=== PATIENT | male | born 1990 | race African-American/Black ===

== ENCOUNTER 2023-12-31 23:51 | Emergency (ER) | payer OTHER, SELFPAY ==
[2024-01-01 00:10] VITALS: BP 142/89; PULSE 94; RESP 18; TEMP 36.3; O2SAT 98; BMI 32.9
--- NOTE | 2024-01-01 00:45 | ED.WOUNDLAC ---
HPI - Wound/Laceration General Chief Complaint: Wound/Laceration Stated Complaint: left hand wound Time Seen by Provider: 01/01/24 00:20 Source: patient and RN notes reviewed Mode of arrival: ambulatory Limitations: no limitations History of Present Illness HPI narrative: This is a 33-year-old male, with no known medical problems, who presents emergency department with complaints of left palmar laceration which occurred just prior to arrival. Patient states that he was cutting a ribbon off of a glass for his wedding and accidentally broke the glass and lacerated his left hand. He reports that his tetanus is up-to-date. Denies any numbness, tingling or weakness. Denies any other complaints or concerns at this time. Onset (ago): minute(s) Extremity Location: left: hand Place: home Patient tetanus UTD: Yes Context: accidental Associated symptoms: none Related Data Allergies Allergy/AdvReac Type Severity Reaction Status Date / Time nut - unspecified Allergy Anaphylaxis Verified 01/01/24 00:11 shellfish derived Allergy Anaphylaxis Verified 01/01/24 00:11 Review of Systems Review of Systems: Yes all other systems are reviewed and are negative Constitutional: Constitutional: Reports as per HPI [facility] Past Medical History Attestation statement: The following information was validated with the patient. Social History Social History Advance Directives: No Advance Directives Information Provided: No Physical Exam Vital Signs: Vital Signs: Last Vital Signs Temp 97.3 F 01/01/24 00:10 Pulse 94 01/01/24 00:10 Resp 18 01/01/24 00:10 BP 142/89 H 01/01/24 00:10 Pulse Ox 98 01/01/24 00:10 O2 Del Method Room Air 01/01/24 00:10 BMI result Body Mass Index 32.9 Const: General: cooperative, comfortable and no acute distress Orientation/consciousness: patient oriented x3 Limitations: no limitations HEENT: Head: Yes normal to inspection, Yes normocephalic and Yes atraumatic Ears: hearing grossly normal bilaterally General nose exam: Normal external nose present Face and sinus: Yes normal facial exam Mouth: Normal oral and palatal mucosa present, oropharynx normal and moist mucous membranes Throat: Yes posterior oropharynx normal Eyes: General: appearance normal, both eyes and all related structures Eyelids: Yes eyelids normal Conjunctivae: conjunctivae normal Sclerae: sclerae normal Pupils: Equal, round and reactive pupils present EOM: EOMs intact bilaterally Neck: Neck: Yes normal visual inspection, Yes full ROM and Yes no lymphadenopathy Lymphatic: no lymphadenopathy noted Chest: Chest palpation & inspection: normal inspection of the chest Resp: Effort & Inspection: normal respiratory effort and able to speak in complete sentences Auscultation: clear to auscultation bilaterally, no crackles, no rales, no rhonchi and no wheezes Cardio: Rate: regular rate Rhythm: regular rhythm Heart sounds: S1 normal heart sound present and S2 normal heart sound present GI: Inspection: Yes normal to inspection Skin: Other: 2 cm superficial laceration noted to the left palmar aspect overlying with carpal. No tendon involvement, full range of motion. No active bleeding General skin exam: no rashes or lesions noted Trauma: no lacerations or abrasions Wounds: no wounds Neuro: General: patient oriented x3 and moves all extremities Cranial nerves: Yes Equal, round and reactive pupils present Extrem: General: Yes normal to inspection Right upper extremity: normal to inspection Left upper extremity: normal to inspection Right lower extremity: normal to inspection Left lower extremity: normal to inspection Medical Decision Making Medical Decision Making MDM Narrative: This is a 33-year-old male, with no known medical problems, with complaints of left hand laceration. On arrival, patient mildly hypertensive at 142/89. He has a superficial laceration noted to his left palm, no active bleeding. Differential diagnoses include laceration, abrasion, contusion, foreign body-unlikely. Wound was thoroughly cleansed with saline and Betadine. Wound was closed with skin glue and Steri-Strips as this was only a superficial laceration. Patient tolerated procedure well. Patient tetanus up-to-date. Patient given return precautions. Patient understands and agrees with plan. Patient stable for discharge. Differential Diagnosis Differential Diagnoses: The differential diagnosis associated with the presentation includes See above Admission/Observation Consideration of admission/observation: Escalation of care including admission/observation considered Radiology Impression Discussion of test interpretation with radiology: I have reviewed the radiologist's reading. External Record Review External record reviewed: Inpatient record, Office record, Outpatient record, Prior outpatient labs, Prior outpatient radiology, Primary care record and Outside ED record Procedures Laceration Laceration 1: Site: hand Side (If applicable): left Size (cm): 2 Description: linear Depth: simple, single layer Pre-repair: wound explored, irrigated extensively and deep structures intact Skin layer closed with: other (Skin glue and Steri-Strips) Discharge Plan Discharge Clinical Impression: Laceration Patient Disposition: Home, Self-Care Instructions: Skin Adhesive Care (ED), Steristrips (ED) Additional Instructions: Your seen in the emergency department after cutting your left hand. We closed this using skin glue and Steri-Strips. Keep wound clean and dry. Watch for any signs of infection including but not limited to increased redness, swelling, drainage. If any of these occur, please seek emergent care. Do not submerge wound, do not pick at wound, Steri-Strips as well as skin glue will fall off on its own. If any new or worsening symptoms occur please return for re-evaluation. Print Language: New Zealander
== END 2024-01-01 01:14 | disposition home or self-care (01) ==
PROVIDERS: Emergency Provider Emergency Medicine Emergency Medical Services
DX: S61.412A Laceration without foreign body of left hand, initial encounter (principal); M79.642 Pain in left hand; W25.XXXA Contact with sharp glass, initial encounter; Y93.9 Activity, unspecified; Y92.009 Unspecified place in unspecified non-institutional (private) residence as the place of occurrence of the external cause; Y99.8 Other external cause status
CPT/HCPCS: 12041; 99281; 99282; 99284

== ENCOUNTER 2025-02-06 11:53 | Emergency (ER) | payer OTHER, SELFPAY ==
--- NOTE | ~2025-02-06 | XR_ITS ---
EXAMINATION: XR CHEST 2 VIEWS HISTORY: chest pain COMPARISON: There are no prior studies for comparison. FINDINGS: PA and lateral views of the chest are submitted. The lungs are expanded and clear. There is no pleural effusion, pneumothorax, or pulmonary vascular congestion. The heart is normal in size. The bones are intact. XR/XR chest 2V IMPRESSION: Normal examination of the chest. Electronically signed by: Jones Thrasher MD 02/06/2025 12:27 PM EDT
--- NOTE | 2025-02-06 11:58 | ECG_ITS ---
Test Reason : cp Blood Pressure : */* mmHG Vent. Rate : 87 BPM Atrial Rate : 87 BPM P-R Int : 134 ms QRS Dur : 84 ms QT Int : 338 ms P-R-T Axes : 25 -2 9 degrees QTcB Int : 406 ms Normal sinus rhythm Minimal voltage criteria for LVH, may be normal variant ( R in aVL ) Borderline ECG No previous ECGs available Referred By: Meghan Pascual Electronically Signed By: GATITO PINEDA MD
[2025-02-06 12:10] VITALS: BP 146/103; PULSE 82; RESP 16; TEMP 36.1; O2SAT 98; BMI 34.0
--- NOTE | 2025-02-06 12:11 | ED.CHESTPAIN ---
HPI - Chest Pain General Chief Complaint: General Medical Stated Complaint: 2 Weeks Without Blood Pressure Medicine,Chest Pain Time Seen by Provider: 02/06/25 12:05 Source: patient, family and old records reviewed Mode of arrival: ambulatory Limitations: no limitations History of Present Illness ED Provider: JAGDISH CAMPBELL narrative: 34 yo male with PMH of HTN not on his BP meds x 3 weeks has issues with getting refill. He now has headaches, chest pains, feels winded. He has no swelling, no recent infection, no travel or procedures. His highest BP has 146/88. He states he know it is his blood pressure. No numbness or weakness. He states he feels fine otherwise. No hx of blood clots. He walked in with no issues. MD complaint: chest pain Onset (ago): week(s) (2) Timing of current episode: constant Prior episodes: Yes Onset: during rest Pain location: substernal Pain radiation: none Severity: moderate Quality: aching Relieving factors: nothing Exacerbating factors: nothing Context: other Associated symptoms: dyspnea and other (headaches) Treatment prior to arrival: none Related Data Previous Rx's ?Medication ?Instructions ?Recorded lisinopril 10 1 tab PO DAILY #90 tabs 02/06/25 mg-hydrochlorothiazide 12.5 mg tablet Allergies Allergy/AdvReac Type Severity Reaction Status Date / Time nut - unspecified Allergy Anaphylaxis Verified 02/06/25 12:12 shellfish derived Allergy Anaphylaxis Verified 02/06/25 12:12 Review of Systems Review of Systems: Constitutional : No Weight loss, No Fever, No Chills ENT/Mouth : No sore throat, No Rhinorrhea Eyes: No Eye Pain, No Swelling Cardiovascular : pos Chest Pain, pos SOB, no Dyspnea on Exertion, No Orthopnea, No Edema, No Palpitations Respiratory : No Cough, No Sputum Gastrointestinal : no Nausea, No Vomiting, No Diarrhea, No abdominal Pain, No Hematochezia, No Melena Genitourinary : No Dysuria, No Urinary Frequency Musculoskeletal : No joint pain, No Myalgias, No Joint Swelling Skin : No Skin Lesions, No rash Neuro : No Weakness, No Numbness, No Dizziness, pos Headache All other systems reviewed and are negative PMFSH Past Medical History Attestation statement: The following information was validated with the patient. Source: old records reviewed Medical History (Updated 02/06/25 @ 12:16 by Meghan Pascual DO) HTN (hypertension) Social History Social History (Updated 02/06/25 @ 12:16 by Meghan Pascual DO) Patient Tobacco Use Status: Never used Tobacco Do you have a plan to hurt others: No Plan Physical Exam Vital Signs: Vital Signs: Last Vital Signs Temp 97.0 F 02/06/25 12:10 Pulse 82 02/06/25 12:10 Resp 16 02/06/25 12:10 BP 146/103 H 02/06/25 12:10 Pulse Ox 98 02/06/25 12:10 O2 Del Method Room Air 02/06/25 12:10 BMI result Body Mass Index 34.0 Appearance: Alert. Oriented X3. No acute distress. Eyes: Pupils equal, round and reactive to light. ENT: Pharynx normal. Neck: Normal inspection. Neck supple. CVS: Normal heart rate and rhythm. Pulses normal. Respiratory: No respiratory distress. Breath sounds normal. Abdomen: Soft and nontender. Skin: Skin warm and dry. Normal skin color. Normal skin turgor. Extremities: No lower extremity edema. No calf ttp Neuro: Oriented X 3. No motor deficit. No sensory deficit. CN2-12 intact, steady gait NIH Stroke Scale Internal: Initial- Upon Arrival Level of Consciousness: Alert Level of Consciousness Questions: Answers both questions correctly Level of Consciousness Commands: Performs both tasks correctly Best Gaze: Normal Visual: No visual loss Facial Palsy: Normal Motor Arm (Right): No drift Motor Arm (Left): No drift Motor Leg (Right): No drift Motor Leg (Left): No drift Limb Ataxia: Absent Sensory: Normal Best Language: No aphasia Dysarthia: Normal Extinction and Inattention: No abnormality Score: 0 Medical Decision Making Medical Decision Making [facility] Narrative: 34 yo male with PMH of HTN here with c/o headaches, fatigue, chest pain x 2 weeks but no risk factors for PE he is PERC negative, he is comfortable and laughing doubt dissection. Will obtain basic labs, EKG, CXR and start back on his medications. Differential Diagnosis Differential Diagnoses: The differential diagnosis associated with the presentation includes HTN, anxiety, atypical chest pain Admission/Observation Consideration of admission/observation: Escalation of care including admission/observation considered work up negative stable for DC Lab Data [facility] Lab Attestation statement: I reviewed the patient's lab results. 02/06/25 12:08 02/06/25 12:08 Labs: Lab Results 02/06/25 Range/Units 12:08 WBC 8.9 (4.8-10.8) X10*3/uL RBC 4.63 (4.60-5.80) X10*6/uL Hgb 14.3 (14.0-18.0) g/dl Hct 41.0 L (42.0-52.0) % MCV 88.6 (80.0-98.0) fL MCH 30.9 (27.0-33.0) pg MCHC 34.9 (31.0-36.0) g/dl RDW 11.7 (11.0-16.0) % Plt Count 192 (160-400) X10*3/uL MPV 11.3 (9.4-12.4) fL Immature Gran % (Auto) 0.3 (0.0-0.4) % Neut % (Auto) 56.5 (45-73) % Lymph % (Auto) 26.0 (20-40) % [place] % (Auto) 7.0 (2-11) % Eos % (Auto) 9.1 H (0-4) % Baso % (Auto) 1.1 (0-2) % Lymph # (Auto) 2.3 (1.2-4.9) X10*3/uL [place] # (Auto) 0.6 (0.1-1.2) X10*3/uL Eos # (Auto) 0.8 H (0.0-0.4) X10*3/uL Baso # (Auto) 0.1 (0.0-0.2) X10*3/uL Abs Immat Gran (auto) 0.03 (0.00-0.03) X10*3/uL Absolute Neuts (auto) 5.0 (2.0-8.3) x10*3/uL Absolute Nucleated RBC 0.000 (0.0-0.012) X10*3/uL Nucleated RBC % (auto) 0.0 (0.0-0.2) /100WBC Sodium 140 (135-145) mmol/L Potassium 4.5 (3.3-5.1) mmol/L Chloride 112 H (96-108) mmol/L Carbon Dioxide 22 (22-29) mmol/L Anion Gap 11 L (12-20) BUN 20 H (9-16) mg/dL Creatinine 1.33 (0.5-1.4) mg/dL Estim Creat Clear Calc 94.8 Estimated GFR > 60 Random Glucose 105 (60-115) mg/dL Calcium 9.4 (8.4-10.2) mg/dL Magnesium 2.0 (1.6-2.6) mg/dL Total Bilirubin 0.4 (0.0-1.0) mg/dL Direct Bilirubin 0.1 (0.0-0.5) mg/dL AST 29 (5-37) U/L ALT 42 H (0-40) U/L Alkaline Phosphatase 42 (39-117) U/L Troponin I High Sens < 2.7 (<3.5-35.0) ng/L Total Protein 7.4 (6.5-8.0) g/dL Albumin 4.3 (3.5-5.0) g/dL Independent Interpretation I performed an independent interpretation of an: EKG and Plain X-Ray (normal ) Interpretation: Rate: 87 Rhythm: NSR [place]: left, LVH Normal P waves. Normal LC. Normal QRS complex. ST T wave : normal no RUSTAM qTC: 406 prior studies: no acute ischemia The study has been interpreted contemporaneously by me. . Radiology Impression Discussion of test interpretation with radiology: I have reviewed the radiologist's reading. Independent Historian Clinical information obtained from an independent historian. History obtained from or confirmed by: Spouse External Record Review External record reviewed: Outpatient record Prescription Management I considered prescription management with: Other Discharge Plan Discharge Clinical Impression: Hypertension, uncontrolled, Atypical chest pain Patient Disposition: Home, Self-Care Instructions: Chest Pain (ED), Chronic Hypertension (ED) Additional Instructions: labs, chest xray and EKG reassuring follow up with your doctor return for any worsening symptoms or concerns. Prescriptions: New lisinopril-hydrochlorothiazide 10-12.5 mg tablet 1 tab PO DAILY Qty: 90 2RF Stand Alone Forms: Work/School Release Print Language: Tuvaluan
[2025-02-06 12:12] LABS: MANUAL DIFF FLAG NO
[2025-02-06 12:17] LABS: Basophils Absolute Auto 0.1 X10*3/uL (0.0-0.2); Basophils Percent Auto 1.1 % (0-2); Eosinophils Absolute Auto 0.8 X10*3/uL (0.0-0.4); Eosinophils Percent Auto 9.1 % (0-4); Hemoglobin 14.3 g/dl (14.0-18.0); Imm Gran Abs Auto 0.03 X10*3/uL (0.00-0.03); Imm Gran Pct Auto 0.3 % (0.0-0.4); Lymphocytes Absolute Auto 2.3 X10*3/uL (1.2-4.9); Mean Corpuscular HGB Conc 34.9 g/dl (31.0-36.0); Mean Corpuscular Hemoglobin 30.9 pg (27.0-33.0); Mean Corpuscular Volume 88.6 fL (80.0-98.0); Mean Platelet Volume 11.3 fL (9.4-12.4); Monocytes Absolute Auto 0.6 X10*3/uL (0.1-1.2); Neutrophils Percent Auto 56.5 % (45-73); Platelet Count 192 X10*3/uL (160-400); Red Blood Count 4.63 X10*6/uL (4.60-5.80); Red Cell Distribution Width 11.7 % (11.0-16.0); White Blood Count 8.9 X10*3/uL (4.8-10.8)
[2025-02-06 12:33] LABS: Alanine Aminotransferase 42 U/L (0-40); Albumin Level 4.3 g/dL (3.5-5.0); Alkaline Phosphatase 42 U/L (39-117); Anion Gap 11 (12-20); Aspartate Amino Transferase 29 U/L (5-37); Bilirubin Direct 0.1 mg/dL (0.0-0.5); Bilirubin Total 0.4 mg/dL (0.0-1.0); Blood Urea Nitrogen 20 mg/dL (9-16); Calcium 9.4 mg/dL (8.4-10.2); Carbon Dioxide 22 mmol/L (22-29); Chloride 112 mmol/L (96-108); Creatinine Clr Calc Pharmacy 94.8; Estimated Glomerular Filt Rate > 60; Glucose Random 105 mg/dL (60-115); Potassium 4.5 mmol/L (3.3-5.1); Sodium 140 mmol/L (135-145); Total Protein 7.4 g/dL (6.5-8.0)
[2025-02-06 12:46] LABS: Troponin-I High Sensitivity < 2.7 ng/L (<3.5-35.0)
[2025-02-06 13:36] VITALS: BP 146/103; PULSE 82; RESP 16; TEMP 36.1; O2SAT 98
--- OUTSIDE RECORDS SUMMARY | 2025-02-06 13:52 | XMS_ITS | Encounter Summary ---
Author Organization [facility] Address [address] [place] [address] Care Team Providers Care Manager Spanish Name Role Phone Teodora Lisa MD Primary Care Provider [phone] Reason for Visit * Reason Onset Date Comments Medication Problem 02/05/2025 Encounter Details Date Type Department Care Team (Late st Contact Info) Description 02/05/2025 Telephone Adult Medicine [address] [id number] Teodora Lisa MD [address] [place], [place] [id number] Medication Problem Social History Tobacco Use Types Packs/Day Years [...] on file documented as of this encounter Progress Notes * Svetlana Guardado MA - 02/06/2025 1:28 PM EDT I called patient but got vm that is not set up yet * Joleen Lara - 02/06/2025 9:29 AM EDT I tried to call patient but couldn't reach him. If he calls, please let him know the following. Patient has [employer] which normally requires a 90 day supply for scripts. In this case the patient's script has been sent to pharmacy for 30 day supply only as he has cancelled an appt on 12/26/24 and no showed another on 09/27/24 and is overdue for an office visit. Patient has an appointment on 02/13/25 for blood pressure follow up and script for 90 day supply willbe discussed at that time. I spoke with Caroline at [facility] and she is aware of situation. 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 * Joleen Lara - 02/06/2025 9:22 AM EDT Patient calling to check on status * Beth Yee - 02/05/2025 3:55 PM EDT Patient calling back and wanting to speak with someone due to he needs his medication and has been out. * Cici Jara - 02/05/2025 11:55 AM EDT Patient's is calling. The pharmacy does have the prescription but [facility] rejected this because he has to have a 90 day supply sent in, other paniagua the patient has to pay out of pocket. [facility] no longer approves 30 day refills. Please send a new prescription to [facility] on [address], [place], [place]. * Vince Bazzi - 02/05/2025 11:05 AM EDT Patient called stating that lisinopril was not received at the pharmacy , would like us to contact the pharmacy and verify and then contact patient documented in this encounter Plan of Treatment Upcoming Encounters Date Type Department Care Team (Late st Contact Info) Description 02/13/2025 9:45 AM EDT Office Visit Adult [address] [phone] Maryuri Quinteros NP [address] [place], [place] 07/17/2025 9:00 AM EST Office Visit [address] [phone] Teodora Lisa MD [address] [place] [address] documented as of this encounter Visit Diagnoses Not on filedocumented in this encounter Care Teams Manager Spanish Relationship Specialty Start Date End Date Teodora Lisa MD [address] [place] [address] PCP - General Internal Medicine 12/04/15 documented as of this encounter
== END 2025-02-06 13:10 | disposition home or self-care (01) ==
LOC: HO.ED 13:05
PROVIDERS: Emergency Provider Emergency Medicine; PCP Internal Medicine
DX: R07.89 Other chest pain (principal); I10 Essential (primary) hypertension; R51.9 Headache, unspecified; R06.02 Shortness of breath; R29.700 NIHSS score 0
CPT/HCPCS: 36415; 71046; 80048; 80076; 83735; 84484; 85025; 93005; 99283

== ENCOUNTER → 2025-02-06 11:58 | Outpatient (BNV) | payer OTHER, SELFPAY | PROVIDERS: Emergency Provider Emergency Medicine; PCP Internal Medicine; Visit Provider Internal Medicine Cardiovascular Disease | DX: R07.9 Chest pain, unspecified (principal) | CPT/HCPCS: 93010 ==

== ENCOUNTER → 2025-02-06 12:05 | Outpatient (BNV) | payer OTHER, SELFPAY | PROVIDERS: Emergency Provider Emergency Medicine; PCP Internal Medicine; Visit Provider Radiology Diagnostic Radiology | DX: R07.9 Chest pain, unspecified (principal) | CPT/HCPCS: 71046 ==

== ENCOUNTER 2025-06-27 22:47 | Emergency (ER) | payer OTHER, SELFPAY ==
--- OUTSIDE RECORDS SUMMARY | 2024-06-21 08:19 | XMS_ITS | Encounter Summary ---
Author Organization [facility] Address [address] [place] [address] Care Team Providers Care Business Analysis Consultant Name Role Phone Teodora Lisa MD Primary Care Provider [phone] Encounter Details Date Type Department Care Team (Late Contact Info) Description 06/21/2024 8:19 AM EDT Hospital Encounter TH HISTORIC ENCOUNTERS EASTERN CONVERSION ONLY Maryuri Quinteros, STAMPER BLOCKER [address] [place], [place] Gastro-esophageal reflux disease without esophagitis Social [...] 9:00 AM EST Office Visit Adult Medicine [address] [phone] Teodora Lisa MD [address] [place] [address] documented as of this encounter Procedures Procedure Name Priority Date/Time Associated Diagnosis Comments CR BARIUM SWALLOW Routine 06/21/2024 11: 37 AM EDT Gastro-esophageal reflux disease without esophagitis documented in this encounter Results * CR BARIUM SWALLOW (06/21/2024 11:37 AM EDT) Anatomical Region Laterality Modality Radiographic Lo ging 06/21/2024 8:27 AM EDT Narrative 06/21/2024 11:37 AM EDT [facility] Diagnostic Imaging Department [address] [place] [address] Patient: CASE CROUCH /Age/Sex: 1990 - 33 - M Unit#: [id number] Location/Status: [facility]/REG CLI Mnemonic/Ordering Site: [facility] Ordering Physician: LINDA QUINTEROS APRN CR Barium Swallow - 06/21/24905 Report Status:Signed FINDINGS: Double contrast esophagram performed. Exam somewhat limited due to patient inability to tolerate contrast while lying flat. COMPARISON: 2 view chest x-ray July 13, 2023 HISTORY: Patient is a 33-year-old male with history of choking, globus sensation, GERD. Slag Mixer radiographs: 1 view chest x-ray demonstrates cardiac [...] hiatal hernia without visualized gastroesophageal reflux 4. Rfkx-zf-nvydxkqm circumferential narrowing at the area of the GE junction with question of thickening mucosal folds, concerning for stricture in the setting of reflux esophagitis. Consider direct visualization with endoscopy. Dictating Physician: KAREN THOMAS MD Electronically Signed by: KAREN THOMAS MD Dic Date/Time: 06/21/24 1106 Sign date/Time: 06/21/24 1137 Procedure Note Karen Thomas MD - 07/10/2024 [facility] Diagnostic Imaging Department [address] [place] [address] [phone] Patient: CASE CROUCH /Age/Sex: 1990 - 33 - M Unit#: [id number] Location/Status: [facility]/REG CLI Mnemonic/Ordering Site: [facility] Ordering Physician: LINDA QUINTEROS APRN CR Barium Swallow - 06/21/24 - 905 Report Status:Signed FINDINGS: Double contrast esophagram performed. Exam somewhat limited dueto patient inability to tolerate contrast while lying flat. COMPARISON: 2 view chest x-ray July 13, 2023 HISTORY: Patient is a 33-year-old male with history of choking, globus sensation, GERD. Slag Mixer radiographs: 1 view chest x-ray demonstrates cardiac [...] axial hiatal hernia without visualizedgastroesophageal reflux 4. Hhlx-sf-oxrqnmfz circumferential narrowing at the area of the GEjunction with question of thickening mucosal folds, concerning for stricture inthe setting of reflux esophagitis. Consider direct visualization withendoscopy. Dictating Physician: KAREN THOMAS MD Electronically Signed by: KAREN THOMAS MD Dic Date/Time: 06/21/24 1106 Sign date/Time: 06/21/24 1137 us Maryuri Quinteros STAMPER BLOCKER IMG XR PROCEDURES Final Resu lt documented in this encounter Visit Diagnoses Diagnosis Gastro-esophageal reflux disease without esophagitis documented in this encounter Care Teams Business Analysis Consultant Relationship Specialty Start Date End Date Teodora Lisa MD [address] [place] [address] PCP - General Internal Medicine 12/04/15 documented as of this encounter
[2025-06-27 22:49] VITALS: BMI 34.0
[2025-06-27 23:10] VITALS: BP 103/70; PULSE 88; RESP 20; O2SAT 96
--- NOTE | 2025-06-27 23:13 | ED_ITS ---
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 The patient reports he has a peanut butter and jelly sandwich that he is able to eat at home without reaction, however today ate a peanut butter and jelly sandwich that he obtained from the store, and shortly thereafter began experiencing swelling sensation of his throat with the associated nonproductive cough and nausea. The patient denies associated urticaria, voice changes, tongue swelling, lip swelling, wheezing, or stridor. The patient did not taken any medications for his symptoms prior to arrival in the ED. Related Data Previous Rx's ?Medication ?Instructions ?Recorded lisinopril 10 1 tab PO DAILY #90 tabs 01/11 8/25 mg-hydrochlorothiazide 12.5 mg tablet diphenhydramine HCl 25 mg capsule 25 mg PO TID PRN all ergic reaction 06/28/25 (Allergy (diphenhydramine)) #20 caps famotidine 20 mg tablet (Pepcid) 20 mg PO BID 5 days # 10 tabs 06/28/25 prednisone 20 mg tablet 60 mg (3 x 20 mg) PO DAILY 5 days 06/28/25 #15 tabs Allergies Allergy/AdvReac Type Severity Reaction Status Date / Time nut - unspecified Allergy Anaphylaxis Verified 06/27/25 22:50 shellfish derived Allergy Anaphylaxis Verified 06/27/25 22:50 Review of Systems Review of Systems: Yes all other systems are reviewed and are negative [facility] Past Medical History Medical History (Updated 06/28/25 @ 01:02 by Ravi Krueger PA-C) HTN (hypertension) Social History Social History (Updated 02/06/25 @ 12:16 by Meghan Pascual DO) Patient Tobacco Use Status: Never used Tobacco Advance Directives: No Advance Directives Information Provided: Yes Physical Exam ED Vital Signs: Vital Signs - 24 hr 06/27/25 23:10 Pulse Rate 88 Respiratory Rate 20 Blood Pressure 103/70 Pulse Oximetry 96 Oxygen Delivery Method Room Air BMI result Body Mass Index 34.0 CONSTITUTIONAL: The patient appears non-toxic, well nourished and in no acute distress. Vital signs as documented. HEAD: Atraumatic, normocephalic. EYES: EOMs grossly intact, pupils equal, conjunctiva clear, no exudate. ENT: Nares patent, no discharge. Airway patent, no audible stridor, visible mucosa is pink and moist without noted lesions. Posterior pharynx demonstrates midline nonedematous uvula, no peritonsillar or tonsillar swelling, no pooling secretions, no stridor. NECK: Trachea is midline, no obvious masses or gross abnormalities. CHEST: Symmetric movement, normal appearance. LUNGS: LS present and CTAB, no w/r/r. Non-labored work of breathing. CARDIAC: Regular Rhythm, S1/S2 appreciated, no murmurs, rubs or gallops. ABDOMEN: Abdomen soft and non-tender x4 quadrants, no palpable masses or organomegaly. : Deferred. EXTREMITIES: Normal tone, moves all extremities spontaneously without reported pain. No obvious acute injury or deformity noted. NEURO: Alert and oriented x3, CN II-XII appear grossly intact. Cerebellar Functioning grossly intact. No obvious sensory or motor deficits. Speech clear and appropriate. PSYCH: normal affect, appropriate eye contact, fluid speech, with appropriate response to questioning. No reported suicidality or homicidality. SKIN: Warm, dry, color appropriate, normal turgor. No rashes noted. Medications Administered Discontinued Medications Generic Name Dose Route Start Last Admin Trade Name Freq PRN Reason Stop Dose Admin Diphenhydramine HCl 50 mg 06/27/25 22:50 06/27/25 23:06 Diphenhydramine Hcl 50 Mg/Ml Vial IVPUSH 06/27/25 22:51 50 mg ONCE ONE Administration Famotidine 20 mg 06/27/25 22:50 06/27/25 23:07 Famotidine 20 Mg Tablet PO 06/27/25 22:51 20 mg ONCE ONE Administration Sodium Chloride 1,000 mls @ 999 mls/hr 06/27/25 23:00 06/27/25 23:07 Ns IV 06/28/25 00:00 999 mls/hr .Q1H1M CARINA Administration Methylprednisolone Sodium Succinate 125 mg 06/27/25 22:50 06/27/25 23:06 Methylprednisolone Sod Succ 125 Mg/2 Ml Vial IVPUSH 06/27/25 22:51 125 mg ONCE ONE Administration Ondansetron HCl 4 mg 06/27/25 22:50 06/27/25 23:05 Ondansetron Hcl 4 Mg/2 Ml Vial IVPUSH 06/27/25 22:51 4 mg ONCE ONE Administration Medical Decision Making Medical Decision Making [facility] Narrative: 11:14 PM 06/27/2025 (Debbie CONCEPCION): The patient is a 34-year-old male presenting to the ED reporting a 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 The patient reports he has a peanut butter and jelly sandwich that he is able to eat at home without reaction, however today ate a peanut butter and jelly sandwich that he obtained from the store, and shortly thereafter began experiencing swelling sensation of his throat with the associated nonproductive cough and nausea. The patient denies associated urticaria, voice changes, tongue swelling, lip swelling, wheezing, or stridor. The patient did not taken any medications for his symptoms prior to arrival in the ED. On exam the patient has no posterior pharyngeal swelling, wheezing, stridor, urticaria, lip swelling or tongue swelling. The patient however reports subjective shortness of breath and throat swelling/closing sensation. The patient will be treated with Solu-Medrol, Pepcid, and Benadryl. We will c ontinue to monitor and consider epinephrine if no improvement. Of note the patient was prescribed lisinopril/HCTZ on May 02 of this year. 11:41 PM 06/27/2025 (Debbie CONCEPCION): The patient is reporting he is now experiencing some chest pain while in the ED, we will obtain EKG and reassess. 12:01 AM 06/28/2025 (Debbie CONCEPCION): EKG shows no evidence of acute ischemia, patient will continue to be monitored. 1:00 AM 06/28/2025 (Debbie CONCEPCION): The patient reports resolution of all his symptoms, reports feeling back to baseline. Re-evaluation reveals no concerning findings. Patient will be discharged with 5 day course of prednisone and Pepcid, with PRN Benadryl. Admission/Observation Consideration of admission/observation: Escalation of care including admission/observation considered Independent Interpretation I performed an independent interpretation of an: EKG (EKG shows sinus rhythm with a rate of 75, no evidence of acute ischemia, question early repolarization, no ectopy. QTC 408. Compared to previous on 02/06/2025 there are no significant morphology changes.) Discharge Plan Discharge Clinical Impression: Allergic reaction Patient Disposition: Home, Self-Care Instructions: General Allergic Reaction (ED) Additional Instructions: Thank you for choosing [facility]'s Emergency Department for your care today. Thankfully your symptoms improved in the ED after administration of medication for your allergic reaction. At this time there is no indication for admission to the hospital or continued ED observation, and it is safe to discharge you home. Please take Pepcid and prednisone for the next 5 days as directed. You may also take Benadryl as needed for additional symptoms. Please follow up with your primary care physician for re-evaluation, additional management of your symptoms, and continued preventative care. If you do not have a primary care physician, please call the [facility] at [phone] to establish a new primary care physician. While waiting to establish your new primary care physician, you can call our [facility] at [phone] for non-emergency needs. Please return to the emergency department if you develop a severe or sudden change in your symptoms, a fever over 100.4 that does not improve with Tylenol or Ibuprofen, recurrent vomiting, or any other new or worsening symptoms or concerns. Prescriptions: New prednisone 20 mg tablet 60 mg PO DAILY 5 Days Qty: 15 0RF famotidine [Pepcid] 20 mg tablet 20 mg PO BID 5 Days Qty: 10 0RF diphenhydramine HCl [Allergy (diphenhydramine)] 25 mg capsule 25 mg PO TID PRN (Reason: allergic reaction) Qty: 20 0RF No Action lisinopril-hydrochlorothiazide 10-12.5 mg tablet 1 tab PO DAILY Qty: 90 2RF Print Language: Tamazight
--- NOTE | 2025-06-27 23:25 | PC.NURSE ---
Assumed care of pt, presents with allergic reaction, pt apparently ate a peanut butter and jelly sandwich, c/o throat swelling with shortness of breath and lip tingling, aaox4, pt medicated for allergic reaction, provider at bedside to assess pt
--- OUTSIDE RECORDS SUMMARY | 2025-06-27 23:25 | XMS_ITS | Clinical Summary ---
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 4 Active albuterol HFA (PROAIR HFA ; PROVENTIL HFA ; VENTOLIN HFA) 90 mcg/actuation inhaler Inhale 2 Puffs into the lungs every 4 hours as needed for Cough. 4 Active albuterol 2.5 mg /3 mL (0.083 %) nebulizer solution TAKE 1 VIAL BY NEBULIZATION EVERY 4 HOURS NEEDED FOR WHEEZING FOR UP TO 180 DAYS. 4 Active lisinopril-hydr oCHLOROthiazide (PRINZIDE,ZESTO RETIC) 10-12.5 mg per tablet Take 1 tablet by mouth 1 (one) time each day. 90 tablet 1 5 Active triamcinolone (KENALOG) 0.1 % cream Apply topically 1 (one) time each day. 30 g 5 Active cetirizine (ZyrTEC) 10 mg tablet TAKE 1 TABLET BY MOUTH EVERY DAY 90 tablet 1 5 Active Active Problems Problem Noted Date Diagnosed Date Stage 3a chronic kidney disease (CMS/HCC V24, CM S/HCC V28) 03/26/2024 Herpes zoster 04/15/2022 Elevated blood pressure reading 02/03/2021 Hypertriglyceridemia 08/17/2018 Eczema 10/03/2017 Allergic rhinitis 02/27/2016 Asthma 02/27/2016 Hearing loss 02/27/2016 Overview (08/06/2024): Bilateral hearing aides s/p Cochlear Implant at [facility] [address] Melendez Hypertension 02/27/2016 Encounters Date Type Department Care Team Description 06/12/2025 Telephone Adult Medicine [address] [address] Fernando Pulido [place] from Last 3 Months Immunizations Immunization Administration Dates Next Due DTaP (Infanrix) 6wks to less than 7yo ,07/02/1996,09/23/1995,06/21,02/04/1995 CWwH-YFV-QHD (Pentacel) 2mo to less than 5yo 07/02/1996,09/23/1995,06/21/1995,02/04 HPV, Quadrivalent 04/25/2013,10/26/2011,08/13/20 11 Hepatitis B Pediatric (Enger ix B; Recombivax HB) to less than 20 yo 09/23/1995,12/10/1994,11/13/1994 Influenza trivalent, 0.5mL, preservative free (Fluarix; FluLaval; Fluzone) ages 6mo and older (Afluria) 3 years and older 06/03/2016,07/16/2015 MMR, measles mumps and rubel la Live (Priorix; M-M-R II) 12mo and older 07/19/1997,07/02/1996 Meningococcal MCV4P 04/25/2013,12/23/2008 OPV 07/19/1997, 6,06/21/1995,02/04 Pneumococcal conjugate 13 va lent (Prevnar 13, PCV13) 2mo and older 12/02/2017 Pneumococcal polysaccharide 23 valent (Pneumovax 23) 2yo and older 09/19/2019 Rabies Vaccine, For Intramus cular Injection Retired Code 08/01/2005,07/18/2005,07/11/2005,07/07,07/04/2005 Tdap Tetanus diptheria acell ular pertussis (Boostrix; Adacel) 7yo and older 06/09/2021,11/01/2019,09/15/2005 Surgical History Surgery Date Site/Laterality Comments NEPHRECTOMY 2009 PROCEDURE: HISTORICAL NEPHRECTOMY; COMMENT: and adrenalectomy OTHER SURGICAL HISTORY PROCEDURE: AR INCISION & DRAINAGE PILONIDAL CYST SIMPLE Medical History Medical History Date Comments Asthma 02/27/2016 DX:Asthma Hypertension 02/27/2016 DX:Hypertension 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; COMMENT: Ganglioneuroma, left adrenalectomy and nephrectomy Herpes zoster conjunctivitis 02/27/2016 DX: Herpes zoster conjunctivitis Hearing loss 02/27/2016 DX:Hearing loss Allergic rhinitis 02/27/2016 DX:Allergic rh initis Family History Medical History Relation Name Comments Hypertension Father Other: sleep apnea Father Other: healthy, no meds Mother live s in [place] Other: deaf Sister Relation Name Status Comments Father Alive Mother Alive Sister Alive Social History Tobacco Use Types Packs/Day Years Used Date Smoking Tobacco: Former Cigarettes 2.5 11.4 0 09/12/2001 - 01/18/2013 Smokeless Tobacco: Never Tobacco Cessation:Counseling Given: Not Answered Alcohol Use Standard Drinks/Week Comments No 0 (1 standard drink = 0.6 oz pur e alcohol) Sex and Gender Information Value Date Recorded Sex Assigned at Not on file Legal Sex Male 3:32 PM EST Gender Identity Not on file Sexual Orientation Not on file Obstetrics History Last Filed Vital Signs Vital Sign Reading Time Taken Comments Blood Pressure 122/90 02/18/2025 5:11 PM EDT Pulse 89 02/18/2025 4:39 PM EDT Temperature 36.2 C (97.1 F) 02/18/2025 4:39 PM EDT Respiratory Rate 16 02/18/2025 4:39 PM EDT Oxygen Saturation 97% 02/18/2025 4:39 PM EDT Inhaled Oxygen Concentration - - Weight 102 kg (225 lb 9.6 oz) 02/18/2025 4:39 PM EDT Height 175.3 cm (5' 9 ) 02/18/2025 4:39 PM EDT Body Mass Index 33.32 02/18/2025 4:39 PM EDT Plan of Treatment Upcoming Encounters Date Type Department Care Team (Late st Contact Info) Description 07/17/2025 9:00 AM EST Office Visit Adult Medicine [facility] [address] [place] [address] Teodora Lisa MD [address] [place] [address] Health Maintenance Due Date Last Done Comments COVID-19 Vaccine (#1) 1997 HIV Screening 08/11/2022 Hepatitis C Screening 08/11/2022 Social Influencers of Health Screening 08/11/2022 Depression Screening 09/12/2024 02/23/2024 Hypertension/CHF/CAD Annual BMP Blood Test 02/22/2025 02/23/2024, 02/23/2024 Influenza Vaccine (#1) 2025 6, 07/16/2015, 08/13/2011, Additional history exists Cholesterol Screening (Lipid Panel) 02/22/2029 02/23/2024, 02/23/2024 DTaP,Tdap,and Td Vaccines (9 - Td or Tdap) 06/09/2031 06/09/2021, 11/01/2019, 09/15/2005, Additional history exists Pneumococcal Vaccine: Pediatrics (0 to 5 Years) and At-Risk Patients (6 to 49 Years) (3 of 3 - PCV20 or PCV21) 2042 09/19/2019, 12/02/2017 RSV Immunization Adult Patients (1 - 1-dose 75+ series) 2067 Varicella Vaccines Aged Out 03/12/1995 No longer eligible based on patient's age to complete this topic Hepatitis B Vaccines Completed 09/23/1995, 12/10/1994, 11/13/1994 HIB Vaccines Completed 07/02/1996, 06/13, 09/23/1995, Additional history exists IPV Vaccines Completed 07/19/1997, 06/13, 09/23/1995, Additional history exists MMR Vaccines Completed 07/19/1997, 07/02/1996 HPV Vaccines Completed 04/25/2013, 10/13, 08/13/2011 Meningococcal ACWY Vaccine Completed 04/25/2013, Hepatitis A Vaccines Aged Out No long er eligible based on patient's age to complete this topic Meningococcal B Vaccine Aged Out No l onger eligible based on patient's age to complete this topic RSV Immunization Patients Under 20 months Aged Out No longer eligible based on patient's age to complete this topic Procedures Procedure Name Priority Date/Time Associated Diagnosis Comments DEPRESSION SCREENING Routine 02/23/2024 ANNUAL BMP BLOOD TEST Routine 02/23/2024 LIPID PANEL Routine 02/23/2024 from Last 3 Months or Most Recently Relevant to Health Maintenance Results * Annual BMP Blood Test (02/23/2024) Pathologist Pending sale to [facility] Annual BMP Blood Test abstracted [facility] Provider HEALTH MAINTENANCE Final Result * Depression Screening (02/23/2024) Pathologist Pending sale to [facility] Depression Screening abstracted [facility] Provider HEALTH MAINTENANCE Final Result * (ABNORMAL) Lipid panel (02/23/2024) [facility] LDL/HDL Ratio 5(A) 0 - 4 Triglycerides 189(A) 0 - 150 mg/dL Cholesterol 152 0 - 200 mg/dL HDL 30(A) >=40 mg/dL LDL Cholesterol 85 0 - 100 mg/dL Blood Venous blood specimen / Unknown [facility] Provider LAB BLOOD ORDERABLES Tereza l Result from Last 3 Months or Most Recently Relevant to Health Maintenance Insurance [id number] [place] [id number] [facility] Care Teams Glass Cutting Machine Operator Relationship Specialty Start Date End Date Teodora Lisa MD [address] [place] [address] PCP - General Internal Medicine 12/04/15
--- NOTE | 2025-06-27 23:40 | ECG_ITS ---
Test Reason : CP Blood Pressure : */* mmHG Vent. Rate : 75 BPM Atrial Rate : 75 BPM P-R Int : 110 ms QRS Dur : 104 ms QT Int : 366 ms P-R-T Axes : 17 13 14 degrees QTcB Int : 408 ms Sinus rhythm with short PA Minimal voltage criteria for LVH, may be normal variant ( R in aVL ) Abnormal ECG When compared with ECG of 06-Feb-2025 11:58, No significant change was found Referred By: Ravi Krueger Electronically Signed By: Figueroa Randle
--- NOTE | 2025-06-27 23:41 | PC.NURSE ---
charge auditor to bedside per registration request. The pt is found sitting upright with shirt off, conversing freely with bedside visitor and without distress noted. He reports 9/10 chest discomfort that he states has been present since arrival and is unchanged adding that it is annoying . GONZALES made aware and new orders for ekg obtained
[2025-06-28 02:00] VITALS: BP 120/67; PULSE 93; RESP 20; TEMP 36.8; O2SAT 94
[2025-06-28 02:35] VITALS: BP 120/67; PULSE 93; RESP 20; TEMP 36.8; O2SAT 94
== END 2025-06-28 02:38 | disposition home or self-care (01) ==
PROVIDERS: Emergency Provider Emergency Medicine; PCP Nurse Practitioner Family
DX: R05.9 Cough, unspecified (principal); R11.0 Nausea; R07.89 Other chest pain; R94.31 Abnormal electrocardiogram [ECG] [EKG]; T78.19XA Other adverse food reactions, not elsewhere classified, initial encounter
CPT/HCPCS: 93005; 96374; 96375; 99284; 99285; J1200; J2405; J2919

== ENCOUNTER → 2025-06-27 23:40 | Outpatient (BNV) | payer OTHER, SELFPAY | PROVIDERS: Emergency Provider Emergency Medicine; PCP Nurse Practitioner Family; Visit Provider Internal Medicine Cardiovascular Disease | DX: R94.31 Abnormal electrocardiogram [ECG] [EKG] (principal); R07.9 Chest pain, unspecified | CPT/HCPCS: 93010 ==

== ENCOUNTER 2025-07-11 09:23 | Inpatient (IN) | payer OTHER, SELFPAY ==
--- OUTSIDE RECORDS SUMMARY | 2024-06-21 08:19 | XMS_ITS | Encounter Summary ---
Author Organization [facility] Address [address] [place] [address] Care Team Providers Care Farm Product Purchaser Name Role Phone Teodora Lisa MD Primary Care Provider [phone] Encounter Details Date Type Department Care Team (Late Contact Info) Description 06/21/2024 8:19 AM EDT Hospital Encounter TH HISTORIC ENCOUNTERS EASTERN CONVERSION ONLY Maryuri Quinteros, EMBROIDERY DESIGNER [address] [place], [place] Gastro-esophageal reflux disease without esophagitis Social [...] Department Care Team (Late Contact Info) Description 07/17/2025 9:00 AM EST Office Visit Adult Medicine [address] [phone] Teodora Lisa MD [address] [place] [address] documented as of this encounter Procedures Procedure Name Priority Date/Time Associated Diagnosis Comments CR BARIUM SWALLOW Routine 06/21/2024 11: 37 AM EDT Gastro-esophageal reflux disease without esophagitis documented in this encounter Results * CR BARIUM SWALLOW (06/21/2024 11:37 AM EDT) Anatomical Region Laterality Modality Radiographic Lo ging 06/21/2024 8:27 AM EDT Narrative 06/21/2024 11:37 AM EDT [facility] Diagnostic Imaging Department [address] [place] [address] Patient: CASE CROUCH /Age/Sex: 1990 - 33 - M Unit#: [id number] Location/Status: [facility]/REG CLI Mnemonic/Ordering Site: [facility] Ordering Physician: LINDA QUINTEROS APRN CR Barium Swallow - 06/21/24905 Report Status:Signed FINDINGS: Double contrast esophagram performed. Exam somewhat limited due to patient inability to tolerate contrast while lying flat. COMPARISON: 2 view chest x-ray July 13, 2023 HISTORY: Patient is a 33-year-old male with history of choking, globus sensation, GERD. Pairer Inspector radiographs: 1 view chest x-ray demonstrates cardiac [...] hiatal hernia without visualized gastroesophageal reflux 4. Vovm-yv-iksbduxy circumferential narrowing at the area of the GE junction with question of thickening mucosal folds, concerning for stricture in the setting of reflux esophagitis. Consider direct visualization with endoscopy. Dictating Physician: KAREN THOMAS MD Electronically Signed by: KAREN THOMAS MD Dic Date/Time: 06/21/24 1106 Sign date/Time: 06/21/24 1137 Procedure Note Karen Thomas MD - 07/10/2024 [facility] Diagnostic Imaging Department [address] [place] [address] [id number] Patient: CASE CROUCH /Age/Sex: 1990 - 33 - M Unit#: [id number] Location/Status: [facility]/REG CLI Mnemonic/Ordering Site: [facility] Ordering Physician: LINDA QUINTEROS APRN CR Barium Swallow - 06/21/24 - 905 Report Status:Signed FINDINGS: Double contrast esophagram performed. Exam somewhat limited dueto patient inability to tolerate contrast while lying flat. COMPARISON: 2 view chest x-ray July 13, 2023 HISTORY: Patient is a 33-year-old male with history of choking, globus sensation, GERD. Pairer Inspector radiographs: 1 view chest x-ray demonstrates cardiac [...] axial hiatal hernia without visualizedgastroesophageal reflux 4. Rcfr-vs-jwizxqzv circumferential narrowing at the area of the GEjunction with question of thickening mucosal folds, concerning for stricture inthe setting of reflux esophagitis. Consider direct visualization withendoscopy. Dictating Physician: KAREN THOMAS MD Electronically Signed by: KAREN THOMAS MD Dic Date/Time: 06/21/24 1106 Sign date/Time: 06/21/24 1137 us Maryuri Quinteros EMBROIDERY DESIGNER IMG XR PROCEDURES Final Resu lt documented in this encounter Visit Diagnoses Diagnosis Gastro-esophageal reflux disease without esophagitis documented in this encounter Care Teams Farm Product Purchaser Relationship Specialty Start Date End Date Teodora Lisa MD [address] [place] [address] PCP - General Internal Medicine 12/04/15 documented as of this encounter
--- NOTE | ~2025-07-11 | CT_ITS ---
EXAMINATION: CT HEAD WITHOUT CONTRAST CLINICAL INFORMATION: headache COMPARISON: None available. TECHNIQUE: Contiguous axial imaging was performed from the skull base to vertex without intravenous administration of contrast. This CT examination was performed using dose optimization techniques as appropriate, variously including the following: *Automated exposure control *Adjustment of mA and/or kV according to patient size (this includes techniques or standardized protocols for targeted exams where dose is matched to indication/reason for exam; i.e. extremities or head) *Use of iterative reconstruction technique DLP: 813 mGy-cm FINDINGS: Beam hardening artifact secondary to metallic cochlear implants/devices, bilaterally. No gross acute intracranial hemorrhage, mass effect, midline shift, hydrocephalus or herniation. Posterior cranial fossa contents demonstrated no gross hemorrhage or mass effect. Normal position of the cerebellar tonsils. Sellar/suprasellar region demonstrated no gross masses. Cochlear implant side the base of the cochlea, bilaterally. Polypoid mucosal thickening, middle turbinates. Small retention cyst, maxillary sinuses and ethmoid air cells. No gross masses or fluid collections in the intraconal or extraconal compartments of the orbits. The eyeballs are intact. CT/CT head/brain wo IV con IMPRESSION: No acute intracranial hemorrhage or acute brain abnormality by CT. Chronic paranasal sinus disease. Electronically signed by: Julian Valerio MD 07/11/2025 12:42 PM EDT
--- NOTE | ~2025-07-11 | XR_ITS ---
CLINICAL HISTORY: constip abdo distention 1 view abdomen Comparison: None provided Findings: Bowel gas pattern is nonobstructive. Moderate colonic and rectal stool. No abnormal calcifications. No acute fractures. Lung bases are clear. IMPRESSION: 1. Nonobstructive bowel gas pattern. 2. Moderate colonic and rectal stool, correlate with constipation. This document has been electronically signed by: Sobeida Blanton MD on 07/14/2025 17:25:14
--- NOTE | ~2025-07-11 | XR_ITS ---
EXAMINATION: XR CHEST CLINICAL INFORMATION: illness, fever COMPARISON: Chest radiograph on February 06, 2025 TECHNIQUE: AP view of the chest was obtained. FINDINGS: Lungs: Low lung volumes. No focal consolidation. No evidence of pulmonary edema. Pleura: Chronic blunting of the left costophrenic angle could be due to focal pleural thickening or trace pleural effusion. No pneumothorax. Heart/Mediastinum: Cardiomediastinal silhouette is within normal limits. Bones: No acute findings. XR/XR chest 1V IMPRESSION: Low lung volumes. No acute cardiopulmonary process. Electronically signed by: William Garcia MD 07/11/2025 10:29 AM EDT
[2025-07-11 09:30] VITALS: BP 110/67; PULSE 110; RESP 16; TEMP 37.9; O2SAT 95; BMI 32.2
--- NOTE | 2025-07-11 09:52 | ED_ITS ---
HPI - General Adult General Chief complaint: General Medical Stated complaint: pain in body bumps neck head Time Seen by Provider: 07/11/25 09:52 Source: patient Mode of arrival: ambulatory Limitations: no limitations History of Present Illness ED Provider: Maria De Jesus Gupta PA-C HPI narrative: Patient is a 34 year old assigned male at with a history of HTN, shingles, and deafness with bilateral cochlear, 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 Patient states that over the last day he has felt generally unwell with nausea, vomiting, a rash to the right side of his neck, and significant head and neck pain. Patient states that when he bends his head down and touches his chin to his chest he has excruciating pain that radiates down his spine. Patient denies any other complaints at this time. Related Data Home Medications ?Medication ?Instructions ?Recorded ?Confirmed cetirizine 10 mg tablet 10 mg PO DAILY PRN Allergy S ymptoms 07/11/25 07/11/25 Previous Rx's ?Medication ?Instructions ?Recorded lisinopril 10 1 tab PO DAILY #90 tabs /05/06 mg-hydrochlorothiazide 12.5 mg tablet Allergies Allergy/AdvReac Type Severity Reaction Status Date / Time nut - unspecified Allergy Anaphylaxis Verified 07/11/25 09:35 shellfish derived Allergy Anaphylaxis Verified 07/11/25 09:35 Review of Systems 2 Constitutional: Constitutional: Reports as per HPI Eyes: Eyes: Reports as per HPI ENT: Reports as per HPI Cardiovascular: Cardiovascular: Reports as per HPI Respiratory: Respiratory: Reports as per HPI Gastrointestinal: Gastrointestinal: Reports as per HPI Genitourinary: Genitourinary: Reports as per HPI Musculoskeletal: Musculoskeletal: Reports as per HPI Integumentary/Breasts: Skin/Breast: Reports as per HPI Neurologic: Reports as per HPI Psychiatric: Psychiatric: Reports as per HPI Endocrine: Endocrine: Reports as per HPI Hematologic/Lymphatic: Hematologic/Lymphatic: Reports as per HPI Allergic/Immunologic: Allergic/Immunologic: Reports as per HPI PMF Past Medical History Attestation statement: The following information was validated with the patient. Source: old records reviewed and nursing notes reviewed Medical History (Updated 07/11/25 @ 17:48 by Denis Logan DO) HTN (hypertension) Social History Social History Household Members: Spouse Housing: Apartment Patient Tobacco Use Status: Never used Tobacco Currently Displaying Signs/Symptoms of Drug Intoxication Withdrawal: No Advance Directives: No Advance Directives Information Provided: No Physical Exam ED Vital Signs: Vital Signs - 24 hr 07/11/25 09:30 07/11/25 10:38 Temperature 100.3 F 98.4 F Pulse Rate 110 H 99 Respiratory Rate 16 16 Blood Pressure 110/67 123/78 Pulse Oximetry 95 97 Oxygen Delivery Method Room Air Room Air BMI result Body Mass Index 32.2 Const General: cooperative, no acute distress, alert and awake Nutritional Appearance: well nourished Orientation/consciousness: patient oriented x3 HENMT Head: Yes normal to inspection and Yes atraumatic Ears: hearing grossly normal bilaterally and external ears normal General nose exam: Normal external nose present, no nasal discharge noted and no epistaxis Face and sinus: Yes normal facial exam, No abrasion and No laceration Mouth: Normal oral and palatal mucosa present, no drooling and no muffled voice Eyes General: appearance normal, both eyes and all related structures Periorbital: periorbital findings normal Eyelids: Yes eyelids normal Conjunctivae: conjunctivae normal Pupils: Equal, round and reactive pupils present EOM: EOMs intact bilaterally Neck Other: +Nuchal rigidity / significant pain with attempt at neck ROM Resp Effort & Inspection: normal respiratory effort and able to speak in complete sentences Cardio Rate: tachycardic Rhythm: regular rhythm Neuro General: patient oriented x3, moves all extremities and CN's II-XI intact bilaterally Cranial nerves: Yes Equal, round and reactive pupils present Cognition (Neuro): normal cognition Extrem General: Yes normal to inspection, Yes full ROM and Yes capillary refill normal Psych Appearance: grossly normal Mental Status: mental status grossly normal Affect: normal affect Attitude: cooperative Thought process: Normal thought process present Thought content: Normal thought content present Insight: Good insight present (Psych) Medications Administered Generic Name Dose Route Start Last Admin Trade Name Freq PRN Reason Stop Dose Admin Enoxaparin Sodium 40 mg 07/11/25 14:00 07/11/25 15:40 Enoxaparin Sodium 40 Mg/0.4 Ml Syringe SUBCUT 40 mg Q24H CARINA Administration Linezolid 600 mg in 300 mls @ 300 mls/hr 07/11/25 16:00 07/11/25 17:14 Zyvox/D5w IV Infused Q12H CARINA Infusion Loratadine 10 mg 07/11/25 17:53 07/11/25 19:31 Loratadine 10 Mg Tablet PO 10 mg DAILY PRN Administration Allergy Symptoms Morphine Sulfate 4 mg 07/11/25 15:22 07/11/25 19:15 Morphine Sulfate 10 Mg/Ml Cartridge IVPUSH 4 mg Q3H PRN Administration Pain, Severe (Pain Scale 7-10) Protocol Oxycodone HCl 10 mg 07/11/25 15:22 07/11/25 16:48 Oxycodone Hcl Immed Release 5 Mg Tablet PO 10 mg Q4H PRN Administration Pain, Moderate(Pain Scale 4-6) Sodium Chloride 3 ml 07/11/25 16:00 07/11/25 19:29 0.9 % Sodium Chloride Flush 3 Ml Syringe IVFLUSH 3 ml QSHIFT CARINA Administration Discontinued Medications Generic Name Dose Route Start Last Admin Trade Name Freq PRN Reason Stop Dose Admin Acetaminophen 1,000 mg in 100 mls @ 400 mls/hr 07/11/25 09:52 07/11/25 10:30 Ofirmev IV 07/11/25 10:06 Infused ONCE ONE Infusion Ceftriaxone Sodium 2 gm/ 50 mls @ 100 mls/hr 07/11/25 09:52 07/11/25 10:50 Sodium Chloride IV 07/11/25 10:21 Infused ONCE ONE Infusion Sodium Chloride 2,121 mls @ 2,121 mls/hr 07/11/25 10:12 07/11/25 12:30 Ns IV 07/11/25 11:11 Infused .Q1H STA Infusion Acyclovir Sodium 700 mg/ 264 mls @ 264 mls/hr 07/11/25 12:00 07/11/25 12:45 Sodium Chloride IV 07/11/25 12:59 Infused ONCE ONE Infusion Vancomycin HCl 2,000 mg in 500 mls @ 250 mls/hr 07/11/25 15:12 07/11/25 15:33 Vancomycin/Ns IV 07/11/25 17:11 Not Given ONCE ONE Lidocaine HCl 10 ml 07/11/25 11:28 07/11/25 11:42 Lidocaine Hcl 1 % Mpf 5 Ml Vial SUBCUT 10/30/25 11:29 10 ml ONCE ONE Administration Methylprednisolone Sodium Succinate 60 mg 07/11/25 09:52 07/11/25 10:15 Methylprednisolone Sod Succ 125 Mg/2 Ml Vial IVPUSH 07/11/25 09:53 60 mg ONCE ONE Administration Morphine Sulfate 4 mg 07/11/25 11:22 07/11/25 11:42 Morphine Sulfate 4 Mg/Ml Cartridge IVPUSH 07/11/25 11:23 4 mg ONCE ONE Administration Protocol Scopolamine 1.5 mg 07/11/25 18:13 07/11/25 18:17 Scopolamine 1.5 Mg Patch.Td.3 EAR-BEHIND 07/11/25 18:14 1.5 mg ONCE ONE Administration Procedures Lumbar Puncture Time Out Performed: Yes Patient Position: upright Skin Prep: Povidone-Iodine 1% Local Anesthetic: lidocaine 1% Amount of anesthesia used (mL): 5 Spinal Needle Gauge: 20G Interspace Used: L4-L5 Fluid Initially Obtained: clear Complications: none Medical Decision Making Medical Decision Making [facility] Narrative: Patient is a 34 year old assigned male at with a history of HTN, shingles, and deafness with bilateral cochlear, 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 Patient's physical exam was as noted in the physical exam portion of this note and concerning for Varicella Zoster meningitis. Patient's blood work showed a WBC of 11.7 and ESR of 20. Patient's chest x-ray and head CT showed no acute process. Patient's respiratory panel was negative. I was suspicious the patient was septic at 0952. Patient was given 30ml/kg bolus of NS based on ideal body weight given the patient is obese with a BMI of 35.6. Patient was given IV ceftriaxone and given his history of nephrectomy - he was given 700mg of IV acyclovir which will be given Q24. Additionally, patient was given steroids. With the assistance / supervision of Dr. Eric Novoa, I performed a lumbar puncture, without incident. CSF showed 590 WBC, 955 RBC, 111.8 total protein. I spoke with the hospitalist team who agreed to admission. I explained my physical exam findings as well as all test results to the patient. I answered all questions asked by the patient. Patient verbalized agreement and understanding with this treatment plan and admission. Differential Diagnosis Differential Diagnoses: The differential diagnosis associated with the presentation includes Meningitis Viral illness Migraine Admission/Observation Consideration of admission/observation: Escalation of care including admission/observation considered Patient admitted as noted in the MDM Rationale portion of this note. Consult Healthcare Provider Management of the patient was discussed with: Hospitalist (agreed to admission as noted in the MDM Rationale portion of this note. ) Lab Data [facility] Lab Attestation statement: I reviewed the patient's lab results. My interpretation of these results are in the MDM Rationale portion of this note. 07/11/25 10:01 07/11/25 10:01 Labs: Lab Results 07/11/25 07/11/25 07/11/25 Range/Units 10: 11:41 13:30 WBC 11.7 H (4.8-10.8) X10*3/uL RBC 4.77 (4.60-5.80) X10*6/uL Hgb 14.4 (14.0-18.0) g/dl Hct 42.8 (42.0-52.0) % MCV 89.7 (80.0-98.0) fL MCH 30.2 (27.0-33.0) pg MCHC 33.6 (31.0-36.0) g/dl RDW 11.3 (11.0-16.0) % Plt Count 184 (160-400) X10*3/uL MPV 11.6 (9.4-12.4) fL Immature Gran % (Auto) 0.3 (0.0-0.4) % Neut % (Auto) 76.3 H (45-73) % Lymph % (Auto) 12.6 L (20-40) % Catron % (Auto) 8.6 (2-11) % Eos % (Auto) 1.9 (0-4) % Baso % (Auto) 0.3 (0-2) % Lymph # (Auto) 1.5 (1.2-4.9) X10*3/uL Catron # (Auto) 1.0 (0.1-1.2) X10*3/uL Eos # (Auto) 0.2 (0.0-0.4) X10*3/uL Baso # (Auto) 0.0 (0.0-0.2) X10*3/uL Abs Immat Gran (auto) 0.03 (0.00-0.03) X10*3/uL Absolute Neuts (auto) 8.9 H (2.0-8.3) x10*3/uL Absolute Nucleated RBC 0.000 (0.0-0.012) X10*3/uL Nucleated RBC % (auto) 0.0 (0.0-0.2) /100WBC ESR 20 H (0-15) MM/HR Sodium 138 (135-145) mmol/L Potassium 4.2 (3.3-5.1) mmol/L Chloride 106 (96-108) mmol/L Carbon Dioxide 24 (22-29) mmol/L Anion Gap 12 (12-20) BUN 23 H (9-16) mg/dL Creatinine 1.76 H (0.5-1.4) mg/dL Estim Creat Clear Calc 69.8 Estimated GFR 45 Random Glucose 108 (60-115) mg/dL Lactic Acid 1.2 (0.5-2.0) mmol/L Calcium 9.5 (8.4-10.2) mg/dL Total Bilirubin 1.2 H (0.0-1.0) mg/dL AST 22 (5-37) U/L ALT 25 (0-40) U/L Alkaline Phosphatase 44 (39-117) U/L C-Reactive Protein 0.28 (< or = 0.50) mg/dL Total Protein 8.1 H (6.5-8.0) g/dL Albumin 4.9 (3.5-5.0) g/dL CSF Tube Number 2 CSF Volume ML CSF Appearance CSF Color CSF WBC MM*3 CSF RBC MM*3 CSF Neutrophils % CSF Lymphocytes % CSF Monocytes % % CSF Other Cells % % CSF Appearance (b) CSF Glucose mg/dL CSF Total Protein (15-45) mg/dL CSF C.neoform/gat PCR (Not Detect.) CSF CMV DNA (PCR) (Not Detect.) CSF Enterovirus (PCR) (Not Detect.) CSF E. coli K1 (PCR) (Not Detect.) CSF H. influenzae (PCR) (Not Detect.) CSF HSV I (PCR) (Not Detect.) CSF HSV II (PCR) (Not Detect.) CSF HHV 6 (PCR) (Not Detect.) CSF L.monocytogenes PCR (Not Detect.) CSF N. meningitidis PCR (Not Detect.) CSF Parechovirus (PCR) (Not Detect.) CSF S. agalactiae (PCR) (Not Detect.) CSF S. pneumoniae (PCR) (Not Detect.) CSF VZV (PCR) (Not Detect.) Respiratory Panel Gregorio See Note Adenovirus (Rapid PCR) Not Detected (Not Detect.) B.pert (TEM-PCR) Not Detected (Not Detect.) B.parapertussis DNA PCR Not Detected (Not Detect.) C. pneumoniae DNA (PCR) Not Detected (Not Detect.) Coronavirus OC43 (PCR) Not Detected (Not Detect.) Coronavirus HKU1 (PCR) Not Detected (Not Detect.) Coronavirus 229E (PCR) Not Detected (Not Detect.) Coronavirus NL63 (PCR) Not Detected (Not Detect.) Human Metapneumovir PCR Not Detected (Not Detect.) Influenza A (RT-PCR) Not Detected (Not Detect.) Influenza A (H1) PCR Not Detected (Not Detect.) Influ A (H1/09) PCR Not Detected (Not Detect.) Influenza A (H3) PCR Not Detected (Not Detect.) Influenza B (RT-PCR) Not Detected (Not Detect.) M. pneumoniae (PCR) Not Detected (Not Detect.) Parainfluenza 1 (PCR) Not Detected (Not Detect.) Parainfluenza 2 (PCR) Not Detected (Not Detect.) Parainfluenza 3 (PCR) Not Detected (Not Detect.) Parainfluenza 4 (PCR) Not Detected (Not Detect.) RSV (PCR) Not Detected (Not Detect.) Entero/Rhino (PCR) Not Detected (Not Detect.) SARS-CoV-2 RNA (RT-PCR) Not Detected (Not Detect.) 07/11/25 07/11/25 07/11/25 Range/Units 13:30 13:30 13:30 WBC (4.8-10.8) X10*3/uL RBC (4.60-5.80) X10*6/uL Hgb (14.0-18.0) g/dl Hct (42.0-52.0) % MCV (80.0-98.0) fL MCH (27.0-33.0) pg MCHC (31.0-36.0) g/dl RDW (11.0-16.0) % Plt Count (160-400) X10*3/uL MPV (9.4-12.4) fL Immature Gran % (Auto) (0.0-0.4) % Neut % (Auto) (45-73) % Lymph % (Auto) (20-40) % Catron % (Auto) (2-11) % Eos % (Auto) (0-4) % Baso % (Auto) (0-2) % Lymph # (Auto) (1.2-4.9) X10*3/uL Catron # (Auto) (0.1-1.2) X10*3/uL Eos # (Auto) (0.0-0.4) X10*3/uL Baso # (Auto) (0.0-0.2) X10*3/uL Abs Immat Gran (auto) (0.00-0.03) X10*3/uL Absolute Neuts (auto) (2.0-8.3) x10*3/uL Absolute Nucleated RBC (0.0-0.012) X10*3/uL Nucleated RBC % (auto) (0.0-0.2) /100WBC ESR (0-15) MM/HR Sodium (135-145) mmol/L Potassium (3.3-5.1) mmol/L Chloride (96-108) mmol/L Carbon Dioxide (22-29) mmol/L Anion Gap (12-20) BUN (9-16) mg/dL Creatinine (0.5-1.4) mg/dL Estim Creat Clear Calc Estimated GFR Random Glucose (60-115) mg/dL Lactic Acid (0.5-2.0) mmol/L Calcium (8.4-10.2) mg/dL Total Bilirubin (0.0-1.0) mg/dL AST (5-37) U/L ALT (0-40) U/L Alkaline Phosphatase (39-117) U/L C-Reactive Protein (< or = 0.50) mg/dL Total Protein (6.5-8.0) g/dL Albumin (3.5-5.0) g/dL CSF Tube Number 4 1 CSF Volume 1.0 1.0 ML CSF Appearance CLEAR CSF Color CSF WBC MM*3 CSF RBC MM*3 CSF Neutrophils % CSF Lymphocytes % CSF Monocytes % % CSF Other Cells % % CSF Appearance (b) CSF Glucose mg/dL CSF Total Protein (15-45) mg/dL CSF C.neoform/gat PCR (Not Detect.) CSF CMV DNA (PCR) (Not Detect.) CSF Enterovirus (PCR) (Not Detect.) CSF E. coli K1 (PCR) (Not Detect.) CSF H. influenzae (PCR) (Not Detect.) CSF HSV I (PCR) (Not Detect.) CSF HSV II (PCR) (Not Detect.) CSF HHV 6 (PCR) (Not Detect.) CSF L.monocytogenes PCR (Not Detect.) CSF N. meningitidis PCR (Not Detect.) CSF Parechovirus (PCR) (Not Detect.) CSF S. agalactiae (PCR) (Not Detect.) CSF S. pneumoniae (PCR) (Not Detect.) CSF VZV (PCR) (Not Detect.) Respiratory Panel Gregorio Adenovirus (Rapid PCR) (Not Detect.) B.pert (TEM-PCR) (Not Detect.) B.parapertussis DNA PCR (Not Detect.) C. pneumoniae DNA (PCR) (Not Detect.) Coronavirus OC43 (PCR) (Not Detect.) Coronavirus HKU1 (PCR) (Not Detect.) Coronavirus 229E (PCR) (Not Detect.) Coronavirus NL63 (PCR) (Not Detect.) Human Metapneumovir PCR (Not Detect.) Influenza A (RT-PCR) (Not Detect.) Influenza A (H1) PCR (Not Detect.) Influ A (H1/09) PCR (Not Detect.) Influenza A (H3) PCR (Not Detect.) Influenza B (RT-PCR) (Not Detect.) M. pneumoniae (PCR) (Not Detect.) Parainfluenza 1 (PCR) (Not Detect.) Parainfluenza 2 (PCR) (Not Detect.) Parainfluenza 3 (PCR) (Not Detect.) Parainfluenza 4 (PCR) (Not Detect.) RSV (PCR) (Not Detect.) Entero/Rhino (PCR) (Not Detect.) SARS-CoV-2 RNA (RT-PCR) (Not Detect.) 07/11/25 07/11/25 07/11/25 Range/Units 13:30 13:30 13:30 WBC (4.8-10.8) X10*3/uL RBC (4.60-5.80) X10*6/uL Hgb (14.0-18.0) g/dl Hct (42.0-52.0) % MCV (80.0-98.0) fL MCH (27.0-33.0) pg MCHC (31.0-36.0) g/dl RDW (11.0-16.0) % Plt Count (160-400) X10*3/uL MPV (9.4-12.4) fL Immature Gran % (Auto) (0.0-0.4) % Neut % (Auto) (45-73) % Lymph % (Auto) (20-40) % Catron % (Auto) (2-11) % Eos % (Auto) (0-4) % Baso % (Auto) (0-2) % Lymph # (Auto) (1.2-4.9) X10*3/uL Catron # (Auto) (0.1-1.2) X10*3/uL Eos # (Auto) (0.0-0.4) X10*3/uL Baso # (Auto) (0.0-0.2) X10*3/uL Abs Immat Gran (auto) (0.00-0.03) X10*3/uL Absolute Neuts (auto) (2.0-8.3) x10*3/uL Absolute Nucleated RBC (0.0-0.012) X10*3/uL Nucleated RBC % (auto) (0.0-0.2) /100WBC ESR (0-15) MM/HR Sodium (135-145) mmol/L Potassium (3.3-5.1) mmol/L Chloride (96-108) mmol/L Carbon Dioxide (22-29) mmol/L Anion Gap (12-20) BUN (9-16) mg/dL Creatinine (0.5-1.4) mg/dL Estim Creat Clear Calc Estimated GFR Random Glucose (60-115) mg/dL Lactic Acid (0.5-2.0) mmol/L Calcium (8.4-10.2) mg/dL Total Bilirubin (0.0-1.0) mg/dL AST (5-37) U/L ALT (0-40) U/L Alkaline Phosphatase (39-117) U/L C-Reactive Protein (< or = 0.50) mg/dL Total Protein (6.5-8.0) g/dL Albumin (3.5-5.0) g/dL CSF Tube Number CSF Volume ML CSF Appearance HAZY CSF Color COLORLESS COLORLESS CSF WBC 465 H* 590 H* MM*3 CSF RBC 46 MM*3 CSF Neutrophils % CSF Lymphocytes % CSF Monocytes % % CSF Other Cells % % CSF Appearance (b) CSF Glucose mg/dL CSF Total Protein (15-45) mg/dL CSF C.neoform/gat PCR (Not Detect.) CSF CMV DNA (PCR) (Not Detect.) CSF Enterovirus (PCR) (Not Detect.) CSF E. coli K1 (PCR) (Not Detect.) CSF H. influenzae (PCR) (Not Detect.) CSF HSV I (PCR) (Not Detect.) CSF HSV II (PCR) (Not Detect.) CSF HHV 6 (PCR) (Not Detect.) CSF L.monocytogenes PCR (Not Detect.) CSF N. meningitidis PCR (Not Detect.) CSF Parechovirus (PCR) (Not Detect.) CSF S. agalactiae (PCR) (Not Detect.) CSF S. pneumoniae (PCR) (Not Detect.) CSF VZV (PCR) (Not Detect.) Respiratory Panel Gregorio Adenovirus (Rapid PCR) (Not Detect.) B.pert (TEM-PCR) (Not Detect.) B.parapertussis DNA PCR (Not Detect.) C. pneumoniae DNA (PCR) (Not Detect.) Coronavirus OC43 (PCR) (Not Detect.) Coronavirus HKU1 (PCR) (Not Detect.) Coronavirus 229E (PCR) (Not Detect.) Coronavirus NL63 (PCR) (Not Detect.) Human Metapneumovir PCR (Not Detect.) Influenza A (RT-PCR) (Not Detect.) Influenza A (H1) PCR (Not Detect.) Influ A (H1/09) PCR (Not Detect.) Influenza A (H3) PCR (Not Detect.) Influenza B (RT-PCR) (Not Detect.) M. pneumoniae (PCR) (Not Detect.) Parainfluenza 1 (PCR) (Not Detect.) Parainfluenza 2 (PCR) (Not Detect.) Parainfluenza 3 (PCR) (Not Detect.) Parainfluenza 4 (PCR) (Not Detect.) RSV (PCR) (Not Detect.) Entero/Rhino (PCR) (Not Detect.) SARS-CoV-2 RNA (RT-PCR) (Not Detect.) 07/11/25 07/11/25 07/11/25 Range/Units 13:30 13:30 13:30 WBC (4.8-10.8) X10*3/uL RBC (4.60-5.80) X10*6/uL Hgb (14.0-18.0) g/dl Hct (42.0-52.0) % MCV (80.0-98.0) fL MCH (27.0-33.0) pg MCHC (31.0-36.0) g/dl RDW (11.0-16.0) % Plt Count (160-400) X10*3/uL MPV (9.4-12.4) fL Immature Gran % (Auto) (0.0-0.4) % Neut % (Auto) (45-73) % Lymph % (Auto) (20-40) % Catron % (Auto) (2-11) % Eos % (Auto) (0-4) % Baso % (Auto) (0-2) % Lymph # (Auto) (1.2-4.9) X10*3/uL Catron # (Auto) (0.1-1.2) X10*3/uL Eos # (Auto) (0.0-0.4) X10*3/uL Baso # (Auto) (0.0-0.2) X10*3/uL Abs Immat Gran (auto) (0.00-0.03) X10*3/uL Absolute Neuts (auto) (2.0-8.3) x10*3/uL Absolute Nucleated RBC (0.0-0.012) X10*3/uL Nucleated RBC % (auto) (0.0-0.2) /100WBC ESR (0-15) MM/HR Sodium (135-145) mmol/L Potassium (3.3-5.1) mmol/L Chloride (96-108) mmol/L Carbon Dioxide (22-29) mmol/L Anion Gap (12-20) BUN (9-16) mg/dL Creatinine (0.5-1.4) mg/dL Estim Creat Clear Calc Estimated GFR Random Glucose (60-115) mg/dL Lactic Acid (0.5-2.0) mmol/L Calcium (8.4-10.2) mg/dL Total Bilirubin (0.0-1.0) mg/dL AST (5-37) U/L ALT (0-40) U/L Alkaline Phosphatase (39-117) U/L C-Reactive Protein (< or = 0.50) mg/dL Total Protein (6.5-8.0) g/dL Albumin (3.5-5.0) g/dL CSF Tube Number CSF Volume ML CSF Appearance CSF Color CSF WBC MM*3 CSF RBC 955 MM*3 CSF Neutrophils 1 3 % CSF Lymphocytes 82 90 % CSF Monocytes % 5 % CSF Other Cells % % CSF Appearance (b) CSF Glucose mg/dL CSF Total Protein (15-45) mg/dL CSF C.neoform/gat PCR (Not Detect.) CSF CMV DNA (PCR) (Not Detect.) CSF Enterovirus (PCR) (Not Detect.) CSF E. coli K1 (PCR) (Not Detect.) CSF H. influenzae (PCR) (Not Detect.) CSF HSV I (PCR) (Not Detect.) CSF HSV II (PCR) (Not Detect.) CSF HHV 6 (PCR) (Not Detect.) CSF L.monocytogenes PCR (Not Detect.) CSF N. meningitidis PCR (Not Detect.) CSF Parechovirus (PCR) (Not Detect.) CSF S. agalactiae (PCR) (Not Detect.) CSF S. pneumoniae (PCR) (Not Detect.) CSF VZV (PCR) (Not Detect.) Respiratory Panel Gregorio Adenovirus (Rapid PCR) (Not Detect.) B.pert (TEM-PCR) (Not Detect.) B.parapertussis DNA PCR (Not Detect.) C. pneumoniae DNA (PCR) (Not Detect.) Coronavirus OC43 (PCR) (Not Detect.) Coronavirus HKU1 (PCR) (Not Detect.) Coronavirus 229E (PCR) (Not Detect.) Coronavirus NL63 (PCR) (Not Detect.) Human Metapneumovir PCR (Not Detect.) Influenza A (RT-PCR) (Not Detect.) Influenza A (H1) PCR (Not Detect.) Influ A (H1/09) PCR (Not Detect.) Influenza A (H3) PCR (Not Detect.) Influenza B (RT-PCR) (Not Detect.) M. pneumoniae (PCR) (Not Detect.) Parainfluenza 1 (PCR) (Not Detect.) Parainfluenza 2 (PCR) (Not Detect.) Parainfluenza 3 (PCR) (Not Detect.) Parainfluenza 4 (PCR) (Not Detect.) RSV (PCR) (Not Detect.) Entero/Rhino (PCR) (Not Detect.) SARS-CoV-2 RNA (RT-PCR) (Not Detect.) 07/11/25 07/11/25 Range/Units 13:30 13:30 WBC (4.8-10.8) X10*3/uL RBC (4.60-5.80) X10*6/uL Hgb (14.0-18.0) g/dl Hct (42.0-52.0) % MCV (80.0-98.0) fL MCH (27.0-33.0) pg MCHC (31.0-36.0) g/dl RDW (11.0-16.0) % Plt Count (160-400) X10*3/uL MPV (9.4-12.4) fL Immature Gran % (Auto) (0.0-0.4) % Neut % (Auto) (45-73) % Lymph % (Auto) (20-40) % Catron % (Auto) (2-11) % Eos % (Auto) (0-4) % Baso % (Auto) (0-2) % Lymph # (Auto) (1.2-4.9) X10*3/uL Catron # (Auto) (0.1-1.2) X10*3/uL Eos # (Auto) (0.0-0.4) X10*3/uL Baso # (Auto) (0.0-0.2) X10*3/uL Abs Immat Gran (auto) (0.00-0.03) X10*3/uL Absolute Neuts (auto) (2.0-8.3) x10*3/uL Absolute Nucleated RBC (0.0-0.012) X10*3/uL Nucleated RBC % (auto) (0.0-0.2) /100WBC ESR (0-15) MM/HR Sodium (135-145) mmol/L Potassium (3.3-5.1) mmol/L Chloride (96-108) mmol/L Carbon Dioxide (22-29) mmol/L Anion Gap (12-20) BUN (9-16) mg/dL Creatinine (0.5-1.4) mg/dL Estim Creat Clear Calc Estimated GFR Random Glucose (60-115) mg/dL Lactic Acid (0.5-2.0) mmol/L Calcium (8.4-10.2) mg/dL Total Bilirubin (0.0-1.0) mg/dL AST (5-37) U/L ALT (0-40) U/L Alkaline Phosphatase (39-117) U/L C-Reactive Protein (< or = 0.50) mg/dL Total Protein (6.5-8.0) g/dL Albumin (3.5-5.0) g/dL CSF Tube Number CSF Volume ML CSF Appearance CSF Color CSF WBC MM*3 CSF RBC MM*3 CSF Neutrophils % CSF Lymphocytes % CSF Monocytes % 4 % CSF Other Cells % 12 3 % CSF Appearance (b) Clear, Colorless CSF Glucose 53 mg/dL CSF Total Protein 111.8 H (15-45) mg/dL CSF C.neoform/gat PCR Not Detected (Not Detect.) CSF CMV DNA (PCR) Not Detected (Not Detect.) CSF Enterovirus (PCR) Not Detected (Not Detect.) CSF E. coli K1 (PCR) Not Detected (Not Detect.) CSF H. influenzae (PCR) Not Detected (Not Detect.) CSF HSV I (PCR) Not Detected (Not Detect.) CSF HSV II (PCR) Not Detected (Not Detect.) CSF HHV 6 (PCR) Not Detected (Not Detect.) CSF L.monocytogenes PCR Not Detected (Not Detect.) CSF N. meningitidis PCR Not Detected (Not Detect.) CSF Parechovirus (PCR) Not Detected (Not Detect.) CSF S. agalactiae (PCR) Not Detected (Not Detect.) CSF S. pneumoniae (PCR) Not Detected (Not Detect.) CSF VZV (PCR) Detected A* (Not Detect.) Respiratory Panel Gregorio Adenovirus (Rapid PCR) (Not Detect.) B.pert (TEM-PCR) (Not Detect.) B.parapertussis DNA PCR (Not Detect.) C. pneumoniae DNA (PCR) (Not Detect.) Coronavirus OC43 (PCR) (Not Detect.) Coronavirus HKU1 (PCR) (Not Detect.) Coronavirus 229E (PCR) (Not Detect.) Coronavirus NL63 (PCR) (Not Detect.) Human Metapneumovir PCR (Not Detect.) Influenza A (RT-PCR) (Not Detect.) Influenza A (H1) PCR (Not Detect.) Influ A (H1/09) PCR (Not Detect.) Influenza A (H3) PCR (Not Detect.) Influenza B (RT-PCR) (Not Detect.) M. pneumoniae (PCR) (Not Detect.) Parainfluenza 1 (PCR) (Not Detect.) Parainfluenza 2 (PCR) (Not Detect.) Parainfluenza 3 (PCR) (Not Detect.) Parainfluenza 4 (PCR) (Not Detect.) RSV (PCR) (Not Detect.) Entero/Rhino (PCR) (Not Detect.) SARS-CoV-2 RNA (RT-PCR) (Not Detect.) Independent Interpretation I performed an independent interpretation of an: Plain X-Ray and CT Scan Interpretation: My interpretation is in agreement with the radiologist's impression of these imaging studies. L Report Number: [id number]: Total DLP = 813.00 mGy-cm Reason for Exam: headache EXAMINATION: CT HEAD WITHOUT CONTRAST CLINICAL INFORMATION: headache COMPARISON: None available. TECHNIQUE: Contiguous axial imaging was performed from the skull base to vertex without intravenous administration of contrast. This CT examination was performed using dose optimization techniques as appropriate, variously including the following: *Automated exposure control *Adjustment of mA and/or kV according to patient size (this includes techniques or standardized protocols for targeted exams where dose is matched to indication/reason for exam; i.e. extremities or head) *Use of iterative reconstruction technique DLP: 813 mGy-cm FINDINGS: Beam hardening artifact secondary to metallic cochlear implants/devices, bilaterally. No gross acute intracranial hemorrhage, mass effect, midline shift, hydrocephalus or herniation. Posterior cranial fossa contents demonstrated no gross hemorrhage or mass effect. Normal position of the cerebellar tonsils. Sellar/suprasellar region demonstrated no gross masses. Cochlear implant side the base of the cochlea, bilaterally. Polypoid mucosal thickening, middle turbinates. Small retention cyst, maxillary sinuses and ethmoid air cells. No gross masses or fluid collections in the intraconal or extraconal compartments of the orbits. The eyeballs are intact. CT/CT head/brain wo IV con IMPRESSION: No acute intracranial hemorrhage or acute brain abnormality by CT. Chronic paranasal sinus disease. Electronically signed by: Julian Valerio MD 07/11/2025 12:42 PM EDT RP Dictated By: Julian Ortiz MD Signed By: Electronically signed by Julian Adhikari MD 07/11/25 1242 Reason for Exam: illness, fever EXAMINATION: XR CHEST CLINICAL INFORMATION: illness, fever COMPARISON: Chest radiograph on February 06, 2025 TECHNIQUE: AP view of the chest was obtained. FINDINGS: Lungs: Low lung volumes. No focal consolidation. No evidence of pulmonary edema. Pleura: Chronic blunting of the left costophrenic angle could be due to focal pleural thickening or trace pleural effusion. No pneumothorax. Heart/Mediastinum: Cardiomediastinal silhouette is within normal limits. Bones: No acute findings. XR/XR chest 1V IMPRESSION: Low lung volumes. No acute cardiopulmonary process. Electronically signed by: Wililam Garcia MD 07/11/2025 10:29 AM EDT RP Dictated By: William Garcia MD Signed By: Electronically signed by William Garcia MD 07/11/25 1029 Radiology Impression Discussion of test interpretation with radiology: I have reviewed the radiologist's reading. Critical Care Time Critical Care Time Critical Care Time: Yes Total Critical Care Time: 66 Attestation: I spent 66 minutes of Critical Care Time with this patient. This does not include time spent on separately reported billable procedures. __ Eric Novoa MD: ED Critical Care: Authorized and Performed by: Eric Novoa MD Total critical care time: Approximately 66 min Due to a high probability of clinically significant, life threatening deterioration, the patient required my highest level of preparedness to intervene emergently and I personally spent this critical care time directly and personally managing the patient. This critical care time included obtaining a history; examining the patient; pulse oximetry; ordering and review of studies; arranging urgent treatment with development of a management plan; evaluation of patient's response to treatment; frequent reassessment; and, discussions with other providers. This critical care time was performed to assess and manage the high probability of imminent, life-threatening deterioration that could result in multi-organ failure. It was exclusive of separately billable procedures and treating other patients and teaching time. Discharge Plan Discharge Clinical Impression: Meningitis Patient Disposition: Admitted As Inpatient Interventions: Admission Worksheet (ED) Last Done: 07/11/25 14:47 Discharge Date/Time: 07/11/25 15:32
[2025-07-11 10:11] LABS: MANUAL DIFF FLAG NO
[2025-07-11 10:22] LABS: Hematocrit 42.8 % (42.0-52.0); Hemoglobin 14.4 g/dl (14.0-18.0); Imm Gran Abs Auto 0.03 X10*3/uL (0.00-0.03); Imm Gran Pct Auto 0.3 % (0.0-0.4); Lymphocytes Absolute Auto 1.5 X10*3/uL (1.2-4.9); Mean Corpuscular HGB Conc 33.6 g/dl (31.0-36.0); Mean Corpuscular Hemoglobin 30.2 pg (27.0-33.0); Mean Corpuscular Volume 89.7 fL (80.0-98.0); NRBC Abs Auto 0.000 X10*3/uL (0.0-0.012); NRBC Pct Auto 0.0 /100WBC (0.0-0.2); Platelet Count 184 X10*3/uL (160-400); Red Blood Count 4.77 X10*6/uL (4.60-5.80); White Blood Count 11.7 X10*3/uL (4.8-10.8)
[2025-07-11 10:37] LABS: Alanine Aminotransferase 25 U/L (0-40); Albumin Level 4.9 g/dL (3.5-5.0); Alkaline Phosphatase 44 U/L (39-117); Anion Gap 12 (12-20); Aspartate Amino Transferase 22 U/L (5-37); Blood Urea Nitrogen 23 mg/dL (9-16); Calcium 9.5 mg/dL (8.4-10.2); Carbon Dioxide 24 mmol/L (22-29); Chloride 106 mmol/L (96-108); Creatinine Clr Calc Pharmacy 69.8; Estimated Glomerular Filt Rate 45; Potassium 4.2 mmol/L (3.3-5.1); Sodium 138 mmol/L (135-145); Total Protein 8.1 g/dL (6.5-8.0)
[2025-07-11 10:38] VITALS: BP 123/78; PULSE 99; RESP 16; TEMP 36.9; O2SAT 97
--- NOTE | 2025-07-11 10:38 | PC.NURSE ---
This RN notified of pt being placed in room and requiring airborne precautions d/t r/o meningitis. Pt reporting he has had shingles before (on his face the last time) reporting he has not felt good for some time now reporting intermit fevers no specific time of day. Pt reporting neck pain with movement, pt reporting YUEN at this time 06/21, denies vision changes. Pt reports that he has been nauseated for a few days, pt reporting vomiting after attempting to eat dinner last night. IV placed at this time in R FA, Meds given per NOV, toradol held d/t pt kidney history and function and CARLENE Pretty made aware. Per CARLENE Pretty, even though fluids/antibiotics were ordered as sepsis orders she is not calling a sepsis alert at this time, RN documenting encounter at this time. Awaiting lab results and imaging. Pt has left kochlear implant on, reporting he does have the surgery bilat but is not wearing one in his right ear.
[2025-07-11] MEDS: Lidocaine HCl 1 % MPF 5 ML VIAL 10 ML SUBCUT (11:42)
--- OUTSIDE RECORDS SUMMARY | 2025-07-11 11:53 | XMS_ITS | Clinical Summary ---
Author Organization [address] Address [address] [place], [place] Phone Care Team Providers Care Reading Interventionist Name Role Phone Teodora Lisa MD Primary Care Provider [phone] Allergies Active Allergy Reactions Criticality Noted Date [...] Bilateral hearing aides s/p Cochlear Implant at [facility] [address] Melendez Hypertension 02/27/2016 Encounters Date Type Department Care Team Description 06/12/2025 Telephone Adult Medicine [address] [address] Fernando Pulido [place] from Last 3 Months Immunizations Immunization Administration Dates Next Due DTaP (Infanrix) 6wks to less than 7yo ,07/02/1996,09/23/1995,06/21,02/04/1995 [id number] (Pentacel) 2mo to less than 5yo 07/02/1996,09/23/1995,06/21/1995,02/04 [...] COMMENT: and adrenalectomy OTHER SURGICAL HISTORY PROCEDURE: MA INCISION & DRAINAGE PILONIDAL CYST SIMPLE Medical [...] healthy, no meds Mother live s in [place] Other: deaf Sister Relation Name Status Comments [...] 9:00 AM EST Office [place] [facility] [address] [place] [address] Teodora Lisa MD [address] [place] [address] Health Maintenance Due Date Last Done Comments [...] * Annual BMP Blood Test (02/23/2024) Pathologist [facility] Annual BMP Blood Test abstracted [facility] Provider HEALTH MAINTENANCE Final Result * Depression Screening (02/23/2024) Pathologist [facility] Depression Screening abstracted [facility] Provider HEALTH MAINTENANCE Final Result * (ABNORMAL) Lipid panel (02/23/2024) [facility] LDL/HDL Ratio 5(A) 0 - 4 Triglycerides 189(A) 0 - 150 mg/dL Cholesterol 152 0 - 200 mg/dL HDL 30(A) >=40 mg/dL LDL Cholesterol 85 0 - 100 mg/dL Blood Venous blood specimen / Unknown [facility] Provider LAB BLOOD ORDERABLES Tereza l Result from Last 3 Months or Most Recently Relevant to Health Maintenance Insurance [address] [place] [address] [facility] Care Teams Reading Interventionist Relationship Specialty Start Date End Date Teodora Lisa MD [address] [place] [address] PCP - General Internal Medicine 12/04/15
--- NOTE | 2025-07-11 13:36 | PC.NURSE ---
This RN was given the spinal fluid at this time from the pt. This RN physically handed lab bag to phlebotomy at this time
[2025-07-11 14:00] VITALS: BP 107/55; PULSE 89; RESP 16; TEMP 36.9; O2SAT 99
--- NOTE | 2025-07-11 14:18 | PHA.MEDREC ---
Addendum entered by Berenice Martins RPh 07/11/25 14:19: reviewed by yong Original Note: Pharmacy Consult ? Medication Reconciliation Pharmacy has completed the medication reconciliation. Spoke with pt and he confirmed his medications.
[2025-07-11 14:28] LABS: Chlamydia pneumoniae PCR Not Detected (Not Detect.); Coronavirus 229E PCR Not Detected (Not Detect.); Coronavirus HKU1 PCR Not Detected (Not Detect.); Coronavirus NL63 PCR Not Detected (Not Detect.); Coronavirus OC43 PCR Not Detected (Not Detect.); RSV PCR Not Detected (Not Detect.); Rhino/Enterovirus PCR Not Detected (Not Detect.)
--- NOTE | 2025-07-11 14:41 | PC.NURSE ---
Pt here today w/ c/o R side facial leasions, n&v, and h/a w/ increasing pain when touch hin to chest. 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 Pt is currently being worked up as viral menigitis. LP complete but no results as of the time of this note. Pt is very photophobic w/ this h/a. Pt is otherwise independent w/ ADL's
[2025-07-11 14:48] LABS: Influenza A H1 PCR Not Detected (Not Detect.); Influenza A H1-2009 PCR Not Detected (Not Detect.); Influenza A H3 PCR Not Detected (Not Detect.); SARS-CoV-2 PCR Not Detected (Not Detect.)
[2025-07-11 14:55] LABS: CSF Other Cells % 3 %; Lymphocytes CSF 90 %; Neutrophils CSF 3 %; Red Blood Cell CSF 955 MM*3
[2025-07-11 15:02] LABS: Red Blood Cell CSF 46 MM*3; White Blood Cell CSF 465 MM*3
[2025-07-11 15:03] LABS: White Blood Cell CSF 590 MM*3
[2025-07-11 15:17] VITALS: BMI 35.6
[2025-07-11 15:26] LABS: CSF Other Cells % 12 %; Lymphocytes CSF 82 %; Neutrophils CSF 1 %
[2025-07-11] MEDS: 0.9 % Sodium Chloride Flush 3 ML SYRINGE IVFLUSH ×2 (15:41→19:29)
[2025-07-11 15:45] VITALS: BP 125/59; PULSE 98; RESP 12; TEMP 36.2; O2SAT 93
[2025-07-11] MEDS: Linezolid/D5W 600 MG/300 ML PIGGYBACK 300 MG IV (16:09)
[2025-07-11] MEDS: oxyCODONE HCl Immed Release 5 MG TABLET 10 MG PO ×2 (16:48→23:47)
--- NOTE | 2025-07-11 17:45 | P.HPHOSP_ITS ---
History of Present Illness Date of Service: 07/11/25 Chief Complaint: neck pain 34 year old assigned male at with a history of HTN, shingles, and deafness with bilateral cochlear, 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 Patient states that over the last day he has felt generally unwell with nausea, vomiting, a rash to the right side of his neck, and significant head and neck pain. Patient states that when he bends his head down and touches his chin to his chest he has excruciating pain that radiates down his spine. Patient denies any other complaints at this time. Review of Systems 2 Review of Systems: Denies chest pain No shortness of breath Denies nausea vomiting diarrhea Denies fever chills PMFSH Medical History (Updated 07/11/25 @ 17:48 by Denis Logan DO) HTN (hypertension) Social History Household Members: Spouse Housing: Apartment Patient Tobacco Use Status: Never used Tobacco Currently Displaying Signs/Symptoms of Drug Intoxication Withdrawal: No Advance Directives: No Advance Directives Information Provided: No Meds Allergies Allergy/AdvReac Type Severity Reaction Status Date / Time nut - unspecified Allergy Anaphylaxis Verified 07/11/25 09:35 shellfish derived Allergy Anaphylaxis Verified 07/11/25 09:35 Active Medications: Current Medications Acetaminophen (Acetaminophen 325 Mg Tablet) 650 mg PO Q6H PRN PRN Reason: Pain, Mild 1-3,fever,headache Calcium Carbonate (Calcium Carbonate 750 Mg Tab.Chew) 750 mg PO Q4H PRN PRN Reason: Heartburn Enoxaparin Sodium (Enoxaparin Sodium 40 Mg/0.4 Ml Syringe) 40 mg SUBCUT Q24H CARINA Last Admin: 07/11/25 15:40 Dose: 40 mg Ceftriaxone Sodium 2 gm/ (Sodium Chloride) 50 mls @ 100 mls/hr IV Q24H CARINA Linezolid (Zyvox/D5w) 600 mg in 300 mls @ 300 mls/hr IV Q12H CARINA Last Infusion: 07/11/25 17:14 Dose: Infused Acyclovir Sodium 700 mg/ (Sodium Chloride) 264 mls @ 264 mls/hr IV Q12H CARINA Magnesium Hydroxide (Milk Of Magnesia 30 Ml Oral.Susp) 30 ml PO DAILY PRN PRN Reason: Constipation Melatonin (Melatonin 3 Mg Tablet) 6 mg PO BEDTIME PRN PRN Reason: Insomnia Morphine Sulfate (Morphine Sulfate 10 Mg/Ml Cartridge) 4 mg IVPUSH Q3H PRN; Protocol PRN Reason: Pain, Severe (Pain Scale 7-10) Last Admin: 07/11/25 15:41 Dose: 4 mg Ondansetron HCl (Ondansetron Hcl 4 Mg/2 Ml Vial) 4 mg IVPUSH Q8H PRN PRN Reason: Nausea and Vomiting Oxycodone HCl (Oxycodone Hcl Immed Release 5 Mg Tablet) 10 mg PO Q4H PRN PRN Reason: Pain, Moderate(Pain Scale 4-6) Last Admin: 07/11/25 16:48 Dose: 10 mg Sodium Chloride (0.9 % Sodium Chloride Flush 3 Ml Syringe) 3 ml IVFLUSH QSHIFT [facility] Last Admin: 07/11/25 15:41 Dose: 3 ml Home Medications ?Medication ?Instructions ?Recorded ?Confirmed ?Last Taken ?Type cetirizine 10 mg tablet 10 mg PO DAILY PRN Allergy S ymptoms 07/11/25 07/11/25 Unknown History Physical Exam 2 Vital Signs and Narrative: Vital Signs: Last Vital Signs Temp 97.1 F 07/11/25 15:45 Pulse 98 07/11/25 15:45 Resp 12 07/11/25 15:45 BP 125/59 L 07/11/25 15:45 Pulse Ox 93 07/11/25 15:45 O2 Del Method Room Air 07/11/25 15:45 BMI result Body Mass Index 35.6 Const: Other: Awake alert uncomfortable appearing Neck: Other: Raised erythematous papules right lateral neck; pain with minimal range of motion to neck. Positive nuchal rigidity Resp: Other: Clear to auscultation bilaterally no rales rhonchi or wheezes Cardio: Other: No S4; positive S1-S2; no S3 murmurs rubs or gallops GI: Other: Soft nontender nondistended normoactive bowel sounds Extrem: Other: No edema Results Labs 07/11/25 10:01 07/11/25 10:01 Labs: Laboratory Results - last 24 hr 07/11/25 07/11/25 07/11/25 10:01 11:41 13:30 MCV 89.7 MCH 30.2 MCHC 33.6 RDW 11.3 Plt Count 184 MPV 11.6 Immature Gran % (Auto) 0.3 Neut % (Auto) 76.3 H Lymph % (Auto) 12.6 L [place] % (Auto) 8.6 Eos % (Auto) 1.9 Baso % (Auto) 0.3 Lymph # (Auto) 1.5 [place] # (Auto) 1.0 Eos # (Auto) 0.2 Baso # (Auto) 0.0 Abs Immat Gran (auto) 0.03 Absolute Neuts (auto) 8.9 H Absolute Nucleated RBC 0.000 Nucleated RBC % (auto) 0.0 ESR 20 H Anion Gap 12 Estim Creat Clear Calc 69.8 Estimated GFR 45 Random Glucose 108 Lactic Acid 1.2 Calcium 9.5 Total Bilirubin 1.2 H AST 22 ALT 25 Alkaline Phosphatase 44 C-Reactive Protein 0.28 Total Protein 8.1 H Albumin 4.9 CSF Tube Number 2 CSF Volume CSF Appearance CSF Color CSF WBC CSF RBC CSF Neutrophils CSF Lymphocytes CSF Monocytes % CSF Other Cells % CSF Appearance (b) CSF Glucose CSF Total Protein CSF C.neoform/gat PCR CSF CMV DNA (PCR) CSF Enterovirus (PCR) CSF E. coli K1 (PCR) CSF H. influenzae (PCR) CSF HSV I (PCR) CSF HSV II (PCR) CSF HHV 6 (PCR) CSF L.monocytogenes PCR CSF N. meningitidis PCR CSF Parechovirus (PCR) CSF S. agalactiae (PCR) CSF S. pneumoniae (PCR) CSF VZV (PCR) Respiratory Panel Gregorio See Note Adenovirus (Rapid PCR) Not Detected B.pert (TEM-PCR) Not Detected B.parapertussis DNA PCR Not Detected C. pneumoniae DNA (PCR) Not Detected Coronavirus OC43 (PCR) Not Detected Coronavirus HKU1 (PCR) Not Detected Coronavirus 229E (PCR) Not Detected Coronavirus NL63 (PCR) Not Detected Human Metapneumovir PCR Not Detected Influenza A (RT-PCR) Not Detected Influenza A (H1) PCR Not Detected Influ A (H1/09) PCR Not Detected Influenza A (H3) PCR Not Detected Influenza B (RT-PCR) Not Detected M. pneumoniae (PCR) Not Detected Parainfluenza 1 (PCR) Not Detected Parainfluenza 2 (PCR) Not Detected Parainfluenza 3 (PCR) Not Detected Parainfluenza 4 (PCR) Not Detected RSV (PCR) Not Detected Entero/Rhino (PCR) Not Detected SARS-CoV-2 RNA (RT-PCR) Not Detected 07/11/25 07/11/25 07/11/25 13:30 13:30 13:30 MCV MCH MCHC RDW Plt Count MPV Immature Gran % (Auto) Neut % (Auto) Lymph % (Auto) [place] % (Auto) Eos % (Auto) Baso % (Auto) Lymph # (Auto) [place] # (Auto) Eos # (Auto) Baso # (Auto) Abs Immat Gran (auto) Absolute Neuts (auto) Absolute Nucleated RBC Nucleated RBC % (auto) ESR Anion Gap Estim Creat Clear Calc Estimated GFR Random Glucose Lactic Acid Calcium Total Bilirubin AST ALT Alkaline Phosphatase C-Reactive Protein Total Protein Albumin CSF Tube Number 4 1 CSF Volume 1.0 1.0 CSF Appearance CLEAR CSF Color CSF WBC CSF RBC CSF Neutrophils CSF Lymphocytes CSF Monocytes % CSF Other Cells % CSF Appearance (b) CSF Glucose CSF Total Protein CSF C.neoform/gat PCR CSF CMV DNA (PCR) CSF Enterovirus (PCR) CSF E. coli K1 (PCR) CSF H. influenzae (PCR) CSF HSV I (PCR) CSF HSV II (PCR) CSF HHV 6 (PCR) CSF L.monocytogenes PCR CSF N. meningitidis PCR CSF Parechovirus (PCR) CSF S. agalactiae (PCR) CSF S. pneumoniae (PCR) CSF VZV (PCR) Respiratory Panel Gregorio Adenovirus (Rapid PCR) B.pert (TEM-PCR) B.parapertussis DNA PCR C. pneumoniae DNA (PCR) Coronavirus OC43 (PCR) Coronavirus HKU1 (PCR) Coronavirus 229E (PCR) Coronavirus NL63 (PCR) Human Metapneumovir PCR Influenza A (RT-PCR) Influenza A (H1) PCR Influ A (H1/09) PCR Influenza A (H3) PCR Influenza B (RT-PCR) M. pneumoniae (PCR) Parainfluenza 1 (PCR) Parainfluenza 2 (PCR) Parainfluenza 3 (PCR) Parainfluenza 4 (PCR) RSV (PCR) Entero/Rhino (PCR) SARS-CoV-2 RNA (RT-PCR) 07/11/25 07/11/25 07/11/25 13:30 13:30 13:30 MCV MCH MCHC RDW Plt Count MPV Immature Gran % (Auto) Neut % (Auto) Lymph % (Auto) [place] % (Auto) Eos % (Auto) Baso % (Auto) Lymph # (Auto) [place] # (Auto) Eos # (Auto) Baso # (Auto) Abs Immat Gran (auto) Absolute Neuts (auto) Absolute Nucleated RBC Nucleated RBC % (auto) ESR Anion Gap Estim Creat Clear Calc Estimated GFR Random Glucose Lactic Acid Calcium Total Bilirubin AST ALT Alkaline Phosphatase C-Reactive Protein Total Protein Albumin CSF Tube Number CSF Volume CSF Appearance HAZY CSF Color COLORLESS COLORLESS CSF WBC 465 H* 590 H* CSF RBC 46 CSF Neutrophils CSF Lymphocytes CSF Monocytes % CSF Other Cells % CSF Appearance (b) CSF Glucose CSF Total Protein CSF C.neoform/gat PCR CSF CMV DNA (PCR) CSF Enterovirus (PCR) CSF E. coli K1 (PCR) CSF H. influenzae (PCR) CSF HSV I (PCR) CSF HSV II (PCR) CSF HHV 6 (PCR) CSF L.monocytogenes PCR CSF N. meningitidis PCR CSF Parechovirus (PCR) CSF S. agalactiae (PCR) CSF S. pneumoniae (PCR) CSF VZV (PCR) Respiratory Panel Gregorio Adenovirus (Rapid PCR) B.pert (TEM-PCR) B.parapertussis DNA PCR C. pneumoniae DNA (PCR) Coronavirus OC43 (PCR) Coronavirus HKU1 (PCR) Coronavirus 229E (PCR) Coronavirus NL63 (PCR) Human Metapneumovir PCR Influenza A (RT-PCR) Influenza A (H1) PCR Influ A (H1/09) PCR Influenza A (H3) PCR Influenza B (RT-PCR) M. pneumoniae (PCR) Parainfluenza 1 (PCR) Parainfluenza 2 (PCR) Parainfluenza 3 (PCR) Parainfluenza 4 (PCR) RSV (PCR) Entero/Rhino (PCR) SARS-CoV-2 RNA (RT-PCR) 07/11/25 07/11/25 07/11/25 13:30 13:30 13:30 MCV MCH MCHC RDW Plt Count MPV Immature Gran % (Auto) Neut % (Auto) Lymph % (Auto) [place] % (Auto) Eos % (Auto) Baso % (Auto) Lymph # (Auto) [place] # (Auto) Eos # (Auto) Baso # (Auto) Abs Immat Gran (auto) Absolute Neuts (auto) Absolute Nucleated RBC Nucleated RBC % (auto) ESR Anion Gap Estim Creat Clear Calc Estimated GFR Random Glucose Lactic Acid Calcium Total Bilirubin AST ALT Alkaline Phosphatase C-Reactive Protein Total Protein Albumin CSF Tube Number CSF Volume CSF Appearance CSF Color CSF WBC CSF RBC 955 CSF Neutrophils 1 3 CSF Lymphocytes 82 90 CSF Monocytes % 5 CSF Other Cells % CSF Appearance (b) CSF Glucose CSF Total Protein CSF C.neoform/gat PCR CSF CMV DNA (PCR) CSF Enterovirus (PCR) CSF E. coli K1 (PCR) CSF H. influenzae (PCR) CSF HSV I (PCR) CSF HSV II (PCR) CSF HHV 6 (PCR) CSF L.monocytogenes PCR CSF N. meningitidis PCR CSF Parechovirus (PCR) CSF S. agalactiae (PCR) CSF S. pneumoniae (PCR) CSF VZV (PCR) Respiratory Panel Gregorio Adenovirus (Rapid PCR) B.pert (TEM-PCR) B.parapertussis DNA PCR C. pneumoniae DNA (PCR) Coronavirus OC43 (PCR) Coronavirus HKU1 (PCR) Coronavirus 229E (PCR) Coronavirus NL63 (PCR) Human Metapneumovir PCR Influenza A (RT-PCR) Influenza A (H1) PCR Influ A (H1/09) PCR Influenza A (H3) PCR Influenza B (RT-PCR) M. pneumoniae (PCR) Parainfluenza 1 (PCR) Parainfluenza 2 (PCR) Parainfluenza 3 (PCR) Parainfluenza 4 (PCR) RSV (PCR) Entero/Rhino (PCR) SARS-CoV-2 RNA (RT-PCR) 07/11/25 07/11/25 13:30 13:30 MCV MCH MCHC RDW Plt Count MPV Immature Gran % (Auto) Neut % (Auto) Lymph % (Auto) [place] % (Auto) Eos % (Auto) Baso % (Auto) Lymph # (Auto) [place] # (Auto) Eos # (Auto) Baso # (Auto) Abs Immat Gran (auto) Absolute Neuts (auto) Absolute Nucleated RBC Nucleated RBC % (auto) ESR Anion Gap Estim Creat Clear Calc Estimated GFR Random Glucose Lactic Acid Calcium Total Bilirubin AST ALT Alkaline Phosphatase C-Reactive Protein Total Protein Albumin CSF Tube Number CSF Volume CSF Appearance CSF Color CSF WBC CSF RBC CSF Neutrophils CSF Lymphocytes CSF Monocytes % 4 CSF Other Cells % 12 3 CSF Appearance (b) Clear, Colorless CSF Glucose 53 CSF Total Protein 111.8 H CSF C.neoform/gat PCR Not Detected CSF CMV DNA (PCR) Not Detected CSF Enterovirus (PCR) Not Detected CSF E. coli K1 (PCR) Not Detected CSF H. influenzae (PCR) Not Detected CSF HSV I (PCR) Not Detected CSF HSV II (PCR) Not Detected CSF HHV 6 (PCR) Not Detected CSF L.monocytogenes PCR Not Detected CSF N. meningitidis PCR Not Detected CSF Parechovirus (PCR) Not Detected CSF S. agalactiae (PCR) Not Detected CSF S. pneumoniae (PCR) Not Detected CSF VZV (PCR) Detected A* Respiratory Panel Gregorio Adenovirus (Rapid PCR) B.pert (TEM-PCR) B.parapertussis DNA PCR C. pneumoniae DNA (PCR) Coronavirus OC43 (PCR) Coronavirus HKU1 (PCR) Coronavirus 229E (PCR) Coronavirus NL63 (PCR) Human Metapneumovir PCR Influenza A (RT-PCR) Influenza A (H1) PCR Influ A (H1/09) PCR Influenza A (H3) PCR Influenza B (RT-PCR) M. pneumoniae (PCR) Parainfluenza 1 (PCR) Parainfluenza 2 (PCR) Parainfluenza 3 (PCR) Parainfluenza 4 (PCR) RSV (PCR) Entero/Rhino (PCR) SARS-CoV-2 RNA (RT-PCR) Imaging Radiologist's Impressions: Impressions Chest X-Ray 07/11/25 10:20 IMPRESSION: Low lung volumes. No acute cardiopulmonary process. Electronically signed by: William Garcia MD 07/11/2025 10:29 AM EDT RP Head CT 07/11/25 12:23 IMPRESSION: No acute intracranial hemorrhage or acute brain abnormality by CT. Chronic paranasal sinus disease. Electronically signed by: Julian Valerio MD 07/11/2025 12:42 PM EDT RP Assessment and Plan (1) Varicella zoster meningitis: Status: Acute (2) HTN (hypertension): Qualifiers: Hypertension type: primary hypertension Qualified Code(s): I10 - Essential (primary) hypertension Status: Acute Plan 34-year-old male with history of hypertension recurrent shingles and deafness with bilateral cochlear implants status post nephrectomy secondary to renal cancer presents with recurrent shingles to right neck. Neck painful with limited range of motion. Underwent lumbar puncture. .. CSF consistent with varicella virus 1.VSV menningitis (all meds reviewed with pharmacy and dosed appropriately for renal function) -linezolid 600 mg IV b.i.d./ceftriaxone 1 g/acyclovir 700 mg q.12 -morphine/oxycodone for pain -ID consult in a.m. -contact precautions (shingles 1 dermatome) 2. Hypertension -acceptable control on current therapy -adjust as indicated Full code Lovenox Patient will require at least 2 midnights going forward of inpatient stay to treat varicella zoster meningitis with IV antibiotics and specialty consultation. This can not be achieved a lesser acute setting Quality Stroke Does the patient have a stroke diagnosis?: No VTE Prior VTE?: No VTE Risk Level:: Medical - moderate - high VTE Device Contraindication: Treatment Not Indicated VTE Drug Contraindication: N/A - Med Ordered
[2025-07-11 20:00] VITALS: BP 132/61; PULSE 96; RESP 18; TEMP 36.4; O2SAT 94
--- NOTE | 2025-07-11 23:02 | PM.EVENT ---
Event Note Date of Service: 07/11/25 Event Note: Nursing reported to this remote mortgage underwriter that there is no code status placed. Full code status updated. Time Spent With Patient Time: Total time managing care of this patient today ____ minutes.
[2025-07-12] MEDS: Linezolid/D5W 600 MG/300 ML PIGGYBACK 300 MG IV (03:20)
[2025-07-12 04:00] VITALS: BP 115/62; PULSE 80; RESP 17; TEMP 36.2; O2SAT 93
[2025-07-12 06:25] LABS: MANUAL DIFF FLAG NO
[2025-07-12 06:41] LABS: Hematocrit 37.4 % (42.0-52.0); Hemoglobin 12.3 g/dl (14.0-18.0); Imm Gran Abs Auto 0.09 X10*3/uL (0.00-0.03); Imm Gran Pct Auto 0.5 % (0.0-0.4); Lymphocytes Absolute Auto 1.8 X10*3/uL (1.2-4.9); Mean Corpuscular HGB Conc 32.9 g/dl (31.0-36.0); Mean Corpuscular Hemoglobin 29.9 pg (27.0-33.0); Mean Corpuscular Volume 90.8 fL (80.0-98.0); NRBC Abs Auto 0.000 X10*3/uL (0.0-0.012); NRBC Pct Auto 0.0 /100WBC (0.0-0.2); Platelet Count 186 X10*3/uL (160-400); Red Blood Count 4.12 X10*6/uL (4.60-5.80); White Blood Count 19.2 X10*3/uL (4.8-10.8)
[2025-07-12 06:53] LABS: Alanine Aminotransferase 20 U/L (0-40); Albumin Level 4.2 g/dL (3.5-5.0); Alkaline Phosphatase 39 U/L (39-117); Anion Gap 13 (12-20); Aspartate Amino Transferase 16 U/L (5-37); Blood Urea Nitrogen 27 mg/dL (9-16); Calcium 9.0 mg/dL (8.4-10.2); Carbon Dioxide 22 mmol/L (22-29); Chloride 107 mmol/L (96-108); Creatinine Clr Calc Pharmacy 82.8; Estimated Glomerular Filt Rate 52; Potassium 4.4 mmol/L (3.3-5.1); Sodium 138 mmol/L (135-145); Total Protein 7.0 g/dL (6.5-8.0)
[2025-07-12 08:00] VITALS: BP 130/74; PULSE 73; RESP 18; TEMP 36.4; O2SAT 96
[2025-07-12] MEDS: 0.9 % Sodium Chloride Flush 3 ML SYRINGE IVFLUSH ×2 (08:54→20:24)
--- NOTE | 2025-07-12 08:57 | HO.PM.IMPN ---
Subjective Subjective Date of Service: 07/12/25 Interval History: f/u VSV meningitis He feels better but still with YUEN Physical Exam Vital Signs: Vital Signs: Last Vital Signs Temp 97.6 F 07/12/25 08:00 Pulse 73 07/12/25 08:00 Resp 18 07/12/25 08:00 BP 130/74 07/12/25 08:00 Pulse Ox 96 07/12/25 08:00 O2 Del Method Room Air 07/12/25 08:00 BMI result Body Mass Index 35.6 Const: Other: General: AO X 3, no acute distress Resp: CTA bilateral CVS: S1,S2,RRR GI: +BS, NT, no distention Skin: No rash Neuro: motor grossly intact Psych: appropriate affect Objective Data Active Medications Acetaminophen (Acetaminophen 325 Mg Tablet) 650 mg PO Q6H PRN PRN Reason: Pain, Mild 1-3,fever,headache Calcium Carbonate (Calcium Carbonate 750 Mg Tab.Chew) 750 mg PO Q4H PRN PRN Reason: Heartburn Enoxaparin Sodium (Enoxaparin Sodium 40 Mg/0.4 Ml Syringe) 40 mg SUBCUT Q24H [facility] Last Admin: 07/11/25 15:40 Dose: 40 mg Documented By: NAVI Hydrochlorothiazide (Hydrochlorothiazide 12.5 Mg Tablet) 12.5 mg PO DAILY [facility] Last Admin: 07/12/25 08:46 Dose: 12.5 mg Documented By: BONNY Ceftriaxone Sodium 2 gm/ (Sodium Chloride) 50 mls @ 100 mls/hr IV Q24H [facility] Last Admin: 07/12/25 08:45 Dose: 100 mls/hr Documented By: BONNY Linezolid (Zyvox/D5w) 600 mg in 300 mls @ 300 mls/hr IV Q12H [facility] Last Infusion: 07/12/25 04:28 Dose: Infused Documented By: MAYE Acyclovir Sodium 700 mg/ (Sodium Chloride) 264 mls @ 264 mls/hr IV Q12H [facility] Last Infusion: 07/12/25 00:41 Dose: Infused Documented By: MAYE Lisinopril (Lisinopril 10 Mg Tablet) 10 mg PO DAILY [facility] Last Admin: 07/12/25 08:46 Dose: 10 mg Documented By: BONNY Loratadine (Loratadine 10 Mg Tablet) 10 mg PO DAILY PRN PRN Reason: Allergy Symptoms Last Admin: 07/12/25 08:47 Dose: 10 mg Documented By: BONNY Comments: Pt request to take claritin in the am, as at home Magnesium Hydroxide (Milk Of Magnesia 30 Ml Oral.Susp) 30 ml PO DAILY PRN PRN Reason: Constipation Melatonin (Melatonin 3 Mg Tablet) 6 mg PO BEDTIME PRN PRN Reason: Insomnia Morphine Sulfate (Morphine Sulfate 10 Mg/Ml Cartridge) 4 mg IVPUSH Q3H PRN; Protocol PRN Reason: Pain, Severe (Pain Scale 7-10) Last Admin: 07/12/25 08:45 Dose: 4 mg Documented By: BONNY Ondansetron HCl (Ondansetron Hcl 4 Mg/2 Ml Vial) 4 mg IVPUSH Q8H PRN PRN Reason: Nausea and Vomiting Oxycodone HCl (Oxycodone Hcl Immed Release 5 Mg Tablet) 10 mg PO Q4H PRN PRN Reason: Pain, Moderate(Pain Scale 4-6) Last Admin: 07/11/25 23:47 Dose: 10 mg Documented By: MAYE Sodium Chloride (0.9 % Sodium Chloride Flush 3 Ml Syringe) 3 ml IV[facility]SH [facility] Last Admin: 07/12/25 08:54 Dose: 3 ml Documented By: BONNY Labs 07/12/25 06:08 07/12/25 06:08 Labs: Laboratory Results - last 24 hr 07/11/25 07/11/25 07/11/25 10:01 11:41 13:30 MCV 89.7 MCH 30.2 MCHC 33.6 RDW 11.3 Plt Count 184 MPV 11.6 Immature Gran % (Auto) 0.3 Neut % (Auto) 76.3 H Lymph % (Auto) 12.6 L [place] % (Auto) 8.6 Eos % (Auto) 1.9 Baso % (Auto) 0.3 Lymph # (Auto) 1.5 [place] # (Auto) 1.0 Eos # (Auto) 0.2 Baso # (Auto) 0.0 Abs Immat Gran (auto) 0.03 Absolute Neuts (auto) 8.9 H Absolute Nucleated RBC 0.000 Nucleated RBC % (auto) 0.0 ESR 20 H Anion Gap 12 Estim Creat Clear Calc 69.8 Estimated GFR 45 Random Glucose 108 Fasting Glucose Lactic Acid 1.2 Calcium 9.5 Total Bilirubin 1.2 H AST 22 ALT 25 Alkaline Phosphatase 44 C-Reactive Protein 0.28 Total Protein 8.1 H Albumin 4.9 CSF Tube Number 2 CSF Volume CSF Appearance CSF Color CSF WBC CSF RBC CSF Neutrophils CSF Lymphocytes CSF Monocytes % CSF Other Cells % CSF Appearance (b) CSF Glucose CSF Total Protein CSF C.neoform/gat PCR CSF CMV DNA (PCR) CSF Enterovirus (PCR) CSF E. coli K1 (PCR) CSF H. influenzae (PCR) CSF HSV I (PCR) CSF HSV II (PCR) CSF HHV 6 (PCR) CSF L.monocytogenes PCR CSF N. meningitidis PCR CSF Parechovirus (PCR) CSF S. agalactiae (PCR) CSF S. pneumoniae (PCR) CSF VZV (PCR) Respiratory Panel Gregorio See Note Adenovirus (Rapid PCR) Not Detected B.pert (TEM-PCR) Not Detected B.parapertussis DNA PCR Not Detected C. pneumoniae DNA (PCR) Not Detected Coronavirus OC43 (PCR) Not Detected Coronavirus HKU1 (PCR) Not Detected Coronavirus 229E (PCR) Not Detected Coronavirus NL63 (PCR) Not Detected Human Metapneumovir PCR Not Detected Influenza A (RT-PCR) Not Detected Influenza A (H1) PCR Not Detected Influ A (H1/09) PCR Not Detected Influenza A (H3) PCR Not Detected Influenza B (RT-PCR) Not Detected M. pneumoniae (PCR) Not Detected Parainfluenza 1 (PCR) Not Detected Parainfluenza 2 (PCR) Not Detected Parainfluenza 3 (PCR) Not Detected Parainfluenza 4 (PCR) Not Detected RSV (PCR) Not Detected Entero/Rhino (PCR) Not Detected SARS-CoV-2 RNA (RT-PCR) Not Detected 07/11/25 07/11/25 07/11/25 13:30 13:30 13:30 MCV MCH MCHC RDW Plt Count MPV Immature Gran % (Auto) Neut % (Auto) Lymph % (Auto) [place] % (Auto) Eos % (Auto) Baso % (Auto) Lymph # (Auto) [place] # (Auto) Eos # (Auto) Baso # (Auto) Abs Immat Gran (auto) Absolute Neuts (auto) Absolute Nucleated RBC Nucleated RBC % (auto) ESR Anion Gap Estim Creat Clear Calc Estimated GFR Random Glucose Fasting Glucose Lactic Acid Calcium Total Bilirubin AST ALT Alkaline Phosphatase C-Reactive Protein Total Protein Albumin CSF Tube Number 4 1 CSF Volume 1.0 1.0 CSF Appearance CLEAR CSF Color CSF WBC CSF RBC CSF Neutrophils CSF Lymphocytes CSF Monocytes % CSF Other Cells % CSF Appearance (b) CSF Glucose CSF Total Protein CSF C.neoform/gat PCR CSF CMV DNA (PCR) CSF Enterovirus (PCR) CSF E. coli K1 (PCR) CSF H. influenzae (PCR) CSF HSV I (PCR) CSF HSV II (PCR) CSF HHV 6 (PCR) CSF L.monocytogenes PCR CSF N. meningitidis PCR CSF Parechovirus (PCR) CSF S. agalactiae (PCR) CSF S. pneumoniae (PCR) CSF VZV (PCR) Respiratory Panel Gregorio Adenovirus (Rapid PCR) B.pert (TEM-PCR) B.parapertussis DNA PCR C. pneumoniae DNA (PCR) Coronavirus OC43 (PCR) Coronavirus HKU1 (PCR) Coronavirus 229E (PCR) Coronavirus NL63 (PCR) Human Metapneumovir PCR Influenza A (RT-PCR) Influenza A (H1) PCR Influ A (H1/09) PCR Influenza A (H3) PCR Influenza B (RT-PCR) M. pneumoniae (PCR) Parainfluenza 1 (PCR) Parainfluenza 2 (PCR) Parainfluenza 3 (PCR) Parainfluenza 4 (PCR) RSV (PCR) Entero/Rhino (PCR) SARS-CoV-2 RNA (RT-PCR) 07/11/25 07/11/25 07/11/25 13:30 13:30 13:30 MCV MCH MCHC RDW Plt Count MPV Immature Gran % (Auto) Neut % (Auto) Lymph % (Auto) [place] % (Auto) Eos % (Auto) Baso % (Auto) Lymph # (Auto) [place] # (Auto) Eos # (Auto) Baso # (Auto) Abs Immat Gran (auto) Absolute Neuts (auto) Absolute Nucleated RBC Nucleated RBC % (auto) ESR Anion Gap Estim Creat Clear Calc Estimated GFR Random Glucose Fasting Glucose Lactic Acid Calcium Total Bilirubin AST ALT Alkaline Phosphatase C-Reactive Protein Total Protein Albumin CSF Tube Number CSF Volume CSF Appearance HAZY CSF Color COLORLESS COLORLESS CSF WBC 465 H* 590 H* CSF RBC 46 CSF Neutrophils CSF Lymphocytes CSF Monocytes % CSF Other Cells % CSF Appearance (b) CSF Glucose CSF Total Protein CSF C.neoform/gat PCR CSF CMV DNA (PCR) CSF Enterovirus (PCR) CSF E. coli K1 (PCR) CSF H. influenzae (PCR) CSF HSV I (PCR) CSF HSV II (PCR) CSF HHV 6 (PCR) CSF L.monocytogenes PCR CSF N. meningitidis PCR CSF Parechovirus (PCR) CSF S. agalactiae (PCR) CSF S. pneumoniae (PCR) CSF VZV (PCR) Respiratory Panel Gregorio Adenovirus (Rapid PCR) B.pert (TEM-PCR) B.parapertussis DNA PCR C. pneumoniae DNA (PCR) Coronavirus OC43 (PCR) Coronavirus HKU1 (PCR) Coronavirus 229E (PCR) Coronavirus NL63 (PCR) Human Metapneumovir PCR Influenza A (RT-PCR) Influenza A (H1) PCR Influ A (H1/09) PCR Influenza A (H3) PCR Influenza B (RT-PCR) M. pneumoniae (PCR) Parainfluenza 1 (PCR) Parainfluenza 2 (PCR) Parainfluenza 3 (PCR) Parainfluenza 4 (PCR) RSV (PCR) Entero/Rhino (PCR) SARS-CoV-2 RNA (RT-PCR) 07/11/25 07/11/25 07/11/25 13:30 13:30 13:30 MCV MCH MCHC RDW Plt Count MPV Immature Gran % (Auto) Neut % (Auto) Lymph % (Auto) [place] % (Auto) Eos % (Auto) Baso % (Auto) Lymph # (Auto) [place] # (Auto) Eos # (Auto) Baso # (Auto) Abs Immat Gran (auto) Absolute Neuts (auto) Absolute Nucleated RBC Nucleated RBC % (auto) ESR Anion Gap Estim Creat Clear Calc Estimated GFR Random Glucose Fasting Glucose Lactic Acid Calcium Total Bilirubin AST ALT Alkaline Phosphatase C-Reactive Protein Total Protein Albumin CSF Tube Number CSF Volume CSF Appearance CSF Color CSF WBC CSF RBC 955 CSF Neutrophils 1 3 CSF Lymphocytes 82 90 CSF Monocytes % 5 CSF Other Cells % CSF Appearance (b) CSF Glucose CSF Total Protein CSF C.neoform/gat PCR CSF CMV DNA (PCR) CSF Enterovirus (PCR) CSF E. coli K1 (PCR) CSF H. influenzae (PCR) CSF HSV I (PCR) CSF HSV II (PCR) CSF HHV 6 (PCR) CSF L.monocytogenes PCR CSF N. meningitidis PCR CSF Parechovirus (PCR) CSF S. agalactiae (PCR) CSF S. pneumoniae (PCR) CSF VZV (PCR) Respiratory Panel Gregorio Adenovirus (Rapid PCR) B.pert (TEM-PCR) B.parapertussis DNA PCR C. pneumoniae DNA (PCR) Coronavirus OC43 (PCR) Coronavirus HKU1 (PCR) Coronavirus 229E (PCR) Coronavirus NL63 (PCR) Human Metapneumovir PCR Influenza A (RT-PCR) Influenza A (H1) PCR Influ A (H1/09) PCR Influenza A (H3) PCR Influenza B (RT-PCR) M. pneumoniae (PCR) Parainfluenza 1 (PCR) Parainfluenza 2 (PCR) Parainfluenza 3 (PCR) Parainfluenza 4 (PCR) RSV (PCR) Entero/Rhino (PCR) SARS-CoV-2 RNA (RT-PCR) 07/11/25 07/11/25 07/12/25 13:30 13:30 06:08 MCV 90.8 MCH 29.9 MCHC 32.9 RDW 11.3 Plt Count 186 MPV 11.8 Immature Gran % (Auto) 0.5 H Neut % (Auto) 82.4 H Lymph % (Auto) 9.5 L [place] % (Auto) 7.3 Eos % (Auto) 0.0 Baso % (Auto) 0.3 Lymph # (Auto) 1.8 [place] # (Auto) 1.4 H Eos # (Auto) 0.0 Baso # (Auto) 0.1 Abs Immat Gran (auto) 0.09 H Absolute Neuts (auto) 15.9 H Absolute Nucleated RBC 0.000 Nucleated RBC % (auto) 0.0 ESR Anion Gap 13 Estim Creat Clear Calc 82.8 Estimated GFR 52 Random Glucose Fasting Glucose 118 H Lactic Acid Calcium 9.0 Total Bilirubin 0.6 AST 16 ALT 20 Alkaline Phosphatase 39 C-Reactive Protein Total Protein 7.0 Albumin 4.2 CSF Tube Number CSF Volume CSF Appearance CSF Color CSF WBC CSF RBC CSF Neutrophils CSF Lymphocytes CSF Monocytes % 4 CSF Other Cells % 12 3 CSF Appearance (b) Clear, Colorless CSF Glucose 53 CSF Total Protein 111.8 H CSF C.neoform/gat PCR Not Detected CSF CMV DNA (PCR) Not Detected CSF Enterovirus (PCR) Not Detected CSF E. coli K1 (PCR) Not Detected CSF H. influenzae (PCR) Not Detected CSF HSV I (PCR) Not Detected CSF HSV II (PCR) Not Detected CSF HHV 6 (PCR) Not Detected CSF L.monocytogenes PCR Not Detected CSF N. meningitidis PCR Not Detected CSF Parechovirus (PCR) Not Detected CSF S. agalactiae (PCR) Not Detected CSF S. pneumoniae (PCR) Not Detected CSF VZV (PCR) Detected A* Respiratory Panel Gregorio Adenovirus (Rapid PCR) B.pert (TEM-PCR) B.parapertussis DNA PCR C. pneumoniae DNA (PCR) Coronavirus OC43 (PCR) Coronavirus HKU1 (PCR) Coronavirus 229E (PCR) Coronavirus NL63 (PCR) Human Metapneumovir PCR Influenza A (RT-PCR) Influenza A (H1) PCR Influ A (H1/09) PCR Influenza A (H3) PCR Influenza B (RT-PCR) M. pneumoniae (PCR) Parainfluenza 1 (PCR) Parainfluenza 2 (PCR) Parainfluenza 3 (PCR) Parainfluenza 4 (PCR) RSV (PCR) Entero/Rhino (PCR) SARS-CoV-2 RNA (RT-PCR) Microbiology Microbiology Results: Microbiology 07/11/25 13:30 Gram Stain - Final Cerebrospinal Fluid Fluid Description - Final Assessment and Plan (1) Meningitis: Status: Acute (2) Varicella zoster meningitis: Status: Acute Plan 34-year-old male with history of hypertension recurrent shingles and deafness with bilateral cochlear implants status post nephrectomy secondary to renal cancer presents with recurrent shingles to right neck. Neck painful with limited range of motion. Underwent lumbar puncture. .. CSF consistent with varicella virus 1.VSV menningitis, detected on PCR -continue linezolid 600 mg IV b.i.d./ceftriaxone 1 g/acyclovir 700 mg q.12, -morphine/oxycodone for pain -ID consult -contact precautions (shingles 1 dermatome) 2. Hypertension, controlled -continue HCTZ and Lisinopril Full code Lovenox Patient will require at least 2 midnights going forward of inpatient stay to treat varicella zoster meningitis with IV antibiotics and specialty consultation. This can not be achieved a lesser acute setting Quality Stroke Does the patient have a stroke diagnosis?: No VTE Prior VTE?: No VTE Risk Level:: Medical - moderate - high VTE Device Contraindication: Treatment Not Indicated VTE Drug Contraindication: N/A - Med Ordered
[2025-07-12] MEDS: oxyCODONE HCl Immed Release 5 MG TABLET 10 MG PO ×3 (09:36→23:01)
--- NOTE | 2025-07-12 13:04 | P.CNID_ITS ---
History of Present Illness Data of Consult Service Date: 07/11/25 Requesting physician: Denis Logan Primary Care Provider: Maryuri Quinteros APRN HPI Reason for consult: VZV meningitis,C4-6 dermatome zoster He presents with neck stiffness and rash right side cervical area for a day He has had varicella meningitis before he reports. He has had kidney cancer and nephrectomy He has HTN and deafness WBC over 500 on LP and VZV positive. Review of Systems 2 Review of Systems: Yes all other systems are reviewed and are negative [facility] Past Medical History Medical History HTN (hypertension) Social History Social History Household Members: Spouse Housing: Apartment Patient Tobacco Use Status: Never used Tobacco Currently Displaying Signs/Symptoms of Drug Intoxication Withdrawal: No Advance Directives: No Advance Directives Information Provided: No Meds Allergies Allergy/AdvReac Type Severity Reaction Status Date / Time nut - unspecified Allergy Anaphylaxis Verified 07/11/25 09:35 shellfish derived Allergy Anaphylaxis Verified 07/11/25 09:35 Active Medications: Current Medications Acetaminophen (Acetaminophen 325 Mg Tablet) 650 mg PO Q6H PRN PRN Reason: Pain, Mild 1-3,fever,headache Calcium Carbonate (Calcium Carbonate 750 Mg Tab.Chew) 750 mg PO Q4H PRN PRN Reason: Heartburn Enoxaparin Sodium (Enoxaparin Sodium 40 Mg/0.4 Ml Syringe) 40 mg SUBCUT Q24H [facility] Last Admin: 07/12/25 12:58 Dose: 40 mg Hydrochlorothiazide (Hydrochlorothiazide 12.5 Mg Tablet) 12.5 mg PO DAILY [facility] Last Admin: 07/12/25 08:46 Dose: 12.5 mg Ceftriaxone Sodium 2 gm/ (Sodium Chloride) 50 mls @ 100 mls/hr IV Q24H [facility] Last Infusion: 07/12/25 09:42 Dose: Infused Linezolid (Zyvox/D5w) 600 mg in 300 mls @ 300 mls/hr IV Q12H [facility] Last Infusion: 07/12/25 04:28 Dose: Infused Acyclovir Sodium 700 mg/ (Sodium Chloride) 264 mls @ 264 mls/hr IV Q12H [facility] Last Admin: 07/12/25 12:57 Dose: 264 mls/hr Lisinopril (Lisinopril 10 Mg Tablet) 10 mg PO DAILY [facility] Last Admin: 07/12/25 08:46 Dose: 10 mg Loratadine (Loratadine 10 Mg Tablet) 10 mg PO DAILY PRN PRN Reason: Allergy Symptoms Last Admin: 07/12/25 08:47 Dose: 10 mg Magnesium Hydroxide (Milk Of Magnesia 30 Ml Oral.Susp) 30 ml PO DAILY PRN PRN Reason: Constipation Melatonin (Melatonin 3 Mg Tablet) 6 mg PO BEDTIME PRN PRN Reason: Insomnia Morphine Sulfate (Morphine Sulfate 10 Mg/Ml Cartridge) 4 mg IVPUSH Q3H PRN; Protocol PRN Reason: Pain, Severe (Pain Scale 7-10) Last Admin: 07/12/25 12:59 Dose: 4 mg Ondansetron HCl (Ondansetron Hcl 4 Mg/2 Ml Vial) 4 mg IVPUSH Q8H PRN PRN Reason: Nausea and Vomiting Oxycodone HCl (Oxycodone Hcl Immed Release 5 Mg Tablet) 10 mg PO Q4H PRN PRN Reason: Pain, Moderate(Pain Scale 4-6) Last Admin: 07/12/25 09:36 Dose: 10 mg Sodium Chloride (0.9 % Sodium Chloride Flush 3 Ml [facility]ringe) [facility] Last Admin: 07/12/25 08:54 Dose: 3 ml Home Medications ?Medication ?Instructions ?Recorded ?Confirmed ?Last Taken ?Type cetirizine 10 mg tablet 10 mg PO DAILY PRN Allergy S ymptoms 07/11/25 07/11/25 Unknown History Physical Exam 2 Vital Signs: Vital Signs: Last Vital Signs Temp 97.6 F 07/12/25 08:00 Pulse 73 07/12/25 08:00 Resp 18 07/12/25 08:00 BP 130/74 07/12/25 08:00 Pulse Ox 96 07/12/25 08:00 O2 Del Method Room Air 07/12/25 08:00 BMI result Body Mass Index 35.6 Const: General: cooperative HEENT: Head: Yes normal to inspection Face and sinus: Yes normal facial exam Mouth: Normal oral and palatal mucosa present Teeth and gingiva: d entition normal Eyes: General: appearance normal, both eyes and all related structures P upils: Equal, round and reactive pupils present Resp: Effort & Inspection: normal respiratory effort Cardio: Rate: regular rate Rhythm: regular rhythm GI: Palpation (GI): Soft to palpation and nontender : General: Yes no CVA tenderness Back/Spine/Pelvis: Back: no CVA tenderness Skin: Other: cervical right neck zoster,no dissemination and really two dermatome Neuro: Other: meningismus Cranial nerves: Yes Equal, round and reactive pupils present Extrem: General: Yes normal to inspection Psych: Appearance: grossly normal Results Labs 07/12/25 06:08 07/12/25 06:08 Labs: Short CBC 07/12/25 Range/Units 06:08 WBC 19.2 H (4.8-10.8) X10*3/uL Hgb 12.3 L (14.0-18.0) g/dl Hct 37.4 L (42.0-52.0) % Plt Count 186 (160-400) X10*3/uL BMP 07/12/25 06:08 Sodium 138 Potassium 4.4 Chloride 107 Carbon Dioxide 22 BUN 27 H Creatinine 1.56 H Calcium 9.0 Liver Function 07/12/25 Range/Units 06:08 Total Bilirubin 0.6 (0.0-1.0) mg/dL AST 16 (5-37) U/L ALT 20 (0-40) U/L Alkaline Phosphatase 39 (39-117) U/L Albumin 4.2 (3.5-5.0) g/dL Microbiology Microbiology Results: Microbiology 07/11/25 10:01 Blood - Venous Blood Culture - Preliminary No growth after 24 hours. 07/11/25 10:01 Blood - Venous Blood Culture - Preliminary No growth after 24 hours. 07/11/25 13:30 Cerebrospinal Fluid Gram Stain - Final 07/11/25 13:30 Cerebrospinal Fluid Fluid Description - Final 07/11/25 13:30 Cerebrospinal Fluid CSF Culture - Preliminary No growth after 1 day Assessment and Plan (1) Varicella zoster meningitis: Status: Acute Plan Renal dose adjust for him,normal renal function is 10 mg per kg every 8 hours but reduce here as appropriate per pharmacy to last for 14 days IV treatement. Stop Ceftriaxone and linezolid as I dont see indication ??unless there is some reason not in his history. Contact precautions
--- NOTE | 2025-07-12 15:30 | MHC.CM.PN ---
Patient lives at home w/ . Independent w/ all care. Deaf w/ cochlear implants. Has a nebulizer. PCP Maribell Quinteros [facility] No HCP. CM provided education and offered assistance. Patient declined. DP: Home w/ home infusion x 14 days. can assist and will transport [place]. CM will continue to follow.
[2025-07-12 15:31] VITALS: BP 115/61; PULSE 72; RESP 18; TEMP 36.9; O2SAT 93
[2025-07-12 19:33] VITALS: BP 134/63; PULSE 98; RESP 14; TEMP 36.9; O2SAT 94
[2025-07-13 03:17] VITALS: BP 122/56; PULSE 89; RESP 16; TEMP 36.7; O2SAT 94
[2025-07-13 06:07] LABS: MANUAL DIFF FLAG NO
[2025-07-13 06:24] LABS: Alanine Aminotransferase 24 U/L (0-40); Albumin Level 4.3 g/dL (3.5-5.0); Alkaline Phosphatase 38 U/L (39-117); Anion Gap 14 (12-20); Aspartate Amino Transferase 19 U/L (5-37); Blood Urea Nitrogen 27 mg/dL (9-16); Calcium 9.0 mg/dL (8.4-10.2); Carbon Dioxide 25 mmol/L (22-29); Chloride 106 mmol/L (96-108); Creatinine Clr Calc Pharmacy 68.7; Estimated Glomerular Filt Rate 42; Potassium 4.5 mmol/L (3.3-5.1); Sodium 140 mmol/L (135-145); Total Protein 7.0 g/dL (6.5-8.0)
[2025-07-13 06:30] LABS: Hematocrit 38.8 % (42.0-52.0); Hemoglobin 12.8 g/dl (14.0-18.0); Imm Gran Abs Auto 0.03 X10*3/uL (0.00-0.03); Imm Gran Pct Auto 0.3 % (0.0-0.4); Lymphocytes Absolute Auto 3.2 X10*3/uL (1.2-4.9); Mean Corpuscular HGB Conc 33.0 g/dl (31.0-36.0); Mean Corpuscular Hemoglobin 30.2 pg (27.0-33.0); Mean Corpuscular Volume 91.5 fL (80.0-98.0); NRBC Abs Auto 0.000 X10*3/uL (0.0-0.012); NRBC Pct Auto 0.0 /100WBC (0.0-0.2); Platelet Count 170 X10*3/uL (160-400); Red Blood Count 4.24 X10*6/uL (4.60-5.80); White Blood Count 10.1 X10*3/uL (4.8-10.8)
[2025-07-13 08:00] VITALS: BP 130/67; PULSE 99; RESP 18; TEMP 36.9; O2SAT 96
[2025-07-13] MEDS: 0.9 % Sodium Chloride Flush 3 ML SYRINGE IVFLUSH ×3 (08:39→20:33)
[2025-07-13] MEDS: oxyCODONE HCl Immed Release 5 MG TABLET 10 MG PO ×4 (09:07→20:32)
--- NOTE | 2025-07-13 14:56 | P.PNIM_ITS ---
Subjective Subjective Date of Service: 07/13/25 Interval History: No acute issues overnight. Pain management adjusted Review of Systems Denies chest pain No shortness of breath Denies nausea vomiting diarrhea Denies fever chills Physical Exam 2 Vital Signs: Vital Signs: Last Vital Signs Temp 98.4 F 07/13/25 08:00 Pulse 99 07/13/25 08:00 Resp 18 07/13/25 08:00 BP 130/67 07/13/25 08:00 Pulse Ox 96 07/13/25 08:00 O2 Del Method Room Air 07/13/25 08:00 BMI result Body Mass Index 35.6 Const: Other: Awake alert uncomfortable appearing Neck: Other: Raised erythematous papules right lateral neck; pain with minimal range of motion to neck. Positive nuchal rigidity Resp: Other: Clear to auscultation bilaterally no rales rhonchi or wheezes Cardio: Other: No S4; positive S1-S2; no S3 murmurs rubs or gallops GI: Other: Soft nontender nondistended normoactive bowel sounds Extrem: Other: No edema Objective Data Active Medications Acetaminophen (Acetaminophen 325 Mg Tablet) 650 mg PO Q6H PRN PRN Reason: Pain, Mild 1-3,fever,headache Calcium Carbonate (Calcium Carbonate 750 Mg Tab.Chew) 750 mg PO Q4H PRN PRN Reason: Heartburn Enoxaparin Sodium (Enoxaparin Sodium 40 Mg/0.4 Ml Syringe) 40 mg SUBCUT Q24H [facility] Last Admin: 07/13/25 13:23 Dose: 40 mg Documented By: HENRY Hydrochlorothiazide (Hydrochlorothiazide 12.5 Mg Tablet) 12.5 mg PO DAILY [facility] Last Admin: 07/13/25 08:42 Dose: 12.5 mg Documented By: HENRY Acyclovir Sodium 700 mg/ (Sodium Chloride) 264 mls @ 264 mls/hr IV Q12H [facility] Last Infusion: 07/13/25 14:53 Dose: Infused Documented By: AINSLEY Lisinopril (Lisinopril 10 Mg Tablet) 10 mg PO DAILY [facility] Last Admin: 07/13/25 08:32 Dose: 10 mg Documented By: HENRY Loratadine (Loratadine 10 Mg Tablet) 10 mg PO DAILY PRN PRN Reason: Allergy Symptoms Last Admin: 07/13/25 08:43 Dose: 10 mg Documented By: HENRY Magnesium Hydroxide (Milk Of Magnesia 30 Ml Oral.Susp) 30 ml PO DAILY PRN PRN Reason: Constipation Melatonin (Melatonin 3 Mg Tablet) 6 mg PO BEDTIME PRN PRN Reason: Insomnia Last Admin: 07/12/25 23:02 Dose: 6 mg Documented By: GENARO Morphine Sulfate (Morphine Sulfate 10 Mg/Ml Cartridge) 4 mg IVPUSH Q3H PRN; Protocol PRN Reason: Pain, Severe (Pain Scale 7-10) Last Admin: 07/13/25 14:51 Dose: 4 mg Documented By: AINSLEY Ondansetron HCl (Ondansetron Hcl 4 Mg/2 Ml Vial) 4 mg IVPUSH Q8H PRN PRN Reason: Nausea and Vomiting Oxycodone HCl (Oxycodone Hcl Immed Release 5 Mg Tablet) 10 mg PO Q4H PRN PRN Reason: Pain, Moderate(Pain Scale 4-6) Last Admin: 07/13/25 12:19 Dose: 10 mg Documented By: HENRY Comments: ok to give now per dr gaona Sodium Chloride (0.9 % Sodium Chloride Flush 3 Ml Syringe) 3 ml IVFSH [facility] Last Admin: 07/13/25 08:39 Dose: 3 ml Documented By: HENRY Labs 07/13/25 05:57 07/13/25 05:57 Labs: Laboratory Results - last 24 hr 07/13/25 05:57 MCV 91.5 MCH 30.2 MCHC 33.0 RDW 11.5 Plt Count 170 MPV 11.4 Immature Gran % (Auto) 0.3 Neut % (Auto) 60.1 Lymph % (Auto) 31.4 [place] % (Auto) 5.9 Eos % (Auto) 1.6 Baso % (Auto) 0.7 Lymph # (Auto) 3.2 [place] # (Auto) 0.6 Eos # (Auto) 0.2 Baso # (Auto) 0.1 Abs Immat Gran (auto) 0.03 Absolute Neuts (auto) 6.1 Absolute Nucleated RBC 0.000 Nucleated RBC % (auto) 0.0 Anion Gap 14 Estim Creat Clear Calc 68.7 Estimated GFR 42 Random Glucose 94 Calcium 9.0 Phosphorus 4.2 Total Bilirubin 0.6 AST 19 ALT 24 Alkaline Phosphatase 38 L Total Protein 7.0 Albumin 4.3 Microbiology Microbiology Results: Microbiology 07/11/25 10:01 Blood Culture - Preliminary Blood - Venous No growth after 48 hours. 07/11/25 10:01 Blood Culture - Preliminary Blood - Venous No growth after 48 hours. 07/11/25 13:30 Gram Stain - Final Cerebrospinal Fluid Fluid Description - Final CSF Culture - Preliminary No growth after 2 days Assessment and Plan (1) Varicella zoster meningitis: Status: Acute (2) HTN (hypertension): Status: Acute Plan 34-year-old male with history of hypertension recurrent shingles and deafness with bilateral cochlear implants status post nephrectomy secondary to renal cancer presents with recurrent shingles to right neck. Neck painful with limited range of motion. Underwent lumbar puncture. .. CSF consistent with varicella virus 1.VZV menningitis (all meds reviewed with pharmacy and dosed appropriately for renal function) -D/C linezolid 600 mg IV b.i.d./ceftriaxone 1 g..... acyclovir 700 mg q.12 IV (11/23) -morphine/oxycodone for pain -ID consult appreciated -contact precautions (shingles 1 dermatome) 2. Hypertension -acceptable control on current therapy -adjust as indicated Full code Lovenox Patient will require ongoing hospitalization to treat varicella zoster meningitis with IV antibiotics and specialty consultation. This can not be achieved a lesser acute setting Quality Stroke Does the patient have a stroke diagnosis?: No VTE Prior VTE?: No VTE Risk Level:: Medical - moderate - high VTE Device Contraindication: Treatment Not Indicated VTE Drug Contraindication: N/A - Med Ordered
[2025-07-13 15:29] VITALS: BP 111/55; PULSE 55; RESP 18; TEMP 37.3; O2SAT 96
[2025-07-13 19:21] VITALS: BP 101/59; PULSE 85; RESP 15; TEMP 36.5; O2SAT 93
[2025-07-14] MEDS: oxyCODONE HCl Immed Release 5 MG TABLET 10 MG PO ×2 (00:45→04:41)
[2025-07-14 03:24] VITALS: BP 123/58; PULSE 84; RESP 17; TEMP 36.2; O2SAT 92
[2025-07-14 07:58] VITALS: BP 104/58; PULSE 88; RESP 18; TEMP 37.3; O2SAT 97
[2025-07-14 10:32] LABS: Albumin Level 4.4 g/dL (3.5-5.0); Alkaline Phosphatase 44 U/L (39-117); Anion Gap 13 (12-20); Aspartate Amino Transferase 33 U/L (5-37); Blood Urea Nitrogen 28 mg/dL (9-16); Calcium 9.4 mg/dL (8.4-10.2); Carbon Dioxide 25 mmol/L (22-29); Chloride 104 mmol/L (96-108); Creatinine Clr Calc Pharmacy 68.7; Estimated Glomerular Filt Rate 42; Potassium 4.3 mmol/L (3.3-5.1); Sodium 138 mmol/L (135-145); Total Protein 7.3 g/dL (6.5-8.0)
[2025-07-14] MEDS: 0.9 % Sodium Chloride Flush 3 ML SYRINGE IVFLUSH ×2 (10:45→13:54)
[2025-07-14 10:49] LABS: Alanine Aminotransferase 42 U/L (0-40)
--- NOTE | 2025-07-14 12:21 | HO.PM.IMPN ---
Subjective Subjective Date of Service: 07/14/25 Interval History: No acute issues overnight Review of Systems Denies chest pain No shortness of breath Denies nausea vomiting diarrhea Denies fever chills Physical Exam Vital Signs: Vital Signs: Last Vital Signs Temp 99.1 F 07/14/25 07:58 Pulse 88 07/14/25 07:58 Resp 18 07/14/25 07:58 BP 104/58 L 07/14/25 07:58 Pulse Ox 97 07/14/25 07:58 O2 Del Method Room Air 07/14/25 07:58 BMI result Body Mass Index 35.6 Const: Other: Awake alert uncomfortable appearing Neck: Other: Raised erythematous papules right lateral neck; pain with minimal range of motion to neck. Positive nuchal rigidity Resp: Other: Clear to auscultation bilaterally no rales rhonchi or wheezes Cardio: Other: No S4; positive S1-S2; no S3 murmurs rubs or gallops GI: Other: Soft nontender nondistended normoactive bowel sounds Extrem: Other: No edema Objective Data Active Medications Acetaminophen (Acetaminophen 325 Mg Tablet) 650 mg PO Q6H PRN PRN Reason: Pain, Mild 1-3,fever,headache Calcium Carbonate (Calcium Carbonate 750 Mg Tab.Chew) 750 mg PO Q4H PRN PRN Reason: Heartburn Enoxaparin Sodium (Enoxaparin Sodium 40 Mg/0.4 Ml Syringe) 40 mg SUBCUT Q24H [facility] Last Admin: 07/13/25 13:23 Dose: 40 mg Documented By: HENRY Acyclovir Sodium 700 mg/ (Sodium Chloride) 264 mls @ 264 mls/hr IV Q12H [facility] Last Admin: 07/14/25 12:02 Dose: 264 mls/hr Documented By: HENRY Loratadine (Loratadine 10 Mg Tablet) 10 mg PO DAILY PRN PRN Reason: Allergy Symptoms Last Admin: 07/14/25 08:09 Dose: 10 mg Documented By: HENRY Magnesium Hydroxide (Milk Of Magnesia 30 Ml Oral.Susp) 30 ml PO DAILY PRN PRN Reason: Constipation Melatonin (Melatonin 3 Mg Tablet) 6 mg PO BEDTIME PRN PRN Reason: Insomnia Last Admin: 07/13/25 22:20 Dose: 6 mg Documented By: HO.OR[place]V Morphine Sulfate (Morphine Sulfate 4 Mg/Ml Cartridge) 4 mg IVPUSH Q3H PRN; Protocol PRN Reason: Pain, Severe (Pain Scale 7-10) Last Admin: 07/14/25 12:02 Dose: 4 mg Documented By: HENRY Ondansetron HCl (Ondansetron Hcl 4 Mg/2 Ml Vial) 4 mg IVPUSH Q8H PRN PRN Reason: Nausea and Vomiting Last Admin: 07/14/25 08:06 Dose: 4 mg Documented By: HENRY Oxycodone HCl (Oxycodone Hcl Immed Release 5 Mg Tablet) 10 mg PO Q4H [facility] Last Admin: 07/14/25 10:43 Dose: Not Given Documented By: HENRY Non-Admin Reason: Patient Refused Scopolamine (Scopolamine 1.5 Mg Patch.Td.3) 1.5 mg EAR-BEHIND Q72H [facility] Last Admin: 07/14/25 10:30 Dose: 1.5 mg Documented By: HENRY Sodium Chloride (0.9 % Sodium Chloride Flush 3 Ml Syringe) 3 ml IVFLUSH QSHIFT [facility] Last Admin: 07/14/25 10:45 Dose: 3 ml Documented By: HENRY Labs 07/13/25 05:57 07/14/25 08:35 Labs: Laboratory Results - last 24 hr 07/14/25 08:35 Hold Purple Top SEE NOTE Anion Gap 13 Estim Creat Clear Calc 68.7 Estimated GFR 42 Random Glucose 81 Calcium 9.4 Total Bilirubin 0.8 AST 33 ALT 42 H Alkaline Phosphatase 44 Total Protein 7.3 Albumin 4.4 Microbiology Microbiology Results: Microbiology 07/11/25 13:30 Gram Stain - Final Cerebrospinal Fluid Fluid Description - Final CSF Culture - Final No growth after 3 days. 07/11/25 10:01 Blood Culture - Preliminary Blood - Venous No growth after 48 hours. 07/11/25 10:01 Blood Culture - Preliminary Blood - Venous No growth after 48 hours. Assessment and Plan (1) Varicella zoster meningitis: Status: Acute (2) HTN (hypertension): Status: Acute (3) CKD (chronic kidney disease): Status: Acute Plan 34-year-old male with history of hypertension recurrent shingles and deafness with bilateral cochlear implants status post nephrectomy secondary to renal cancer presents with recurrent shingles to right neck. Neck painful with limited range of motion. Underwent lumbar puncture. .. CSF consistent with varicella virus 1.VZV menningitis (all meds reviewed with pharmacy and dosed appropriately for renal function) -D/C linezolid 600 mg IV b.i.d./ceftriaxone 1 g..... acyclovir 700 mg q.12 IV (12/24) -morphine/oxycodone for pain -ID consult appreciated -contact precautions (shingles 1 dermatome) 2. CKD -increase from baseline -blood pressure acceptable; we will DC lisinopril and hydrochlorothiazide -follow renals/divalents.. No improvementIn a.m. renal consult 3.Hypertension -acceptable control on current therapy -adjust as indicated Full code Yannick Patient will require ongoing hospitalization to treat varicella zoster meningitis with IV antibiotics and specialty consultation. This can not be achieved a lesser acute setting Quality Stroke Does the patient have a stroke diagnosis?: No VTE Prior VTE?: No VTE Risk Level:: Medical - moderate - high VTE Device Contraindication: Treatment Not Indicated VTE Drug Contraindication: N/A - Med Ordered
[2025-07-14 15:32] VITALS: BP 119/58; PULSE 92; RESP 18; TEMP 37.3; O2SAT 93
[2025-07-14 19:25] VITALS: BP 112/68; PULSE 83; RESP 18; TEMP 37.3; O2SAT 95
[2025-07-15] MEDS: 0.9 % Sodium Chloride Flush 3 ML SYRINGE IVFLUSH ×3 (00:26→19:24)
[2025-07-15 04:00] VITALS: BP 100/58; PULSE 69; RESP 18; TEMP 36.9; O2SAT 95
[2025-07-15 06:15] LABS: MANUAL DIFF FLAG NO
[2025-07-15 06:34] LABS: Alanine Aminotransferase 42 U/L (0-40); Albumin Level 4.3 g/dL (3.5-5.0); Alkaline Phosphatase 39 U/L (39-117); Anion Gap 12 (12-20); Aspartate Amino Transferase 26 U/L (5-37); Blood Urea Nitrogen 30 mg/dL (9-16); Calcium 9.3 mg/dL (8.4-10.2); Carbon Dioxide 23 mmol/L (22-29); Chloride 105 mmol/L (96-108); Creatinine Clr Calc Pharmacy 73.0; Estimated Glomerular Filt Rate 45; Hematocrit 40.9 % (42.0-52.0); Hemoglobin 13.7 g/dl (14.0-18.0); Imm Gran Abs Auto 0.02 X10*3/uL (0.00-0.03); Imm Gran Pct Auto 0.3 % (0.0-0.4); Lymphocytes Absolute Auto 1.9 X10*3/uL (1.2-4.9); Mean Corpuscular HGB Conc 33.5 g/dl (31.0-36.0); Mean Corpuscular Hemoglobin 30.2 pg (27.0-33.0); Mean Corpuscular Volume 90.3 fL (80.0-98.0); NRBC Abs Auto 0.000 X10*3/uL (0.0-0.012); NRBC Pct Auto 0.0 /100WBC (0.0-0.2); Platelet Count 154 X10*3/uL (160-400); Potassium 4.1 mmol/L (3.3-5.1); Red Blood Count 4.53 X10*6/uL (4.60-5.80); Sodium 136 mmol/L (135-145); Total Protein 7.1 g/dL (6.5-8.0); White Blood Count 6.9 X10*3/uL (4.8-10.8)
[2025-07-15 07:55] VITALS: BP 105/59; PULSE 73; RESP 18; TEMP 36.8; O2SAT 92
--- NOTE | 2025-07-15 10:36 | MHC.CM.PN ---
Addendum entered by Roslyn Pelaez RN 07/15/25 12:47: [facility] teach and orders complete. Original Note: Patient not medically cleared for dc. Awaiting line placement and [facility] teach/orders - anticipate today. Patient aware. [facility] following.
--- NOTE | 2025-07-15 11:47 | P.PNIM_ITS ---
Subjective Subjective Date of Service: 07/15/25 Interval History: No acute issues overnight. Still dizzy with movement Review of Systems Denies chest pain No shortness of breath Denies nausea vomiting diarrhea Denies fever chills Physical Exam 2 Vital Signs: Vital Signs: Last Vital Signs Temp 98.2 F 07/15/25 07:55 Pulse 73 07/15/25 07:55 Resp 18 07/15/25 07:55 BP 105/59 L 07/15/25 07:55 Pulse Ox 92 07/15/25 07:55 O2 Del Method Room Air 07/15/25 07:55 BMI result Body Mass Index 35.6 Const: Other: Awake alert uncomfortable appearing Neck: Other: Raised erythematous papules right lateral neck; pain with minimal range of motion to neck. Positive nuchal rigidity Resp: Other: Clear to auscultation bilaterally no rales rhonchi or wheezes Cardio: Other: No S4; positive S1-S2; no S3 murmurs rubs or gallops GI: Other: Soft nontender nondistended normoactive bowel sounds Extrem: Other: No edema Objective Data Active Medications Acetaminophen (Acetaminophen 325 Mg Tablet) 650 mg PO Q6H PRN PRN Reason: Pain, Mild 1-3,fever,headache Calcium Carbonate (Calcium Carbonate 750 Mg Tab.Chew) 750 mg PO Q4H PRN PRN Reason: Heartburn Enoxaparin Sodium (Enoxaparin Sodium 40 Mg/0.4 Ml Syringe) 40 mg SUBCUT Q24H [facility] Last Admin: 07/14/25 13:54 Dose: 40 mg Documented By: HENRY Acyclovir Sodium 700 mg/ (Sodium Chloride) 264 mls @ 264 mls/hr IV Q12H [facility] Last Infusion: 07/15/25 01:25 Dose: Infused Documented By: PANFILO Loratadine (Loratadine 10 Mg Tablet) 10 mg PO DAILY PRN PRN Reason: Allergy Symptoms Last Admin: 07/14/25 08:09 Dose: 10 mg Documented By: HENRY Magnesium Hydroxide (Milk Of Magnesia 30 Ml Oral.Susp) 30 ml PO DAILY PRN PRN Reason: Constipation Melatonin (Melatonin 3 Mg Tablet) 6 mg PO BEDTIME PRN PRN Reason: Insomnia Last Admin: 07/15/25 00:22 Dose: 6 mg Documented By: PANFILO Morphine Sulfate (Morphine Sulfate 4 Mg/Ml Cartridge) 4 mg IVPUSH Q3H PRN; Protocol PRN Reason: Pain, Severe (Pain Scale 7-10) Last Admin: 07/15/25 11:22 Dose: 4 mg Documented By: VITA Ondansetron HCl (Ondansetron Hcl 4 Mg/2 Ml Vial) 4 mg IVPUSH Q8H PRN PRN Reason: Nausea and Vomiting Last Admin: 07/15/25 11:21 Dose: 4 mg Documented By: VITA Oxycodone HCl (Oxycodone Hcl Immed Release 5 Mg Tablet) 10 mg PO Q4H [facility] Last Admin: 07/15/25 11:05 Dose: Not Given Documented By: VITA Non-Admin Reason: Patient Refused Polyethylene Glycol (Polyethylene Glycol 3350 17 Gm Powd.Pack) 17 gm PO DAILY [facility] Last Admin: 07/15/25 11:05 Dose: Not Given Documented By: VITA Non-Admin Reason: Patient Refused Scopolamine (Scopolamine 1.5 Mg Patch.Td.3) 1.5 mg EAR-BEHIND Q72H [facility] Last Admin: 07/14/25 10:30 Dose: 1.5 mg Documented By: HENRY Senna (Sennosides 8.6 Mg Tablet) 8.6 mg PO DAILY [facility] Last Admin: 07/15/25 11:04 Dose: 8.6 mg Documented By: VITA Sodium Chloride (0.9 % Sodium Chloride Flush 3 Ml Syringe) 3 ml IVFLUSH QSHIFT [facility] Last Admin: 07/15/25 11:06 Dose: 3 ml Documented By: VITA Labs 07/15/25 05:35 07/15/25 05:35 Labs: Laboratory Results - last 24 hr 07/15/25 05:35 MCV 90.3 MCH 30.2 MCHC 33.5 RDW 11.2 Plt Count 154 L MPV 11.7 Immature Gran % (Auto) 0.3 Neut % (Auto) 57.5 Lymph % (Auto) 28.1 [place] % (Auto) 7.6 Eos % (Auto) 5.5 H Baso % (Auto) 1.0 Lymph # (Auto) 1.9 [place] # (Auto) 0.5 Eos # (Auto) 0.4 Baso # (Auto) 0.1 Abs Immat Gran (auto) 0.02 Absolute Neuts (auto) 4.0 Absolute Nucleated RBC 0.000 Nucleated RBC % (auto) 0.0 Anion Gap 12 Estim Creat Clear Calc 73.0 Estimated GFR 45 Fasting Glucose 99 Calcium 9.3 Total Bilirubin 0.5 AST 26 ALT 42 H Alkaline Phosphatase 39 Total Protein 7.1 Albumin 4.3 Microbiology Microbiology Results: Microbiology 07/11/25 13:30 Gram Stain - Final Cerebrospinal Fluid Fluid Description - Final CSF Culture - Final No growth after 3 days. Assessment and Plan (1) Varicella zoster meningitis: Status: Acute Plan 34-year-old male with history of hypertension recurrent shingles and deafness with bilateral cochlear implants status post nephrectomy secondary to renal cancer presents with recurrent shingles to right neck. Neck painful with limited range of motion. Underwent lumbar puncture. .. CSF consistent with varicella virus 1.VZV menningitis (all meds reviewed with pharmacy and dosed appropriately for renal function) -D/C linezolid 600 mg IV b.i.d./ceftriaxone 1 g..... acyclovir 700 mg q.12 IV (01/23) -morphine/oxycodone for pain -ID consult appreciated -contact precautions (shingles 1 dermatome) -midline 2. CKD -increase from baseline -blood pressure acceptable; we will DC lisinopril and hydrochlorothiazide -follow renals/divalents.. No improvementIn a.m. renal consult 3.Hypertension -acceptable control on current therapy -adjust as indicated Full code Lovenox Patient will require ongoing hospitalization to treat varicella zoster meningitis with IV antibiotics and specialty consultation. This can not be achieved a lesser acute setting Quality Stroke Does the patient have a stroke diagnosis?: No VTE Prior VTE?: No VTE Risk Level:: Medical - moderate - high VTE Device Contraindication: Treatment Not Indicated VTE Drug Contraindication: N/A - Med Ordered
--- NOTE | 2025-07-15 13:06 | P.CONNP_ITS ---
History of Present Illness Reason for Consult Consult date: 07/15/25 Reason for consult: GOPI Chief Complaint Chief complaint: shingles History of Present Illness Narrative: 34 year old assigned male at with a history of HTN, shingles, and deafness with bilateral cochlear, 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 Patient states that over the last day he has felt generally unwell with nausea, vomiting, a rash to the right side of his neck, and significant head and neck pain. Patient states that when he bends his head down and touches his chin to his chest he has excruciating pain that radiates down his spine. History of GOPI requiring short-term dialysis in the past. Review of Systems Constitutional: Denies fever(s) and Denies weight loss Cardiovascular: Denies chest pain Respiratory: Denies cough and Denies hemoptysis Gastrointestinal: Denies abdominal pain, Denies diarrhea and Denies nausea Musculoskeletal: Denies back pain Denies focal weakness PMFSH Past Medical History Medical History HTN (hypertension) Social History Social History Household Members: Spouse Housing: Apartment Patient Tobacco Use Status: Never used Tobacco Currently Displaying Signs/Symptoms of Drug Intoxication Withdrawal: No Advance Directives: No Advance Directives Information Provided: No service: No Meds Allergies Allergy/AdvReac Type Severity Reaction Status Date / Time nut - unspecified Allergy Anaphylaxis Verified 07/11/25 09:35 shellfish derived Allergy Anaphylaxis Verified 07/11/25 09:35 Active Medications: Current Medications Acetaminophen (Acetaminophen 325 Mg Tablet) 650 mg PO Q6H PRN PRN Reason: Pain, Mild 1-3,fever,headache Calcium Carbonate (Calcium Carbonate 750 Mg Tab.Chew) 750 mg PO Q4H PRN PRN Reason: Heartburn Enoxaparin Sodium (Enoxaparin Sodium 40 Mg/0.4 Ml Syringe) 40 mg SUBCUT Q24H [facility] Last Admin: 07/14/25 13:54 Dose: 40 mg Acyclovir Sodium 700 mg/ (Sodium Chloride) 264 mls @ 264 mls/hr IV Q12H [facility] Last Infusion: 07/15/25 01:25 Dose: Infused Loratadine (Loratadine 10 Mg Tablet) 10 mg PO DAILY PRN PRN Reason: Allergy Symptoms Last Admin: 07/14/25 08:09 Dose: 10 mg Magnesium Hydroxide (Milk Of Magnesia 30 Ml Oral.Susp) 30 ml PO DAILY PRN PRN Reason: Constipation Melatonin (Melatonin 3 Mg Tablet) 6 mg PO BEDTIME PRN PRN Reason: Insomnia Last Admin: 07/15/25 00:22 Dose: 6 mg Morphine Sulfate (Morphine Sulfate 4 Mg/Ml Cartridge) 4 mg IVPUSH Q3H PRN; Protocol PRN Reason: Pain, Severe (Pain Scale 7-10) Last Admin: 07/15/25 11:22 Dose: 4 mg Ondansetron HCl (Ondansetron Hcl 4 Mg/2 Ml Vial) 4 mg IVPUSH Q8H PRN PRN Reason: Nausea and Vomiting Last Admin: 07/15/25 11:21 Dose: 4 mg Oxycodone HCl (Oxycodone Hcl Immed Release 5 Mg Tablet) 10 mg PO Q4H [facility] Last Admin: 07/15/25 11:05 Dose: Not Given Polyethylene Glycol (Polyethylene Glycol 3350 17 Gm Powd.Pack) 17 gm PO DAILY [facility] Last Admin: 07/15/25 11:05 Dose: Not Given Scopolamine (Scopolamine 1.5 Mg Patch.Td.3) 1.5 mg EAR-BEHIND Q72H [facility] Last Admin: 07/14/25 10:30 Dose: 1.5 mg Senna (Sennosides 8.6 Mg Tablet) 8.6 mg PO DAILY [facility] Last Admin: 07/15/25 11:04 Dose: 8.6 mg Sodium Chloride (0.9 % Sodium Chloride Flush 3 Ml Syringe) 3 ml IVFLUSH QSHIFT [facility] Last Admin: 07/15/25 11:06 Dose: 3 ml Home Medications ?Medication ?Instructions ?Recorded ?Confirmed ?Last Taken ?Type cetirizine 10 mg tablet 10 mg PO DAILY PRN Allergy S ymptoms 07/11/25 07/11/25 Unknown History Physical Exam Vital Signs: Last Vital Signs Temp 98.2 F 07/15/25 07:55 Pulse 73 07/15/25 07:55 Resp 18 07/15/25 07:55 BP 105/59 L 07/15/25 07:55 Pulse Ox 92 07/15/25 07:55 O2 Del Method Room Air 07/15/25 07:55 BMI result Body Mass Index 35.6 Const General: ill appearing Neck Neck: Yes supple Resp Auscultation: clear to auscultation bilaterally Cardio Palpation: no palpable S3 Heart sounds: no rubs GI Palpation (GI): Soft to palpation Auscultation: normal bowel sounds Neuro Motor exam (neuro): no asterixis Results Lab Results 07/15/25 05:35 07/15/25 05:35 Lab results: Chemistry 07/13/25 07/14/25 07/15/25 05:57 08:35 05:35 Sodium 140 138 136 Potassium 4.5 4.3 4.1 Carbon Dioxide BUN 27 H 28 H 30 H Creatinine 1.88 H 1.88 H 1.77 H Calcium 9.0 9.4 9.3 Phosphorus 4.2 Hematology 07/13/25 07/15/25 05:57 05:35 WBC 10.1 6.9 Hgb 12.8 L 13.7 L Plt Count 170 154 L Assessment and Plan (1) CKD (chronic kidney disease): Status: Acute Plan GOPI superimposed on CKD. Viral meningitis Renal function is close to baseline at this time. Initiated a workup for CKD Urine studies ordered. Obtain records from [facility] For now keep intake more than output Continue to avoid nephrotoxic agents. Further workup will be based on the outcome of the above baseline investigations We shall follow along with the team. Procedures Date of Service Date of Service: 07/15/25
[2025-07-15 15:24] VITALS: BP 118/71; PULSE 76; RESP 18; TEMP 36.4; O2SAT 92
[2025-07-15 19:19] VITALS: BP 124/70; PULSE 76; RESP 18; TEMP 36.7; O2SAT 97
[2025-07-15 22:39] LABS: Appearance Urine Clear; Glucose Urine UA Negative (Negative); PH 6.0 (5.0-9.0); Specific Gravity - Urine 1.020 (1.005-1.025); UMIC TRIGGER UA YES
[2025-07-15 23:01] LABS: Total Protein Urine Random < 7 mg/dL (<12)
[2025-07-16] MEDS: 0.9 % Sodium Chloride Flush 3 ML SYRINGE IVFLUSH ×4 (01:12→19:58)
[2025-07-16 03:09] VITALS: BP 106/58; PULSE 60; RESP 18; TEMP 36; O2SAT 94
[2025-07-16 06:05] LABS: Albumin Level 4.3 g/dL (3.5-5.0); Alkaline Phosphatase 40 U/L (39-117); Anion Gap 12 (12-20); Aspartate Amino Transferase 28 U/L (5-37); Blood Urea Nitrogen 30 mg/dL (9-16); Calcium 9.6 mg/dL (8.4-10.2); Carbon Dioxide 26 mmol/L (22-29); Chloride 106 mmol/L (96-108); Creatinine Clr Calc Pharmacy 72.1; Estimated Glomerular Filt Rate 44; Potassium 4.6 mmol/L (3.3-5.1); Sodium 139 mmol/L (135-145); Total Protein 7.1 g/dL (6.5-8.0)
[2025-07-16 06:20] LABS: Alanine Aminotransferase 45 U/L (0-40)
[2025-07-16 07:44] VITALS: BP 114/67; PULSE 51; RESP 18; TEMP 36.3; O2SAT 96
--- NOTE | 2025-07-16 13:28 | HO.PM.IMPN ---
Subjective Subjective Date of Service: 07/16/25 Interval History: Pt seen this am, Shingles lesions on rt side if neck crusting, he still complains of dizziness with walking , with -ve orthostats, complains of neck pain as well, pending renal clearance fro piccline placement teaching for administration of Acyclovir at home done, Review of Systems -ve except as stated above Physical Exam Exam: Exam: awake alert and oriented x3 crusting lesions on rt side of neck heart RRR chest CTAB, on RA abdomen soft non tender no SAIDA moving all extremities , Vital Signs: Vital Signs: Last Vital Signs Temp 97.3 F 07/16/25 07:44 Pulse 51 07/16/25 07:44 Resp 18 07/16/25 07:44 BP 114/67 07/16/25 07:44 Pulse Ox 96 07/16/25 07:44 O2 Del Method Room Air 07/16/25 07:44 BMI result Body Mass Index 35.6 Objective Data Active Medications Acetaminophen (Acetaminophen 325 Mg Tablet) 650 mg PO Q6H PRN PRN Reason: Pain, Mild 1-3,fever,headache Calcium Carbonate (Calcium Carbonate 750 Mg Tab.Chew) 750 mg PO Q4H PRN PRN Reason: Heartburn Enoxaparin Sodium (Enoxaparin Sodium 40 Mg/0.4 Ml Syringe) 40 mg SUBCUT Q24H [facility] Last Admin: 07/15/25 13:56 Dose: 40 mg Documented By: VITA Acyclovir Sodium 700 mg/ (Sodium Chloride) 264 mls @ 264 mls/hr IV Q12H [facility] Last Admin: 07/16/25 12:57 Dose: 264 mls/hr Documented By: DAISY Loratadine (Loratadine 10 Mg Tablet) 10 mg PO DAILY PRN PRN Reason: Allergy Symptoms Last Admin: 07/14/25 08:09 Dose: 10 mg Documented By: HENRY Magnesium Hydroxide (Milk Of Magnesia 30 Ml Oral.Susp) 30 ml PO DAILY PRN PRN Reason: Constipation Melatonin (Melatonin 3 Mg Tablet) 6 mg PO BEDTIME PRN PRN Reason: Insomnia Last Admin: 07/15/25 22:31 Dose: 6 mg Documented By: PANFILO Morphine Sulfate (Morphine Sulfate 4 Mg/Ml Cartridge) 4 mg IVPUSH Q3H PRN; Protocol PRN Reason: Pain, Severe (Pain Scale 7-10) Last Admin: 07/16/25 12:56 Dose: 4 mg Documented By: DAISY Ondansetron HCl (Ondansetron Hcl 4 Mg/2 Ml Vial) 4 mg IVPUSH Q8H PRN PRN Reason: Nausea and Vomiting Last Admin: 07/16/25 09:09 Dose: 4 mg Documented By: DAISY Polyethylene Glycol (Polyethylene Glycol 3350 17 Gm Powd.Pack) 17 gm PO DAILY [facility] Last Admin: 07/16/25 09:14 Dose: Not Given Documented By: DAISY Non-Admin Reason: Patient Refused Scopolamine (Scopolamine 1.5 Mg Patch.Td.3) 1.5 mg EAR-BEHIND Q72H [facility] Last Admin: 07/14/25 10:30 Dose: 1.5 mg Documented By: HENRY Senna (Sennosides 8.6 Mg Tablet) 8.6 mg PO DAILY [facility] Last Admin: 07/16/25 09:09 Dose: 8.6 mg Documented By: DAISY Sodium Chloride (0.9 % Sodium Chloride Flush 3 Ml Syringe) 3 ml IVFLUSH QSHIFT [facility] Last Admin: 07/16/25 09:09 Dose: 3 ml Documented By: DAISY Labs 07/15/25 05:35 07/16/25 05:17 Labs: Laboratory Results - last 24 hr 07/15/25 07/16/25 22:25 05:17 Hold Purple Top SEE NOTE Anion Gap 12 Estim Creat Clear Calc 72.1 Estimated GFR 44 Fasting Glucose 99 Calcium 9.6 Total Bilirubin 0.5 AST 28 ALT 45 H Alkaline Phosphatase 40 Total Protein 7.1 Albumin 4.3 Urine Color Yellow Urine Appearance Clear Urine pH 6.0 Ur Specific [place] 1.020 Urine Protein Negative Urine Glucose (UA) Negative Urine Ketones Negative Urine Blood Trace H Urine Nitrite Negative Ur Leukocyte Esterase Negative Urine RBC 3-5 H Urine WBC 0-5 Ur Squamous Epith Cells 0-2 Urine Bacteria None Seen Hyaline Casts 0-2 U Random Total Protein < 7 Ur Random Sodium 129.0 Urine Creatinine 160.73 Microbiology Microbiology Results: Microbiology 07/11/25 10:01 Blood Culture - Final Blood - Venous No growth after 5 days. 07/11/25 10:01 Blood Culture - Final Blood - Venous No growth after 5 days. Assessment and Plan (1) HTN (hypertension): Status: Acute (2) Varicella zoster meningitis: Status: Acute (3) CKD (chronic kidney disease): Status: Acute Plan 34-year-old male with history of hypertension recurrent shingles and deafness with bilateral cochlear implants status post nephrectomy secondary to renal cancer presents with recurrent shingles to right neck. Neck painful with limited range of motion. Underwent lumbar puncture. .. CSF consistent with varicella virus 1.VZV menningitis (all meds reviewed with pharmacy and dosed appropriately for renal function) -D/C linezolid 600 mg IV b.i.d./ceftriaxone 1 g..... acyclovir 700 mg q.12 IV for total of 14 days per ID, started on jul 13 dc IV morphine Po oxycodone and tylenol for pain as needed ID consult appreciated contact precautions Picc line placement order in, needs renal clearance 2. CKD -back to his baseline renal following - we will DC lisinopril and hydrochlorothiazide 3.Hypertension hold home med for now Bp stable Full code Lovenox OMN: pending piccline placement Patient will require ongoing hospitalization to treat varicella zoster meningitis with IV antibiotics and specialty consultation. This can not be achieved a lesser acute setting Quality Stroke Does the patient have a stroke diagnosis?: No VTE Prior VTE?: No VTE Risk Level:: Medical - moderate - high VTE Device Contraindication: Treatment Not Indicated VTE Drug Contraindication: N/A - Med Ordered
--- NOTE | 2025-07-16 15:28 | P.PICC_ITS ---
PICC [facility] Insertion [facility] Diagnosis: meningitis Indication: oil heaterman antiviral Pertinent Labs: reviewed. Nephrology clearance by for GFR 44. Technique: Following informed consent including risks, benefits and alternatives and using sterile technique including cap and mask, sterile gown, glove and drape, the right arm was prepped and draped in the usual sterile fashion of full barrier technique with CHG. Following completion of Ingram Protocol the skin and soft tissues were anesthetized with 1% Lidocaine plain. Using ultrasound guidance, right basilic vein access was obtained. Over an 0.018 wire through peel-away sheath, a 4FR single lumen PASV PICC line was positioned. Catheter length is 43cm internal length, 0cm external length, for a total trimmed length of 43cm. The procedure was performed in [facility]. Tip verification was performed by Florecita Ramos with Sherlock 3CG. Tip located in SVC. Ultrasound was used to document vein patency and for needle entry. A formal ultrasound picture and cardiac rhythm strip was recorded. [employer] has released the line for use and it is currently dressed with a StatLock, Tegaderm, and CHG disc. Verification has been performed for blood return and line patency. Arm Circumference: 37cm Equipment: [employer] POWER PICC SOLO with sherlock 3cg Catheter Type: 4FR single lumen PASV Lot #: [id number]
[2025-07-16 15:39] VITALS: BP 122/72; PULSE 82; RESP 16; TEMP 36.7; O2SAT 92
[2025-07-16] MEDS: 0.9 % Sodium Chloride Flush 10 ML SYRINGE IVFLUSH (15:42)
[2025-07-16 19:05] VITALS: BP 121/73; PULSE 67; RESP 14; TEMP 36.3; O2SAT 94
[2025-07-17] MEDS: 0.9 % Sodium Chloride Flush 3 ML SYRINGE IVFLUSH (01:07)
[2025-07-17 03:24] VITALS: BP 112/61; PULSE 55; RESP 16; TEMP 36.1; O2SAT 95
[2025-07-17 06:52] LABS: Alanine Aminotransferase 42 U/L (0-40); Albumin Level 4.2 g/dL (3.5-5.0); Alkaline Phosphatase 40 U/L (39-117); Anion Gap 15 (12-20); Aspartate Amino Transferase 30 U/L (5-37); Blood Urea Nitrogen 26 mg/dL (9-16); Calcium 9.3 mg/dL (8.4-10.2); Carbon Dioxide 22 mmol/L (22-29); Chloride 108 mmol/L (96-108); Creatinine Clr Calc Pharmacy 83.9; Estimated Glomerular Filt Rate 53; Potassium 4.6 mmol/L (3.3-5.1); Sodium 140 mmol/L (135-145); Total Protein 7.2 g/dL (6.5-8.0)
[2025-07-17 06:54] LABS: Alanine Aminotransferase 44 U/L (0-40); Albumin Level 4.2 g/dL (3.5-5.0); Alkaline Phosphatase 39 U/L (39-117); Anion Gap 15 (12-20); Aspartate Amino Transferase 41 U/L (5-37); Blood Urea Nitrogen 26 mg/dL (9-16); Calcium 9.3 mg/dL (8.4-10.2); Carbon Dioxide 21 mmol/L (22-29); Chloride 108 mmol/L (96-108); Creatinine Clr Calc Pharmacy 83.9; Estimated Glomerular Filt Rate 53; Potassium 4.7 mmol/L (3.3-5.1); Sodium 139 mmol/L (135-145); Total Protein 7.4 g/dL (6.5-8.0)
[2025-07-17 07:24] LABS: Vitamin D 25-OH, D2 <4 ng/mL; Vitamin D 25-OH, D3 29 ng/mL; Vitamin D 25-OH, Total 29 ng/mL (30-100)
[2025-07-17 07:40] VITALS: BP 120/70; PULSE 61; RESP 12; TEMP 36.7; O2SAT 96
--- NOTE | 2025-07-17 12:10 | PM.DS ---
DS: Providers Provider Date of Service: 07/17/25 Date of admission: 07/11/25 13:56 Date of discharge: 07/17/25 Primary care physician: Maryuri Quinteros APRN Consults: 07/11/25 15:27 Consult to Infectious Diseases Routine Consulting Provider: [facility] Reason for consultation: shingles Has provider been notified: Yes 07/15/25 07:21 Consult to Nephrology Routine Consulting Provider: [facility] Reason for consultation: gopi Has provider been notified: No 07/16/25 11:13 Consult to Nephrology Routine Consulting Provider: [facility] Reason for consultation: picc line clearance Has provider been notified: No DS: Diagnosis Discharge Diagnosis (1) HTN (hypertension): Status: Acute (2) Varicella zoster meningitis: Status: Acute (3) CKD (chronic kidney disease): Status: Acute DS: Summary Hospital Course Hospital Course: From admission HPI: Date of Service: 07/11/25 Chief Complaint: neck pain 34 year old assigned male at with a history of HTN, shingles, and deafness with bilateral cochlear, 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 Patient states that over the last day he has felt generally unwell with nausea, vomiting, a rash to the right side of his neck, and significant head and neck pain. Patient states that when he bends his head down and touches his chin to his chest he has excruciating pain that radiates down his spine. Patient denies any other complaints at this time. Hospital course Pt was admitted to the hospital for herpes zoster virus meningitis after lumbar puncture performed in the ED came back with WBCs over 500 and VZV positive. Pt was initially started on IV antibiotics and IV acyclovir. Was seen and evaluated by Infectious Disease who stopped antibiotics and recommended continuing acyclovir renally dosed for a total of 14 days of IV treatment. Hospital course was complicated by GOPI on CKD, and pt required nephrology clearance before PICC line could be placed. PICC line was placed last evening and pt will be sent home on acyclovir 700 mg IV b.i.d. x7 additional days for a total of 14 days of IV antiviral treatment; end date 06/23. Pt will be sent home on p.o. analgesics and antiemetics. Pt should follow up with Infectious Disease due to recurrent herpes zoster meningitis, as well as with Nephrology for CKD management. Pt should resume all of his other home medications. Time Attestation Discharge Coordination Time (in mins): 37 Quality: Safe Use of Opioids Does Pt have an Active Cancer Diagnosis on the Problem List?: No Quality: Stroke Does the patient have a stroke diagnosis?: No Physical Exam Exam: Exam: General: AOx3, no acute distress Resp: CTA bilaterally CVS: S1, S2, RRR GI: +BS, NT, no distention Skin: Small area of crusted lesions on right side of neck Neuro: Cranial nerves II-XII grossly intact bilaterally. Motor grossly intact bilaterally Extremities: No edema Psych: Appropriate affect Vital Signs: Vital Signs: Last Vital Signs Temp 98.1 F 07/17/25 07:40 Pulse 61 07/17/25 07:40 Resp 12 07/17/25 07:40 BP 120/70 07/17/25 07:40 Pulse Ox 96 07/17/25 07:40 O2 Del Method Room Air 07/17/25 07:40 BMI result Body Mass Index 35.6 DS: Data Data Completed and Pending Labs on day of discharge: Laboratory Results - last 24 hr 07/13/25 07/17/25 07/17/25 05:58 05:24 05:24 Sodium 139 140 Potassium 4.7 Chloride Carbon Dioxide Anion Gap BUN Creatinine Estim Creat Clear Calc Estimated GFR Random Glucose Fasting Glucose Calcium Total Bilirubin AST ALT Alkaline Phosphatase Total Protein Albumin 25-OH Vitamin D Total 29 L 25-Hydroxy Vitamin D2 <4 25-Hydroxy Vitamin D3 29 TSH 07/17/25 07/17/25 07/17/25 05:24 05:24 05:24 Sodium Potassium 4.6 Chloride 108 108 Carbon Dioxide 21 L 22 Anion Gap 15 BUN Creatinine Estim Creat Clear Calc Estimated GFR Random Glucose Fasting Glucose Calcium Total Bilirubin AST ALT Alkaline Phosphatase Total Protein Albumin 25-OH Vitamin D Total 25-Hydroxy Vitamin D2 25-Hydroxy Vitamin D3 TSH 07/17/25 07/17/25 07/17/25 05:24 05:24 05:24 Sodium Potassium Chloride Carbon Dioxide Anion Gap 15 BUN 26 H 26 H Creatinine 1.54 H 1.54 H Estim Creat Clear Calc 83.9 Estimated GFR Random Glucose Fasting Glucose Calcium Total Bilirubin AST ALT Alkaline Phosphatase Total Protein Albumin 25-OH Vitamin D Total 25-Hydroxy Vitamin D2 25-Hydroxy Vitamin D3 TSH 07/17/25 07/17/25 07/17/25 05:24 05:24 05:24 Sodium Potassium Chloride Carbon Dioxide Anion Gap BUN Creatinine Estim Creat Clear Calc 83.9 Estimated GFR 53 53 Random Glucose 90 Fasting Glucose 88 Calcium 9.3 9.3 Total Bilirubin 0.5 AST ALT Alkaline Phosphatase Total Protein Albumin 25-OH Vitamin D Total 25-Hydroxy Vitamin D2 25-Hydroxy Vitamin D3 TSH 07/17/25 07/17/25 07/17/25 05:24 05:24 05:24 Sodium Potassium Chloride Carbon Dioxide Anion Gap BUN Creatinine Estim Creat Clear Calc Estimated GFR Random Glucose Fasting Glucose Calcium Total Bilirubin 0.5 AST 41 H 30 ALT 44 H 42 H Alkaline Phosphatase 39 Total Protein Albumin 25-OH Vitamin D Total 25-Hydroxy Vitamin D2 25-Hydroxy Vitamin D3 [facility] 07/17/25 07/17/25 07/17/25 05:24 05:24 05:24 Sodium Potassium Chloride Carbon Dioxide Anion Gap BUN Creatinine Estim Creat Clear Calc Estimated GFR Random Glucose Fasting Glucose Calcium Total Bilirubin AST ALT Alkaline Phosphatase 40 Total Protein 7.4 7.2 Albumin 4.2 4.2 25-OH Vitamin D Total 25-Hydroxy Vitamin D2 25-Hydroxy Vitamin D3 TSH Cancelled Discharge Plan Discharge Anticipated Discharge Date/Time: 07/17/25 12:33 Patient Disposition: Home Health Service Discharge Diagnosis: Herpes zoster meningitis Referrals: Maryuri Quinteros APRN [Primary Care Provider, [facility]] - 1 Week Kristie Sherman MD [Physician, Infectious Disease] - 1 Week Referral Note: F/U for recurrent herpes zoster meningitis Discharge Medications: New hydromorphone [Dilaudid] 2 mg tablet 2 mg PO Q8H PRN (Reason: Pain, servere) Qty: 10 0RF Rx Instructions: Partial Fill upon patient request. ondansetron 4 mg tablet,disintegrating 4 mg PO Q8H PRN (Reason: nausea and vomiting) Qty: 15 0RF Continued lisinopril-hydrochlorothiazide 10-12.5 mg tablet 1 tab PO DAILY Qty: 90 2RF cetirizine 10 mg tablet 10 mg PO DAILY PRN (Reason: Allergy Symptoms) Discharge Orders: Discharge Order (Routine); Ordered 07/17/25 Ordered By: David Garcia Activity on Discharge: As tolerated Stand Alone Forms: Patient Portal Discharge page Print Language: St Helenian Care Plan Goals: See below Health Concerns: Herpes zoster meningitis Shingles Intractable pain and nausea Plan of Treatment: You presents to the emergency room with headache, and neck pain, and had a positive lumbar puncture showing WBCs over 500 testing positive for herpes zoster virus. You were started on IV antibiotics and IV antivirals. You were seen and evaluated by Infectious Disease who stopped antibiotics and recommended continuing IV antivirals for a total of 14 days of treatment. You had a PICC line placed on 07/16 and will be discharged on IV acyclovir as well as analgesics and antiemetics. -- take acyclovir 700 mg IV twice a day for the next 7 days, starting the evening of 07/17 and ending on the evening of 07/24. You will have completed a total of 14 days of IV antivirals -- follow up with Dr. Sherman in 1-2 weeks due to recurrent herpes zoster meningitis -- follow up with your lump maker for CKD management Assessment: See discharge summary
--- NOTE | 2025-07-17 14:05 | P.F2F_ITS ---
Service Date Service Date: 07/17/25 Encounter Date of encounter: 07/17/25 Reasons for Services Signs and symptoms assessed: Long-term IV antivirals administered at home Reason for custodial: administration of IV, SQ, or IM injection, central line care and medication management Homebound: Leaving the home is medically contraindicated at this time without the asist of a device and/or another person due th the listed conditions above and below. Reason homebound: immunosuppression / infection risk Certification: Based on the above findings, I certify that this patient is confined to the home and needs intermittent custodial care, physical therapy and/or speech therapy, or continues to need occupational therapy. The patient is under my care, and I have initiated the establishment of the plan of care. The patient will be followed by a physician who will periodically review the plan of care. Time Spent With Patient Time: Total time managing care of this patient today ____ minutes.
--- NOTE | 2025-07-17 14:50 | MHC.CM.PN ---
Patient medically cleared for dc home w/ [facility] and [facility] for management of IV acyclovir. to transport.
--- NOTE | 2025-07-21 19:32 | P.CDIM_ITS ---
PROVIDER RESPONSE TEXT: To clarify, the appropriate diagnosis supported by the clinical indicators: CKD, please provide stage QUERY TEXT: PHYSICIAN'S DOCUMENTATION REQUEST Date of Query: 07/18/2025 08:14 AM EST Patient Name: Magdy Taylor Admit Date: 07/11/2025 Dear David CONCEPCION, RETROSPECTIVE QUERY A review of the medical record indicates additional documentation may be needed. Please review below and update the documentation accordingly. Clinical Indicators: Nephrology consult note 07/15/25 - CKD - GOPI superimposed on CKD. Renal function is close to baseline at this time. Avoid nephrotoxin agents. Discharge summary 07/17/25 - CKD Hospital course complicated by GOPI on CKD. Patient required Nephrology clearance before PICC line could be placed. Please clarify which of the following accurately represents the stage of the noted CKD: CKD, please provide stage ESRD - CKD V now requiring permanent dialysis and/or transplant Other (explain) Clinically unable to determine (explain) Thank you, Sia Lei, CCS, CDIS Use of terms such as suspected, likely, concern for, or probable (associated with a specific diagnosis that is being evaluated, monitored, or treated as if it exists) are acceptable and can be coded in the inpatient setting, when documented at the time of discharge. Please use your independent medical judgment in providing your response. THIS QUERY IS PART OF THE PERMANENT MEDICAL RECORD
== END 2025-07-17 15:01 | disposition home health service (06) | DRG 51 ==
LOC: HO.ED 13:38 → HO.EDOVER 14:02 → HO.S3 14:35
PROVIDERS: Hospitalist; Internal Medicine Hypertension Specialist; Nurse Practitioner Family; Physician Assistant Medical; Admitting Provider Hospitalist; Emergency Provider Emergency Medicine; PCP Nurse Practitioner Family; Visit Provider Student in an Organized Health Care Education/Training Program
DX: B02.1 Zoster meningitis (principal); E66.9 Obesity, unspecified; H91.93 Unspecified hearing loss, bilateral; I12.9 Hypertensive chronic kidney disease with stage 1 through stage 4 chronic kidney disease, or unspecified chronic kidney disease; I10 Essential (primary) hypertension; N18.9 Chronic kidney disease, unspecified; Z90.5 Acquired absence of kidney; Z96.21 Cochlear implant status; Z85.528 Personal history of other malignant neoplasm of kidney; Z68.35 Body mass index [BMI] 35.0-35.9, adult
CPT/HCPCS: 36415; 36573; 70450; 71045; 74018; 80053; 81001; 82306; 82570; 82945; 83605; 84100; 84156; 84157; 84300; 85025; 85652; 86140; 87015; 87040; 87070; 87205; 87483; 87633; 89051; 99285; C1751; J0131; J0133; J0696; J0737; J1200; J1650; J2003; J2020; J2270; J2405; J2919

== ENCOUNTER → 2025-07-11 09:53 | Outpatient (BNV) | payer OTHER, SELFPAY | PROVIDERS: PCP Nurse Practitioner Family; Visit Provider Radiology Body Imaging | DX: J32.9 Chronic sinusitis, unspecified (principal); R91.8 Other nonspecific abnormal finding of lung field | CPT/HCPCS: 70450; 71045 ==

== ENCOUNTER 2025-07-11 13:56 | Outpatient (BNV) | payer OTHER, SELFPAY | END 2025-07-14 16:30 | PROVIDERS: Admitting Provider Hospitalist; Emergency Provider Emergency Medicine; PCP Nurse Practitioner Family; Visit Provider Specialist | DX: K59.00 Constipation, unspecified (principal); R14.0 Abdominal distension (gaseous) | CPT/HCPCS: 74018 ==

== ENCOUNTER → 2025-07-11 13:56 | Outpatient (BNV) | payer OTHER, SELFPAY | PROVIDERS: Admitting Provider Hospitalist; Emergency Provider Emergency Medicine; PCP Nurse Practitioner Family; Visit Provider Internal Medicine | DX: B02.1 Zoster meningitis (principal) | CPT/HCPCS: 99222 ==

== ENCOUNTER → 2025-07-11 13:56 | Outpatient (BNV) | payer OTHER, SELFPAY | PROVIDERS: Admitting Provider Hospitalist; Emergency Provider Emergency Medicine; PCP Nurse Practitioner Family; Visit Provider Internal Medicine Hypertension Specialist | DX: N18.9 Chronic kidney disease, unspecified (principal) | CPT/HCPCS: 99223 ==

== ENCOUNTER → 2025-07-11 13:56 | Outpatient (BNV) | payer OTHER, SELFPAY | PROVIDERS: Admitting Provider Hospitalist; Emergency Provider Emergency Medicine; PCP Nurse Practitioner Family; Visit Provider Hospitalist | DX: B02.1 Zoster meningitis (principal); I10 Essential (primary) hypertension | CPT/HCPCS: 99223; 99499 ==

== ENCOUNTER 2025-07-26 13:18 | Outpatient (AMB) | payer OTHER, SELFPAY ==
--- OUTSIDE RECORDS SUMMARY | 2024-06-21 07:19 | XMS_ITS | Encounter Summary ---
Author Organization [facility] Address [address] [place] [address] Care Team Providers Care Nuisance Wildlife Trapper Name Role Phone Teodora Lisa MD Primary Care Provider [phone] Encounter Details Date Type Department Care Team (Late st Contact Info) Description 06/21/2024 8:19 AM EDT Hospital Encounter TH HISTORIC ENCOUNTERS EASTERN CONVERSION ONLY Maryuri Quinteros, CEMENT SPRAYER HELPER [address] [place], [place] Gastro-esophageal reflux disease without esophagitis Social History Tobacco Use Types Packs/Day Years Used Date Smoking Tobacco: Former Cigarettes 2.5 11.4 0 09/12/2001 - 01/18/2013 Smokeless Tobacco: Never Alcohol Use Standard Drinks/Week Comments No 0 (1 standard drink = 0.6 oz pur e alcohol) Sex and Gender Information Value Date Recorded Sex Assigned at Not on file Legal Sex Male 3:32 PM EST Gender Identity Not on file Sexual Orientation Not on file documented as of this encounter Plan of Treatment Upcoming Encounters Date Type Department Care Team (Late Contact Info) Description 08/07/2025 1:30 PM EST Office Visit Adult Medicine [address] [phone] Teodora Lisa MD [address] [place] [address] documented as of this encounter Procedures Procedure Name Priority Date/Time Associated Diagnosis Comments CR BARIUM SWALLOW Routine 06/21/2024 11: 37 AM EDT Gastro-esophageal reflux disease without esophagitis documented in this encounter Results * CR BARIUM SWALLOW (06/21/2024 11:37 AM EDT) Anatomical Region Laterality Modality Radiographic Lo ging 06/21/2024 8:27 AM EDT Narrative 06/21/2024 11:37 AM EDT [facility] Diagnostic Imaging Department [address] [place] [id number] Patient: CASE CROUCH /Age/Sex: 1990 - 33 - M Unit#: [id number] Location/Status: [facility]/REG CLI Mnemonic/Ordering Site: [facility] Ordering Physician: LINDA QUINTEROS APRN CR Barium Swallow - 06/21/24905 Report Status:Signed FINDINGS: Double contrast esophagram performed. Exam somewhat limited due to patient inability to tolerate contrast while lying flat. COMPARISON: 2 view chest x-ray July 13, 2023 HISTORY: Patient is a 33-year-old male with history of choking, globus sensation, GERD. Nurse Coordinator radiographs: 1 view chest x-ray demonstrates cardiac and mediastinal borders within normal limits. Lungs are clear bilaterally. Costophrenic angles are sharp. 1 view lateral soft tissue neck demonstrates no prevertebral soft tissue masses. Airway is widely patent. There is loss of cervical lordosis. Effervescent crystals were administered orally. Thick and thin barium were administered orally under fluoroscopic control. Pharyngoesophagram: Rapid sequence imaging of the hypopharynx during swallowing demonstrates prompt initiation of swallowing. There is normal soft palate elevation and normal epiglottic motion. There is no laryngeal penetration or dorcas aspiration. There is no residual in the vallecula nor in the piriform sinuses. Thoracic esophagus: Mild esophageal dysmotility as demonstrated by slow transit of contrast down the esophagus and visualized tertiary contractions. Normal distensibility. Mucosal pattern is without evidence of ulceration or mass formation, but does show evidence of feline esophagus particularly in its mid to proximal portions. There is mild to moderate circumferential narrowing at the area of the GE junction consistent across all images with question of thickening of mucosal folds, concerning for stricture in the setting of reflux esophagitis. 13 mm barium tablet does flow freely past this area, however. Hiatal hernia: There is a small, sliding, axial hiatal hernia. Reflux: Unable to elicit DAP: 904.3 uGym^2 Exam performed and dictated by: Carmen Gaona PA-C Supervising physician: Karen Thomas MD IMPRESSION: Exam somewhat limited due to patient inability to tolerate contrast while lying flat. 1. Mild esophageal dysmotility. 2. Feline esophagus. 3. Small, sliding, axial hiatal hernia without visualized gastroesophageal reflux 4. Riaq-zo-hroczlxw circumferential narrowing at the area of the GE junction with question of thickening mucosal folds, concerning for stricture in the setting of reflux esophagitis. Consider direct visualization with endoscopy. Dictating Physician: KAREN THOMAS MD Electronically Signed by: KAREN THOMAS MD Dic Date/Time: 06/21/24 1106 Sign date/Time: 06/21/24 1137 Procedure Note Karen Thomas MD - 07/10/2024 [facility] Diagnostic Imaging Department [address] [place] [address] [id number] Patient: CASE CROUCH /Age/Sex: 1990 - 33 - M Unit#: [id number] Location/Status: [facility]/REG CLI Mnemonic/Ordering Site: [facility] Ordering Physician: LINDA QUINTEROS APRN CR Barium Swallow - 06/21/24 - 905 Report Status:Signed FINDINGS: Double contrast esophagram performed. Exam somewhat limited dueto patient inability to tolerate contrast while lying flat. COMPARISON: 2 view chest x-ray July 13, 2023 HISTORY: Patient is a 33-year-old male with history of choking, globus sensation, GERD. Nurse Coordinator radiographs: 1 view chest x-ray demonstrates cardiac andmediastinal borders within normal limits. Lungs are clear bilaterally. Costophrenicangles are sharp. 1 view lateral soft tissue neck demonstrates no prevertebralsoft tissue masses. Airway is widely patent. There is loss of cervicallordosis. Effervescent crystals were administered orally. Thick and thin bariumwere administered orally under fluoroscopic control. Pharyngoesophagram: Rapid sequence imaging of the hypopharynx duringswallowing demonstrates prompt initiation of swallowing. There is normal softpalate elevation and normal epiglottic motion. There is no laryngeal penetrationor dorcas aspiration. There is no residual in the vallecula nor in thepiriform sinuses. Thoracic esophagus: Mild esophageal dysmotility as demonstrated by slowtransit of contrast down the esophagus and visualized tertiary contractions.Normal distensibility. Mucosal pattern is without evidence of ulceration ormass formation, but does show evidence of feline esophagus particularly in itsmid to proximal portions. There is mild to moderate circumferential narrowing atthe area of the GE junction consistent across all images with question ofthickening of mucosal folds, concerning for stricture in the setting of refluxesophagitis. 13 mm barium tablet does flow freely past this area, however. Hiatal hernia: There is a small, sliding, axial hiatal hernia. Reflux: Unable to elicit DAP: 904.3 uGym^2 Exam performed and dictated by: Carmen Gaona PA-C Supervising physician: Karen Thomas MD IMPRESSION: Exam somewhat limited due to patient inability to tolerate contrast whilelying flat. 1. Mild esophageal dysmotility. 2. Feline esophagus. 3. Small, sliding, axial hiatal hernia without visualizedgastroesophageal reflux 4. Dtfl-gb-kqkhxzud circumferential narrowing at the area of the GEjunction with question of thickening mucosal folds, concerning for stricture inthe setting of reflux esophagitis. Consider direct visualization withendoscopy. Dictating Physician: KAREN THOMAS MD Electronically Signed by: KAREN THOMAS MD Dic Date/Time: 06/21/24 1106 Sign date/Time: 06/21/24 1137 us Maryuri Quinteros CEMENT SPRAYER HELPER IMG XR PROCEDURES Final Resu lt documented in this encounter Visit Diagnoses Diagnosis Gastro-esophageal reflux disease without esophagitis documented in this encounter Care Teams Nuisance Wildlife Trapper Relationship Specialty Start Date End Date Teodora Lisa MD [address] [place] [address] PCP - General Internal Medicine 12/04/15 documented as of this encounter
--- NOTE | 2025-07-26 13:09 | A.OFFVIS_ITS ---
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 The patient was treated in-hospital following the diagnosis of Herpes Zoster with complications involving meningoencephalitis. The focus during hospitalization was directed towards the management and resolution of these conditions over a 14-day therapeutic regimen. The initial presentation included Zoster lesions on the neck area which were resolved post-treatment. The patient reports complete resolution of the lesions with no recurrence. The timeline does not detail additional symptomatic progression or factors linked to symptom aggravation. The patient has completed the prescribed treatment without any mentioned complications or adverse events. Review of Systems - General: Denies fever - Neurological: Denies headache, other focal neurological symptoms Physical Exam - Vitals- Stable - Oropharynx- Clear - Thorax- Lungs clear to auscultation - Cardiovascular- Rhythm regular - Abdomen- Soft, non-tender - Extremities- Non-tender - Neurological- Focal exam findings absent - Skin- Zoster lesions cleared over neck area Results Plan Patient was informed and verbally consented to the use of an ambient scribe for clinic note documentation during this visit. 1. Herpes Zoster The 14-day treatment for Herpes Zoster is completed with successful resolution of lesions on the neck. I have instructed for the central line to be removed, considering no further intravenous therapy is necessary. The patient will be re- evaluated as needed, primarily if symptoms reappear. 2. Meningoencephalitis Meningoencephalitis was treated during the hospital stay over a 14-day period with complete recovery confirmed by a focused neurological examination. The patient was advised to report any recurrence of symptoms immediately, although he presently displays no neurological deficits. Further follow-up will be contingent on any future developments. Discussion Notes I discussed with the patient the successful resolution of Herpes Zoster and meningoencephalitis post-treatment. We reviewed the plan to remove the central line given that further intravenous therapies are not anticipated at this time. I advised vigilance for any recurring symptoms and emphasized the importance of immediate reporting should any neurological symptoms re-emerge. The patient expressed understanding and agreement with the outlined plan. Medical Decision Making The patient's conditions, Herpes Zoster and meningoencephalitis, have resolved following completion of a 14-day treatment course. The medical decision to remove the central line is based on the resolution of symptoms and the lack of ongoing need for intravenous access. The follow-up plan stresses monitoring for any signs of recurrence or complications, with instructions for the patient to seek immediate care should new symptoms arise. The successful resolution of the current treatments precludes any need for additional interventions at present, emphasizing continued surveillance and patient education concerning symptom monitoring. Patient Instructions - You should monitor for any new or worsening symptoms, especially neurological ones. - Please report immediately to a healthcare provider if you notice any troubling signs. - Your central line will be removed since further IV treatment is not required. - Contact the clinic as needed for any concerns or if the herpes zoster rash appears again. [facility] Medical History HTN (hypertension) Social History Household Members: Spouse Housing: Apartment Patient Tobacco Use Status: Never used Tobacco service: No Physical Exam Vital Signs: Last Vital Signs Pulse 78 07/26/25 13:24 Pulse Ox 98 07/26/25 13:24 Oxygen Delivery Method Room Air 07/26/25 13:24 BMI result Body Mass Index 33.4 Assessment & Plan Assessment & Plan (1) Meningitis: Code(s): G03.9 - Meningitis, unspecified Category: Medical Plan: as per plan (2) Varicella zoster meningitis: Code(s): B02.1 - Zoster meningitis Category: Medical Plan: as above Orders: Orders IR cvc remove any age Today G03.9 - Meningitis, unspecified Medications: Discontinued ondansetron Discontinued Reason: Patient no longer taking 4 mg PO Q8H PRN 15 tabs 0RF nausea and vomiting Coding Level of Care Code Est Pt Level 3 (87345) Diagnoses Meningitis G03.9 Varicella zoster meningitis B02.1
[2025-07-26 13:24] VITALS: PULSE 78; O2SAT 98; BMI 33.4
--- OUTSIDE RECORDS SUMMARY | 2025-07-26 19:31 | XMS_ITS | Encounter Summary ---
Author Organization [facility] Address [address] [place] [address] Care Team Providers Care Car Installations Supervisor Name Role Phone Teodora Lisa MD Primary Care Provider [phone] Reason for Visit * Reason Onset Date Comments Follow-up 07/21/2025 [place]/hospi vadim follow up Encounter Details Date Type Department Care Team (Late st Contact Info) Description 07/21/2025 Results Follow-Up Adult Medicine [facility] [address] [place] [address] Maryuri Quinteros NP [address] [place], [place] Social History Tobacco Use Types Packs/Day Years [...] as of this encounter Progress Notes * Maryuri Quinteros NP - 07/21/2025 7:30 PM EST Patient was possible seen at [facility] [facility]. Ct scan was sent to me. No acute finding. However, please call patient and triage for ER/hospital follow up Thanks documented in this encounter Plan of Treatment Upcoming Encounters Date Type Department Care Team (Late st Contact Info) Description 08/07/2025 1:30 PM EST Office Visit Adult Medicine [facility] [address] [place] [address] Teodora Lisa MD [address] [place] [address] documented as of this encounter Visit Diagnoses Not on filedocumented in this encounter Care Teams Car Installations Supervisor Relationship Specialty Start Date End Date Teodora Lisa MD [address] [place] [address] [phone] PCP - General Internal Medicine 12/04/15 documented as of this encounter
--- OUTSIDE RECORDS SUMMARY | 2025-07-26 19:31 | XMS_ITS | Encounter Summary ---
Author Organization [facility] Address [address] [place] [address] Care Team Providers Care Scrum Project Manager Name Role Phone Teodora Lisa MD Primary Care Provider [phone] Reason for Visit * Reason Onset Date Comments Meningitis 07/23/2025 Herpes Zoster 07/23/2025 Fever 07/23/2025 Encounter Details Date Type Department Care Team (Late st Contact Info) Description 07/23/2025 Telephone Adult Medicine [address] [phone] Teodora Lisa MD [address] [place], [place] [phone] Social History Tobacco Use Types Packs/Day Years [...] as of this encounter Progress Notes * Marium Francis RN - 07/23/2025 12:39 PM EST Pt booked for 08/07 at 1:30 * uCca Chaves - 07/23/2025 11:54 AM EST Hospital/ER follow up appointment needed Hospital patient was treated at: [facility] Was this only an ER visit or was the patient admitted to the hospital? Admitted to the hospital/kept overnight Date of visit if ER visit only: 07/11/2025 If patient was admitted what was the date of discharge? 07/16/2025 Reason/diagnosis for visit or stay: shingle, high fever, meningitis When was the patient told to follow up? PETRA Was visit or stay related to an injury? If yes, what was the date of injury (DOI)? No If yes, was the injury due to: Not 3rd green party related documented in this encounter Plan of Treatment Upcoming Encounters Date Type Department Care Team (Late st Contact Info) Description 08/07/2025 1:30 PM EST Office Visit Adult Medicine [address] [phone] Teodora Lisa MD [address] [place] [address] documented as of this encounter Visit Diagnoses Not on filedocumented in this encounter Care Teams Scrum Project Manager Relationship Specialty Start Date End Date Teodora Lisa MD [address] [place] [phone] PCP - General Internal Medicine 12/04/15 documented as of this encounter
--- OUTSIDE RECORDS SUMMARY | 2025-07-26 19:32 | XMS_ITS | Encounter Summary ---
Author Organization [facility] Address [address] [place] [address] Care Team Providers Care Surgical Aide Name Role Phone Teodora Lisa MD Primary Care Provider [phone] Reason for Visit * Reason Onset Date Comments Abnormal X-ray 07/21/2025 Encounter Details Date Type Department Care Team (Late st Contact Info) Description 07/21/2025 Results Follow-Up Adult Medicine [facility] [address] [place] [address] Maryuri Quinteros NP [address] [place], [place] Social History Tobacco Use Types Packs/Day [...] Notes * Maryuri Quinteros NP - 07/21/2025 5:44 PM EST Patient was in the ER. Please call patient to triage and schedule ER follow up. documented in this encounter Plan of Treatment Upcoming Encounters Date Type Department Care Team (Late st Contact Info) Description 08/07/2025 1:30 PM EST Office Visit Adult Medicine [facility] [address] [place] [phone] Teodora Lisa MD [address] [place] [address] documented as of this encounter Visit Diagnoses Not on filedocumented in this encounter Care Teams Surgical Aide Relationship Specialty Start Date End Date Teodora Lisa MD [address] [place] [id number] PCP - General Internal Medicine 12/04/15 documented as of this encounter
--- OUTSIDE RECORDS SUMMARY | 2025-07-26 19:32 | XMS_ITS | Clinical Summary ---
Author Organization [facility] [address] [place] [address] Address [address] [place], [place] Phone Care Team Providers Care Guide Foreign Tour Name Role Phone Teodora Lisa MD Primary Care Provider [phone] Allergies Active Allergy Reactions Criticality Noted Date [...] Bilateral hearing aides s/p Cochlear Implant at [facility] [address] Melendez Hypertension 02/27/2016 Encounters Date Type Department Care Team Description 07/23/2025 Telephone Adult Medicine [address] [phone] Teodora Lisa MD 07/21/2025 Results Follow-Up Adult Medicine [address] [phone] Maryuri Quinteros NP 07/21/2025 Results Follow-Up Adult Medicine [address] [phone] Maryuri Quinteros NP 06/12/2025 Telephone Adult Medicine [address] [phone] Fernando Pulido [place] from Last 3 Months Immunizations Immunization Administration Dates Next Due DTaP (Infanrix) 6wks to less than 7yo ,07/02/1996,09/23/1995,06/21,02/04/1995 [id number] (Pentacel) 2mo to less than 5yo 07/02/1996,09/23/1995,06/21/1995,02/04 [...] Surgical History Surgery Date Site/Laterality Comments NEPHRECTOMY 2008 PROCEDURE: HISTORICAL NEPHRECTOMY; COMMENT: and adrenalectomy OTHER SURGICAL HISTORY PROCEDURE: [place] INCISION & DRAINAGE PILONIDAL CYST SIMPLE Medical [...] healthy, no meds Mother live s in [place] Other: deaf Sister Relation Name Status Comments [...] 1:30 PM EST Office Visit Adult Medicine [facility] [address] [place] [phone] Teodora Lisa MD [address] [place] [phone] Health Maintenance Due Date Last Done Comments [...] Procedure Name Priority Date/Time Associated Diagnosis Comments EXTERNAL XRAY REPORT 07/14/2025 EXTERNAL XRAY REPORT 07/14/[address] REPORT 07/11/[address] REPORT 07/11/2025 EXTERNAL XRAY REPORT 07/11/2025 EXTERNAL XRAY REPORT 07/11/2025 HM DEPRESSION SCREENING Routine 02/23/2024 ANNUAL BMP BLOOD TEST Routine 02/23/2024 LIPID PANEL Routine 02/23/2024 from Last 3 Months or Most Recently Relevant to Health Maintenance Results * External Xray Report (07/14/2025) Only the most recent of4 resultswithin the time period is included. Anatomical Region Laterality Modality Radiographic Lo ging Provider [facility] XR PROCEDURES Final Result * External CT Report (07/11/2025) Only the most recent of2 resultswithin the time period is included. Anatomical Region Laterality Modality Computed Tomogra phy Provider [facility] CT PROCEDURES Final Result * Annual BMP Blood Test (02/23/2024) Pathologist [facility] Annual BMP Blood Test abstracted Result [facility] Provider HEALTH MAINTENANCE Final Result * Depression Screening (02/23/2024) Pathologist [facility] Depression Screening abstracted Result [facility] Provider HEALTH MAINTENANCE Final Result * (ABNORMAL) Lipid panel (02/23/2024) [facility] LDL/HDL Ratio 5(A) 0 - 4 Triglycerides 189(A) 0 - 150 mg/dL Cholesterol 152 0 - 200 mg/dL HDL 30(A) >=40 mg/dL LDL Cholesterol 85 0 - 100 mg/dL Blood Venous blood specimen / Unknown Result [facility] Provider LAB BLOOD ORDERABLES Tereza l Result from Last 3 Months or Most Recently Relevant to Health Maintenance [place] [address] [place] [address] HEALTH PLAN Care Teams Guide Foreign Tour Relationship Specialty Start Date End Date Teodora Lisa MD [address] [place] [phone] PCP - General Internal Medicine 12/04/15
== END 2025-07-26 13:50 | disposition home or self-care (01) ==
LOC: HO.HID 13:18
PROVIDERS: PCP Nurse Practitioner Family; Visit Provider Internal Medicine
DX: G03.9 Meningitis, unspecified (principal); B02.1 Zoster meningitis
CPT/HCPCS: 99213

== ENCOUNTER → 2025-07-26 13:18 | Outpatient (BNVA) | payer OTHER, SELFPAY | PROVIDERS: PCP Nurse Practitioner Family; Visit Provider Internal Medicine | DX: G03.9 Meningitis, unspecified (principal); B02.1 Zoster meningitis | CPT/HCPCS: 99212 ==